=== PATIENT | male | born 1965 | race African-American/Black ===

== ENCOUNTER 2016-05-26 12:11 | Inpatient (IN) | payer MEDICARE, OTHER ==
[~2016-05-26] VITALS: Ht 167.6 cm; Wt 82.6 kg
[~2016-05-26 12:11] MED LIST: AMITRIPTYLINE MC; AMITRIPTYLINE25 MG ORAL; AMLODIPINE BES2.5 MG ORAL; CLONIDINE HCL0.1 MG PO; GABAPENTIN100 MG ORAL; GABAPENTIN300 MG ORAL; LISINOPRIL-HCT1 EAC1 ORAL; LYRICA50 MG ORAL; LYRICA75 M1 ORAL; NAPROXEN500 M2 ORAL; NEURONTIN800 MG ORAL; NORCO 10/3251 EA ORAL; NORCO 5-325 TA1 EAC1 ORAL; NORCO 5-325 TA1 EACH ORAL; NORVASC10 MG ORAL; OMEPRAZOLE20 M2 PO; ROBAXIN500 MG PO; TRAMADOL HCL50 MG ORAL; ULTRAM50 MG ORAL; UNOBMED
[2016-05-26] MEDS ORDERED: Morphine Sulfate 4mg/ml Inj IVP ONE ×2 (12:45→14:00)
[2016-05-26 13:09] LABS: BASOPHILS % (AUTO) 1.3 % (0.0-2.0); EOSINOPHILS % (AUTO) 3.9 % (0.0-3.0); LYMPHOCYTES % (AUTO) 17.1 % (20.0-45.0); MEAN CORPUSCULAR HEMOGLOBIN 29.7 PG (27.0-31.0); MEAN CORPUSCULAR HGB CONC 31.7 G/DL (32.0-36.0); MEAN CORPUSCULAR VOLUME 94 FL (80-99); MEAN PLATELET VOLUME 10.9 FL (6.5-10.1); MONOCYTES % (AUTO) 5.5 % (1.0-10.0); NEUTROPHILS % (AUTO) 72.2 % (45.0-75.0); PLATELET COUNT 192 K/UL (150-450); RED BLOOD COUNT 4.94 M/UL (4.70-6.10); RED CELL DISTRIBUTION WIDTH 13.3 % (11.6-14.8); WHITE BLOOD COUNT 7.9 K/UL (4.8-10.8)
[2016-05-26 13:22] LABS: ALBUMIN/GLOBULIN RATIO 1.6 (1.0-2.7); CALCIUM 9.7 mg/dL (8.6-10.2); CREATININE 1.7 mg/dL (0.7-1.2); GLOMERULAR FILTRATION RATE 52.2 mL/min (>60); POTASSIUM 3.9 mEQ/L (3.4-4.9); TOTAL PROTEIN 7.8 g/dL (6.6-8.7)
[2016-05-26 13:26] LABS: TROPONIN I < 0.30 ng/mL (<=0.30)
[2016-05-26 13:42] LABS: CKMB 1.9 ng/mL (< 6.7)
[2016-05-26 13:45] VITALS: BP 175/106
--- NOTE | 2016-05-26 14:40 | Diagnostic Imaging Report ---
Indication: Chest pain Technique: Single portable AP view of the chest. Findings: Comparison: 02/25/16 The bones and extra pulmonary soft tissues, cardiomediastinal silhouette, pulmonary vasculature and parenchyma, and pleural surfaces remain unremarkable. IMPRESSION: Negative portable AP chest, unchanged.
--- NOTE | 2016-05-26 15:02 | Emergency Room Report ---
History of Present Illness General Chief Complaint: Chest Pain Source: Patient, Medical Record Present Illness HPI 51-year-old male presents ED complaining of chest pain earache states symptoms started this morning while asleep, woke him up. Pain is sharp, midsternal, 10 out of 10. Worse with movement. Admits to shortness of breath. No other aggravating relieving factors. Patient states he also "passed out". Patient has history of heart disease and syncope. Denies smoking or drug use. PMD is Dr. Harry. Allergies: Coded Allergies: KETOROLAC (Unverified Adverse Reaction, Intermediate, n/v, 05/18/14) Uncoded Allergies: TORODOL (Allergy, Unknown, 02/25/16) Patient History Past Medical History: HTN, CVA/TIA Past Surgical History: other - spinal fusion Pertinent Family History: none Social History: Denies: alcohol use, drug use, smoking Immunizations: UTD Reviewed Nursing Documentation: PMH: Agreed, PSxH: Agreed Nursing Documentation-PMH Past Medical History: No History, Except For Hx Cardiac Problems: Yes Hx Hypertension: Yes Hx Cancer: No Hx Gastrointestinal Problems: No Hx Neurological Problems: Yes - spinal fusion Hx Cerebrovascular Accident: Yes - spinal fusion and stroke 2010 (left sided deficit) Hx Neurologic Surgery: Yes - brain surgery at [facility] Review of Systems All Other Systems: negative except mentioned in HPI Physical Exam Vital Signs Date Time Temp Pulse Resp B/P Pulse Ox O2 Delivery O2 Flow Rate FiO2 05/26/16 12:15 98.1 70 16 179/102 99 Room Air Sp02 EP Interpretation: reviewed, normal General Appearance: no apparent distress, alert, GCS 15, non-toxic Head: normocephalic, atraumatic Eyes: bilateral eye PERRL, bilateral eye normal inspection ENT: hearing grossly normal, normal pharynx, no angioedema, normal voice Neck: full range of motion, supple/symm/no masses Respiratory: chest non-tender, lungs clear, normal breath sounds, speaking full sentences Cardiovascular #1: regular rate, rhythm, no edema Cardiovascular #2: 2+ carotid (R), 2+ carotid (L), 2+ radial (R), 2+ radial (L) , 2+ dorsalis pedis (R), 2+ dorsalis pedis (L) Gastrointestinal: normal bowel sounds, non tender, soft, non-distended, no guarding, no rebound Rectal: deferred Genitourinary: normal inspection, no CVA tenderness Musculoskeletal: back normal, gait/station normal, normal range of motion, non- tender Neurologic: alert, oriented x3, responsive, motor strength/tone normal, sensory intact, speech normal Psychiatric: judgement/insight normal, memory normal, mood/affect normal, no suicidal/homicidal ideation Reflexes: 3+ bicep (R), 3+ bicep (L), 3+ tricep (R), 3+ tricep (L), 3+ knee (R) , 3+ knee (L) Skin: normal color, no rash, warm/dry, well hydrated Lymphatic: no adenopathy Medical Decision Making Diagnostic Impression: Primary Impression: ACS (acute coronary syndrome) Additional Impression: Syncope Qualified Codes: R55 - Syncope and collapse ER Course Hospital Course 51-year-old male presents ED complaining of chest pain, syncope Differential diagnoses include: MA/unstable angina, contusion, muscle strain, PTX, rib fracture Clinical course Patient placed on stretcher. on personnel monitor. After initial history and physical I ordered labs, EKG, chest x-ray, ASA, morphine labs reviewed- no leukocytosis, hb/hct stable, electrolytes ok, trop negative Chest x-ray- no acute process Given risk factors and presentation I believe patient should be admitted. Case discussed with Dr. Harry and he agreed to accept the patient to his service for further care and support I. I feel this is a highly complex case requiring extensive working including EKG/Rhythm strip, Xray/CT/US, Blood/urine lab work, repeat exams while in ED, and administration of strong opiates/narcotics for pain control, admission to hospital or close patient follow up. Diagnosis - ACS, syncope admitted to telemetry in serious condition Labs Test 05/26/16 12:48 White Blood Count 7.9 K/UL (4.8-10.8) Red Blood Count 4.94 M/UL (4.70-6.10) Hemoglobin 14.7 G/DL (14.2-18.0) Hematocrit 46.3 % (42.0-52.0) Mean Corpuscular Volume 94 FL (80-99) Mean Corpuscular Hemoglobin 29.7 PG (27.0-31.0) Mean Corpuscular Hemoglobin Concent 31.7 G/DL (32.0-36.0) Red Cell Distribution Width 13.3 % (11.6-14.8) Platelet Count 192 K/UL (150-450) Mean Platelet Volume 10.9 FL (6.5-10.1) Neutrophils (%) (Auto) 72.2 % (45.0-75.0) Lymphocytes (%) (Auto) 17.1 % (20.0-45.0) Monocytes (%) (Auto) 5.5 % (1.0-10.0) Eosinophils (%) (Auto) 3.9 % (0.0-3.0) Basophils (%) (Auto) 1.3 % (0.0-2.0) Sodium Level 140 mEQ/L (135-145) Potassium Level 3.9 mEQ/L (3.4-4.9) Chloride Level 99 mEQ/L (98-107) Carbon Dioxide Level 26 mEQ/L (20-30) Anion Gap 15 (5-15) Blood Urea Nitrogen 12 mg/dL (7-23) Creatinine 1.7 mg/dL (0.7-1.2) Estimat Glomerular Filtration Rate 52.2 mL/min (>60) Glucose Level 107 mg/dL (74-106) Calcium Level 9.7 mg/dL (8.6-10.2) Total Bilirubin 0.6 mg/dL (0.0-1.2) Aspartate Amino Transf (AST/SGOT) 14 U/L (5-40) Alanine Aminotransferase (ALT/SGPT) 9 U/L (3-41) Alkaline Phosphatase 35 U/L (40-129) Total Creatine Kinase 316 U/L (38-174) Creatine Kinase MB 1.9 ng/mL (< 6.7) Creatine Kinase MB Relative Index 0.6 Troponin I < 0.30 ng/mL (<=0.30) Pro-B-Type Natriuretic Peptide 261 pg/mL (0-125) Total Protein 7.8 g/dL (6.6-8.7) Albumin 4.8 g/dL (3.5-5.2) Globulin 3.0 g/dL Albumin/Globulin Ratio 1.6 (1.0-2.7) Urine Opiates Screen Negative (NEGATIVE) Urine Barbiturates Screen Negative (NEGATIVE) Phencyclidine (PCP) Screen Negative (NEGATIVE) Urine Amphetamines Screen Negative (NEGATIVE) Urine Benzodiazepines Screen Negative (NEGATIVE) Urine Cocaine Screen Negative (NEGATIVE) Urine Marijuana (THC) Screen Positive (NEGATIVE) EKG Diagnostic Results Rate: normal Rhythm: NSR ST Segments: no acute changes ASA given to the pt in ED: Yes Rhythm Strip Diag. Results EP Interpretation: yes Rhythm: NSR, no PVC's, no ectopy Chest X-Ray Diagnostic Results EP Interpretation: Yes Findings: no consolidation, no effusion, no pneumothorax, no acute cardiopulmonary disease Number of Views: 1 Last Vital Signs Date Time Temp Pulse Resp B/P Pulse Ox O2 Delivery O2 Flow Rate FiO2 05/26/16 13:45 66 18 175/106 99 Room Air 05/26/16 12:15 98.1 Status: improved Disposition: ADMITTED INPATIENT Condition: Serious Referrals: ARELY HARRY (PCP) RAYMUNDO VALDEZ M.D. May 26, 2016 15:02
[2016-05-26 15:23] VITALS: BP 132/108
[2016-05-26 16:59] VITALS: BP 152/103
[2016-05-26] MEDS ORDERED: Naproxen 500mg tab ORAL PRN (20:45)
[2016-05-26] MEDS: HYDROmorphone 1mg/ml Carpuject IVP PRN (21:35)
[2016-05-27 01:21] VITALS: BP 150/100
[2016-05-27 04:12] VITALS: BP 149/102
[2016-05-27] MEDS: HYDROmorphone 1mg/ml Carpuject IVP PRN ×3 (06:17→18:28)
[2016-05-27 08:00] VITALS: BP 130/66
[2016-05-27 08:19] LABS: TROPONIN I < 0.30 ng/mL (<=0.30)
[2016-05-27 08:35] LABS: CALCIUM 9.4 mg/dL (8.6-10.2); CREATININE 1.6 mg/dL (0.7-1.2); POTASSIUM 4.3 mEQ/L (3.4-4.9)
[2016-05-27 08:49] LABS: BASOPHILS % (AUTO) 0.8 % (0.0-2.0); EOSINOPHILS % (AUTO) 5.8 % (0.0-3.0); LYMPHOCYTES % (AUTO) 22.8 % (20.0-45.0); MEAN CORPUSCULAR HGB CONC 31.2 G/DL (32.0-36.0); MEAN CORPUSCULAR VOLUME 96 FL (80-99); MEAN PLATELET VOLUME 9.4 FL (6.5-10.1); MONOCYTES % (AUTO) 6.2 % (1.0-10.0); NEUTROPHILS % (AUTO) 64.5 % (45.0-75.0); PLATELET COUNT 172 K/UL (150-450); RED BLOOD COUNT 4.57 M/UL (4.70-6.10); WHITE BLOOD COUNT 6.8 K/UL (4.8-10.8)
[2016-05-27] MEDS: Lisinopril 20mg tab ORAL SCH ×2 (09:06→18:28)
[2016-05-27 12:37] LABS: TROPONIN I < 0.30 ng/mL (<=0.30)
--- NOTE | 2016-05-27 13:04 | Nephrology Progress Note ---
Assessment/Plan Problem List: (1) Back complaints (2) back (3) Fall (4) Renal failure (ARF), acute on chronic (5) Syncope (6) ACS (acute coronary syndrome) Plan nephrology consult dictation # [id number] Subjective Constitutional: Denies: chills, diaphoresis, fever, malaise, no symptoms, other , weakness HEENT: Denies: blurred vision, double vision, ear discharge, ear pain, eye pain , mouth pain, mouth swelling, no symptoms, nose congestion, nose pain, other, tearing, throat pain, throat swelling Genitourinary: Denies: burning, discharge, flank pain, frequency, hematuria, incontinence, no symptoms, other, pain, urgency Neurologic/Psychiatric: Denies: anxiety, depressed, emotional problems, headache, no symptoms, numbness, other, paresthesia, pre-existing deficit, seizure, tingling, tremors, weakness Objective Objective Last 24 Hour Vital Signs Date Time Temp Pulse Resp B/P Pulse Ox O2 Delivery O2 Flow Rate FiO2 05/27/16 09:06 132/66 05/27/16 08:00 75 05/27/16 08:00 97.7 81 17 130/66 95 Room Air 05/27/16 06:47 98.2 05/27/16 04:12 97.7 58 20 149/102 97 Room Air 05/27/16 04:00 70 05/27/16 01:21 98.0 70 20 150/100 98 Room Air 05/26/16 20:00 65 05/26/16 17:08 99.0 74 15 152/103 99 Room Air 05/26/16 16:59 99.0 74 15 152/103 99 Room Air 05/26/16 15:26 99.3 05/26/16 15:23 99.3 75 17 132/108 98 Room Air 05/26/16 13:45 66 18 175/106 99 Room Air Intake and Output 05/26/16 05/27/16 19:00 07:00 Intake Total 60 ml Balance 60 ml Intake Oral 60 ml # Voids 1 Laboratory Tests 05/27/16 06:35: White Blood Count 6.8, Red Blood Count 4.57L, Hemoglobin 13.7L, Hematocrit 43.8 , Mean Corpuscular Volume 96, Mean Corpuscular Hemoglobin 30.0, Mean Corpuscular Hemoglobin Concent 31.2L, Red Cell Distribution Width 13.0, Platelet Count 172, Mean Platelet Volume 9.4, Neutrophils (%) (Auto) 64.5, Lymphocytes (%) (Auto) 22.8, Monocytes (%) (Auto) 6.2, Eosinophils (%) (Auto) 5.8H, Basophils (%) (Auto) 0.8, Sodium Level 144, Potassium Level 4.3, Chloride Level 102, Carbon Dioxide Level 27, Anion Gap 15, Blood Urea Nitrogen 12, Creatinine 1.6H, Estimat Glomerular Filtration Rate 56.0, Glucose Level 91, Calcium Level 9.4, Troponin I < 0.30 05/27/16 12:00: Troponin I < 0.30 Height (Feet): 5 Height (Inches): 6.00 Weight (Pounds): 182 Soraya Cardenas N.P. May 27, 2016 13:04
[2016-05-27 16:00] VITALS: BP 139/94
--- NOTE | 2016-05-27 17:40 | Cardiac Electrophysiology PN ---
Subjective Subjective [id number] Objective Last 24 Hour Vital Signs Date Time Temp Pulse Resp B/P Pulse Ox O2 Delivery O2 Flow Rate FiO2 05/27/16 16:00 98.1 64 20 139/94 99 Room Air 05/27/16 12:55 97.7 05/27/16 12:55 97.7 05/27/16 12:00 61 05/27/16 09:06 132/66 05/27/16 08:00 75 05/27/16 08:00 97.7 81 17 130/66 95 Room Air 05/27/16 04:12 97.7 58 20 149/102 97 Room Air 05/27/16 04:00 70 05/27/16 01:21 98.0 70 20 150/100 98 Room Air 05/26/16 20:00 65 Intake and Output 05/26/16 05/27/16 19:00 07:00 Intake Total 60 ml Balance 60 ml Intake Oral 60 ml # Voids 1 Laboratory Tests Test 05/27/16 06:35 05/27/16 12:00 White Blood Count 6.8 K/UL (4.8-10.8) Red Blood Count 4.57 M/UL (4.70-6.10) L Hemoglobin 13.7 G/DL (14.2-18.0) L Hematocrit 43.8 % (42.0-52.0) Mean Corpuscular Volume 96 FL (80-99) Mean Corpuscular Hemoglobin 30.0 PG (27.0-31.0) Mean Corpuscular Hemoglobin Concent 31.2 G/DL (32.0-36.0) L Red Cell Distribution Width 13.0 % (11.6-14.8) Platelet Count 172 K/UL (150-450) Mean Platelet Volume 9.4 FL (6.5-10.1) Neutrophils (%) (Auto) 64.5 % (45.0-75.0) Lymphocytes (%) (Auto) 22.8 % (20.0-45.0) Monocytes (%) (Auto) 6.2 % (1.0-10.0) Eosinophils (%) (Auto) 5.8 % (0.0-3.0) H Basophils (%) (Auto) 0.8 % (0.0-2.0) Sodium Level 144 mEQ/L (135-145) Potassium Level 4.3 mEQ/L (3.4-4.9) Chloride Level 102 mEQ/L (98-107) Carbon Dioxide Level 27 mEQ/L (20-30) Anion Gap 15 (5-15) Blood Urea Nitrogen 12 mg/dL (7-23) Creatinine 1.6 mg/dL (0.7-1.2) H Estimat Glomerular Filtration Rate 56.0 mL/min (>60) Glucose Level 91 mg/dL (74-106) Calcium Level 9.4 mg/dL (8.6-10.2) Troponin I < 0.30 ng/mL (<=0.30) < 0.30 ng/mL (<=0.30) JAIDEN MCRAE May 27, 2016 17:40
--- NOTE | 2016-05-27 19:47 | Consultation ---
DATE OF CONSULTATION: 05/27/2016 PULMONARY CONSULTATION HISTORY OF PRESENT ILLNESS: This is a 51-year-old male who came to the hospital with chest pain. He also reports he has earache. The patient states that this rattling in his chest and discomfort woke him up from sleep. He also states he passed out. PAST MEDICAL HISTORY: Hypertension, CVA, spinal fusion. PAST SURGICAL HISTORY: He previously had tracheostomy in 2010 after a complicated stroke. LIST OF MEDICATIONS: Include Neurontin, Protonix, lisinopril, aspirin, Naprosyn, and tramadol. ALLERGIES: Listed to Toradol. SOCIAL HISTORY: Lives at home. Denies alcohol tobacco use. 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 REVIEW OF SYSTEMS: Denies any headaches, hematemesis, melena, hematochezia, night sweats, or weight loss. PHYSICAL EXAMINATION: GENERAL: Reveals a 51-year-old male VITAL SIGNS: Blood pressure 130/60, heart rate 94, respiration 18, afebrile, O2 saturation 95% on room air. HEENT: Unremarkable. He has a well-healed tracheostomy scar on his upper chest. CHEST: Clear breath sounds bilaterally. ABDOMEN: Soft. There is no edema. EXTREMITIES: His left upper and left lower extremity appear to be weak with 4+/5 power. LABORATORY AND DIAGNOSTIC DATA: Normal CBC. BMP is also unremarkable except creatinine 1.6. Toxicology screen positive for marijuana. Chest x-ray chest was obtained yesterday which shows clear lungs bilaterally. IMPRESSION: 1. Chest pain, atypical rule out acute coronary syndrome. 2. History of previous tracheostomy. 3. History of previous cerebrovascular accident with left hemiparesis, partial. 4. Marijuana use. DISCUSSION: The patient is doing well from a medical/pulmonary standpoint, saturating well on room air. At this point, I do not suspect infectious process or need for acute pulmonary intervention. We will follow as pension examiner. Thank you for the consultation. Saud Ellis M.D. DR: Hayley JOB#: [id number] CC:
[2016-05-27 20:00] VITALS: BP 175/100
[2016-05-27 20:47] LABS: TROPONIN I < 0.30 ng/mL (<=0.30)
[2016-05-27 20:49] VITALS: BP 156/94
[2016-05-27] MEDS: traMADol 50mg tab ORAL PRN (21:04)
[2016-05-28] VITALS: BP 152/98
[2016-05-28] MEDS: HYDROmorphone 1mg/ml Carpuject IVP PRN ×4 (00:01→19:08)
[2016-05-28 04:47] LABS: BASOPHILS % (AUTO) 1.9 % (0.0-2.0); EOSINOPHILS % (AUTO) 7.7 % (0.0-3.0); LYMPHOCYTES % (AUTO) 31.2 % (20.0-45.0); MEAN CORPUSCULAR HEMOGLOBIN 29.6 PG (27.0-31.0); MEAN CORPUSCULAR VOLUME 96 FL (80-99); MEAN PLATELET VOLUME 10.2 FL (6.5-10.1); MONOCYTES % (AUTO) 6.5 % (1.0-10.0); NEUTROPHILS % (AUTO) 52.7 % (45.0-75.0); PLATELET COUNT 199 K/UL (150-450); RED BLOOD COUNT 4.79 M/UL (4.70-6.10); RED CELL DISTRIBUTION WIDTH 13.5 % (11.6-14.8); WHITE BLOOD COUNT 7.6 K/UL (4.8-10.8)
--- NOTE | 2016-05-28 04:57 | Consultation ---
DATE OF CONSULTATION: CARDIOLOGY CONSULTATION REFERRING PHYSICIAN: Matheus Lucas M.D. REASON FOR CONSULTATION: Chest pain and syncope. HISTORY OF PRESENT ILLNESS: The patient is a 51-year-old gentleman with history of hypertension and history of CVA, came to the emergency room complaining of chest pain while he was asleep. The pain woke him up was 10/10. The patient also had shortness of breath. The patient also stated that subsequently he passed out and he stated he had history of syncope in the past. The patient was admitted and Cardiology consultation was obtained for further evaluation and management. REVIEW OF SYSTEMS: Negative other than what was mentioned in the history of present illness. PAST MEDICAL HISTORY: 1. Hypertension. 2. History of CVA in 2010 with left-sided deficit. 3. History of brain surgery at [facility]. 4. History of spinal fusion. FAMILY HISTORY: Noncontributory. PHYSICAL EXAMINATION: VITAL SIGNS: Blood pressure is 139/94, pulse 64, respirations 20, and he is afebrile. HEAD AND NECK: Shows no JVD. LUNGS: Clear. CARDIOVASCULAR: Shows regular S1 and S2 with no gallop or murmur. ABDOMEN: Soft and nontender. EXTREMITIES: No pitting edema. LABORATORY AND DIAGNOSTIC DATA: Labs showed white count of 6.8, hemoglobin 13.7, hematocrit 42.0, and platelet count 172,000. Troponin is negative x3. Sodium 144, potassium 4.2, BUN of 16, creatinine 1.6, and glucose of 91. BNP is 261. Urine toxicology screen is positive for marijuana. IMPRESSION AND PLAN: 1. Chest pain. The patient was ruled out for myocardial infarction. We will get an echocardiogram and schedule for nuclear stress test in the morning for further evaluation. 2. Orthostatic syncope. The patient was found to have similar episodes in the past. 3. Renal insufficiency. 4. Hypertension. Continue the patient on lisinopril 10 mg twice a day. 5. . Thank you very much, Dr. Lucas, for allowing me to participate in the care of this patient. Please do not hesitate to contact me for any questions regarding my evaluation. Dani Gould M.D. DR: SUSANNE JOB#: [id number] CC:
[2016-05-28 05:01] LABS: TROPONIN I < 0.30 ng/mL (<=0.30)
[2016-05-28 05:19] LABS: CALCIUM 9.2 mg/dL (8.6-10.2); CREATININE 1.7 mg/dL (0.7-1.2); GLOMERULAR FILTRATION RATE 52.2 mL/min (>60); POTASSIUM 4.4 mEQ/L (3.4-4.9)
[2016-05-28 08:00] VITALS: BP 138/99
--- NOTE | 2016-05-28 08:37 | Pulmonology Progress Note ---
Assessment/Plan Assessment/Plan 1. Chest pain, rule out acute coronary syndrome. 2. History of previous tracheostomy. 3. History of previous cerebrovascular accident with left hemiparesis, partial. 4. Marijuana use. DISCUSSION: The patient is doing well from a medical/pulmonary standpoint, saturating well on room air. At this point, I do not suspect infectious process or need for acute pulmonary intervention. I will follow as studio designer. Thank you for the consultation. Subjective Interval Events: No new events Constitutional: Reports: no symptoms HEENT: Repors: no symptoms Respiratory: Reports: no symptoms Cardiovascular: Reports: no symptoms Gastrointestinal/Abdominal: Reports: no symptoms Genitourinary: Reports: no symptoms Allergies: Coded Allergies: KETOROLAC (Unverified Adverse Reaction, Intermediate, n/v, 05/18/14) Uncoded Allergies: TORODOL (Allergy, Unknown, 02/25/16) Objective Last 24 Hour Vital Signs Date Time Temp Pulse Resp B/P Pulse Ox O2 Delivery O2 Flow Rate FiO2 05/28/16 03:46 57 05/28/16 00:00 96.4 52 20 152/98 93 Room Air 05/27/16 23:44 59 05/27/16 20:49 60 20 156/94 100 Room Air 05/27/16 20:00 98.0 66 21 175/100 100 Room Air 05/27/16 19:57 68 05/27/16 18:58 98.1 05/27/16 18:58 98.1 05/27/16 18:28 139/94 05/27/16 16:00 70 05/27/16 16:00 98.1 64 20 139/94 99 Room Air 05/27/16 12:00 61 05/27/16 09:06 132/66 Intake and Output 05/27/16 05/28/16 19:00 07:00 Intake Total 1040 ml Output Total 550 ml 600 ml Balance 490 ml -600 ml Intake Oral 1040 ml Output Urine Total 550 ml 600 ml # Voids 3 1 General Appearance: WD/WN HEENT: normocephalic Respiratory/Chest: chest wall non-tender, lungs clear Cardiovascular: normal peripheral pulses, normal rate Abdomen: normal bowel sounds Laboratory Tests 05/27/16 12:00: Troponin I < 0.30 05/27/16 20:00: Troponin I < 0.30 05/28/16 04:20: Troponin I < 0.30, White Blood Count 7.6, Red Blood Count 4.79, Hemoglobin 14.2 , Hematocrit 45.8, Mean Corpuscular Volume 96, Mean Corpuscular Hemoglobin 29.6 , Mean Corpuscular Hemoglobin Concent 31.0L, Red Cell Distribution Width 13.5, Platelet Count 199, Mean Platelet Volume 10.2H, Neutrophils (%) (Auto) 52.7, Lymphocytes (%) (Auto) 31.2, Monocytes (%) (Auto) 6.5, Eosinophils (%) (Auto) 7.7H, Basophils (%) (Auto) 1.9, Sodium Level 139, Potassium Level 4.4, Chloride Level 101, Carbon Dioxide Level 23, Anion Gap 15, Blood Urea Nitrogen 12, Creatinine 1.7H, Estimat Glomerular Filtration Rate 52.2, Glucose Level 95, Calcium Level 9.2 Current Medications Medications (Trade) Dose Ordered Sig/Mahsa Route PRN Reason Start Time Stop Time Status Last Admin Dose Admin Aspirin (ASA) 325 mg DAILY ORAL 05/27/16 09:00 06/26/16 08:59 05/27/16 09:02 Dextrose (Dextrose 50%) STAT PRN IV Hypoglycemia 05/26/16 20:30 06/25/16 20:29 Gabapentin (Neurontin) 100 mg THREE TIMES A DAY ORAL 05/27/16 09:00 06/26/16 08:59 05/27/16 18:28 Hydromorphone HCl (Dilaudid) 1 mg Q6H PRN IVP Severe Pain (Pain Scale 7-10) 05/26/16 20:45 06/02/16 20:44 05/28/16 06:01 Lisinopril (Prinivil) 20 mg BID ORAL 05/27/16 09:00 06/26/16 08:59 05/27/16 18:28 Naproxen (Naprosyn) 500 mg TIDPRN PRN ORAL Mild Pain (Pain Scale 1-3) 05/26/16 20:45 06/25/16 20:44 05/27/16 21:11 Pantoprazole (Protonix) 40 mg DAILY ORAL 05/27/16 09:00 06/26/16 08:59 05/27/16 09:04 Tramadol HCl (Ultram) 50 mg Q6H PRN ORAL Moderate Pain (Pain Scale 4-6) 05/26/16 20:45 06/02/16 20:44 05/27/16 21:04 Saud Ellis MD May 28, 2016 08:37
[2016-05-28] MEDS: Lisinopril 20mg tab ORAL SCH ×2 (09:33→17:28)
--- NOTE | 2016-05-28 10:21 | Nephrology Progress Note ---
Assessment/Plan Problem List: (1) Back complaints (2) back (3) Fall (4) Renal failure (ARF), acute on chronic (5) Syncope (6) ACS (acute coronary syndrome) (7) Chest pain (8) HTN (hypertension) Assessment Discussed with Dr Pruett Plan Pain management Cardio and pulmo f/u - will f/u with recs Stable lytes Monitor creatinine Monitor BP AM labs Subjective Subjective In bed asleep, c/o chest pain last night, stable with dilaudid Objective Objective Last 24 Hour Vital Signs Date Time Temp Pulse Resp B/P Pulse Ox O2 Delivery O2 Flow Rate FiO2 05/28/16 09:33 152/98 05/28/16 08:00 62 05/28/16 03:46 57 05/28/16 00:00 96.4 52 20 152/98 93 Room Air 05/27/16 23:44 59 05/27/16 20:49 60 20 156/94 100 Room Air 05/27/16 20:00 98.0 66 21 175/100 100 Room Air 05/27/16 19:57 68 05/27/16 18:58 98.1 05/27/16 18:58 98.1 05/27/16 18:28 139/94 05/27/16 16:00 70 05/27/16 16:00 98.1 64 20 139/94 99 Room Air 05/27/16 12:00 61 Intake and Output 05/27/16 05/28/16 19:00 07:00 Intake Total 1040 ml Output Total 550 ml 600 ml Balance 490 ml -600 ml Intake Oral 1040 ml Output Urine Total 550 ml 600 ml # Voids 3 1 Laboratory Tests 05/27/16 12:00: Troponin I < 0.30 05/27/16 20:00: Troponin I < 0.30 05/28/16 04:20: Troponin I < 0.30, White Blood Count 7.6, Red Blood Count 4.79, Hemoglobin 14.2 , Hematocrit 45.8, Mean Corpuscular Volume 96, Mean Corpuscular Hemoglobin 29.6 , Mean Corpuscular Hemoglobin Concent 31.0L, Red Cell Distribution Width 13.5, Platelet Count 199, Mean Platelet Volume 10.2H, Neutrophils (%) (Auto) 52.7, Lymphocytes (%) (Auto) 31.2, Monocytes (%) (Auto) 6.5, Eosinophils (%) (Auto) 7.7H, Basophils (%) (Auto) 1.9, Sodium Level 139, Potassium Level 4.4, Chloride Level 101, Carbon Dioxide Level 23, Anion Gap 15, Blood Urea Nitrogen 12, Creatinine 1.7H, Estimat Glomerular Filtration Rate 52.2, Glucose Level 95, Calcium Level 9.2 Height (Feet): 5 Height (Inches): 6.00 Weight (Pounds): 182 General Appearance: no apparent distress, alert EENT: normal ENT inspection Neck: normal alignment, supple Cardiovascular: normal rate, regular rhythm Respiratory/Chest: lungs clear, normal breath sounds, no respiratory distress Abdomen: non tender, soft, no organomegaly, no mass Extremities: non-tender, normal inspection, no calf tenderness Neurologic: alert, oriented x 3, responsive, normal mood/affect Soraya Cardenas N.P. May 28, 2016 10:21
[2016-05-28 12:00] VITALS: BP 134/92
[2016-05-28 13:27] LABS: TROPONIN I < 0.30 ng/mL (<=0.30)
[2016-05-28 16:00] VITALS: BP 153/94
[2016-05-28] MEDS: traMADol 50mg tab ORAL PRN (16:26)
[2016-05-28 20:00] VITALS: BP 168/94
[2016-05-28 20:49] LABS: TROPONIN I < 0.30 ng/mL (<=0.30)
[2016-05-29] VITALS: BP 144/90
[2016-05-29] MEDS: HYDROmorphone 1mg/ml Carpuject IVP PRN ×4 (00:57→19:52)
[2016-05-29 04:00] VITALS: BP 125/88
[2016-05-29 04:32] LABS: BASOPHILS % (AUTO) 1.8 % (0.0-2.0); EOSINOPHILS % (AUTO) 7.5 % (0.0-3.0); LYMPHOCYTES % (AUTO) 28.3 % (20.0-45.0); MEAN CORPUSCULAR HEMOGLOBIN 30.4 PG (27.0-31.0); MEAN CORPUSCULAR HGB CONC 31.6 G/DL (32.0-36.0); MEAN CORPUSCULAR VOLUME 96 FL (80-99); MEAN PLATELET VOLUME 9.2 FL (6.5-10.1); MONOCYTES % (AUTO) 7.1 % (1.0-10.0); NEUTROPHILS % (AUTO) 55.4 % (45.0-75.0); PLATELET COUNT 220 K/UL (150-450); RED BLOOD COUNT 4.66 M/UL (4.70-6.10); RED CELL DISTRIBUTION WIDTH 13.5 % (11.6-14.8)
[2016-05-29 04:48] LABS: CALCIUM 9.2 mg/dL (8.6-10.2); CREATININE 1.7 mg/dL (0.7-1.2); GLOMERULAR FILTRATION RATE 52.2 mL/min (>60); POTASSIUM 3.9 mEQ/L (3.4-4.9)
[2016-05-29 04:57] LABS: TROPONIN I < 0.30 ng/mL (<=0.30)
[2016-05-29 08:00] VITALS: BP 131/85
--- NOTE | 2016-05-29 09:21 | Pulmonology Progress Note ---
Assessment/Plan Assessment/Plan 1. Chest pain, rule out acute coronary syndrome. 2. History of previous tracheostomy. 3. History of previous cerebrovascular accident with left hemiparesis, partial. 4. Marijuana use. DISCUSSION: The patient is doing well from a pulmonary standpoint He is saturating well on room air. I do not suspect infectious process or need for acute pulmonary intervention. 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 Subjective Interval Events: None Constitutional: Reports: no symptoms HEENT: Repors: no symptoms Respiratory: Reports: no symptoms Cardiovascular: Reports: no symptoms Gastrointestinal/Abdominal: Reports: no symptoms Allergies: Coded Allergies: KETOROLAC (Unverified Adverse Reaction, Intermediate, n/v, 05/18/14) Uncoded Allergies: TORODOL (Allergy, Unknown, 02/25/16) Objective Last 24 Hour Vital Signs Date Time Temp Pulse Resp B/P Pulse Ox O2 Delivery O2 Flow Rate FiO2 05/29/16 08:00 97.0 55 16 131/85 98 Room Air 05/29/16 08:00 60 05/29/16 04:00 97.7 70 20 125/88 95 Room Air 05/29/16 03:57 88 05/29/16 00:00 97.7 65 16 144/90 97 Room Air 05/28/16 23:58 72 05/28/16 20:00 65 05/28/16 20:00 97.0 71 20 168/94 96 Room Air 05/28/16 17:28 153/94 05/28/16 16:00 60 05/28/16 16:00 97.6 58 21 153/94 96 Room Air 05/28/16 13:06 96.4 05/28/16 12:00 97.0 52 20 134/92 100 Room Air 05/28/16 09:33 152/98 Intake and Output 05/28/16 05/29/16 19:00 07:00 Intake Total 450 ml 540 ml Output Total 500 ml Balance 450 ml 40 ml Intake Oral 450 ml 540 ml Output Urine Total 500 ml # Voids 2 1 General Appearance: WD/WN HEENT: normocephalic Respiratory/Chest: chest wall non-tender, lungs clear Cardiovascular: normal peripheral pulses, normal rate Laboratory Tests 05/28/16 11:45: Troponin I < 0.30 05/28/16 20:05: Troponin I < 0.30 05/29/16 04:08: Troponin I < 0.30, White Blood Count 8.0, Red Blood Count 4.66L, Hemoglobin 14.2 , Hematocrit 44.8, Mean Corpuscular Volume 96, Mean Corpuscular Hemoglobin 30.4 , Mean Corpuscular Hemoglobin Concent 31.6L, Red Cell Distribution Width 13.5, Platelet Count 220, Mean Platelet Volume 9.2, Neutrophils (%) (Auto) 55.4, Lymphocytes (%) (Auto) 28.3, Monocytes (%) (Auto) 7.1, Eosinophils (%) (Auto) 7.5H, Basophils (%) (Auto) 1.8, Sodium Level 143, Potassium Level 3.9, Chloride Level 105, Carbon Dioxide Level 22, Anion Gap 16H, Blood Urea Nitrogen 14, Creatinine 1.7H, Estimat Glomerular Filtration Rate 52.2, Glucose Level 98, Calcium Level 9.2 Current Medications Medications (Trade) Dose Ordered Sig/Mahsa Route PRN Reason Start Time Stop Time Status Last Admin Dose Admin Aspirin (ASA) 325 mg DAILY ORAL 05/27/16 09:00 06/26/16 08:59 05/28/16 09:33 Dextrose (Dextrose 50%) STAT PRN IV Hypoglycemia 05/26/16 20:30 06/25/16 20:29 Gabapentin (Neurontin) 100 mg THREE TIMES A DAY ORAL 05/27/16 09:00 06/26/16 08:59 05/28/16 17:28 Hydromorphone HCl (Dilaudid) 1 mg Q6H PRN IVP Severe Pain (Pain Scale 7-10) 05/26/16 20:45 06/02/16 20:44 05/29/16 07:10 Lisinopril (Prinivil) 20 mg BID ORAL 05/27/16 09:00 06/26/16 08:59 05/28/16 17:28 Naproxen (Naprosyn) 500 mg TIDPRN PRN ORAL Mild Pain (Pain Scale 1-3) 05/26/16 20:45 06/25/16 20:44 05/27/16 21:11 Pantoprazole (Protonix) 40 mg DAILY ORAL 05/27/16 09:00 06/26/16 08:59 05/28/16 09:33 Tramadol HCl (Ultram) 50 mg Q6H PRN ORAL Moderate Pain (Pain Scale 4-6) 05/26/16 20:45 06/02/16 20:44 05/28/16 16:26 Saud Ellis MD May 29, 2016 09:21
[2016-05-29] MEDS: Lisinopril 20mg tab ORAL SCH ×2 (09:22→17:01)
[2016-05-29 12:00] VITALS: BP_SYST 104; BP_SYST 148; BP_DIAS 66; BP_DIAS 80
[2016-05-29 12:59] LABS: TROPONIN I < 0.30 ng/mL (<=0.30)
[2016-05-29] MEDS ORDERED: Adenosine Inj IVP ONE (13:30)
--- NOTE | 2016-05-29 14:11 | Nephrology Progress Note ---
Assessment/Plan Problem List: (1) Back complaints (2) back (3) Fall (4) Renal failure (ARF), acute on chronic (5) Syncope (6) ACS (acute coronary syndrome) (7) Chest pain (8) HTN (hypertension) Assessment Discussed with Dr Pruett Plan Pain management Cardio and pulmo f/u - will f/u with recs Stable lytes Monitor creatinine Monitor BP AM labs Subjective Constitutional: Denies: chills, diaphoresis, fever, malaise, no symptoms, other , weakness HEENT: Denies: blurred vision, double vision, ear discharge, ear pain, eye pain , mouth pain, mouth swelling, no symptoms, nose congestion, nose pain, other, tearing, throat pain, throat swelling Genitourinary: Denies: burning, discharge, flank pain, frequency, hematuria, incontinence, no symptoms, other, pain, urgency Subjective In bed, in no distress Objective Objective Last 24 Hour Vital Signs Date Time Temp Pulse Resp B/P Pulse Ox O2 Delivery O2 Flow Rate FiO2 05/29/16 12:00 97.2 66 17 148/80 95 Room Air 2.0 05/29/16 12:00 68 05/29/16 10:20 97.0 05/29/16 09:22 131/85 05/29/16 08:00 97.0 55 16 131/85 98 Room Air 05/29/16 08:00 60 05/29/16 07:40 97.0 05/29/16 04:00 97.7 70 20 125/88 95 Room Air 05/29/16 03:57 88 05/29/16 00:00 97.7 65 16 144/90 97 Room Air 05/28/16 23:58 72 05/28/16 20:00 65 05/28/16 20:00 97.0 71 20 168/94 96 Room Air 05/28/16 17:28 153/94 05/28/16 16:00 60 05/28/16 16:00 97.6 58 21 153/94 96 Room Air Intake and Output 05/28/16 05/29/16 19:00 07:00 Intake Total 450 ml 540 ml Output Total 500 ml Balance 450 ml 40 ml Intake Oral 450 ml 540 ml Output Urine Total 500 ml # Voids 2 1 Laboratory Tests 05/28/16 20:05: Troponin I < 0.30 05/29/16 04:08: Troponin I < 0.30, White Blood Count 8.0, Red Blood Count 4.66L, Hemoglobin 14.2 , Hematocrit 44.8, Mean Corpuscular Volume 96, Mean Corpuscular Hemoglobin 30.4 , Mean Corpuscular Hemoglobin Concent 31.6L, Red Cell Distribution Width 13.5, Platelet Count 220, Mean Platelet Volume 9.2, Neutrophils (%) (Auto) 55.4, Lymphocytes (%) (Auto) 28.3, Monocytes (%) (Auto) 7.1, Eosinophils (%) (Auto) 7.5H, Basophils (%) (Auto) 1.8, Sodium Level 143, Potassium Level 3.9, Chloride Level 105, Carbon Dioxide Level 22, Anion Gap 16H, Blood Urea Nitrogen 14, Creatinine 1.7H, Estimat Glomerular Filtration Rate 52.2, Glucose Level 98, Calcium Level 9.2 05/29/16 11:55: Troponin I < 0.30 Height (Feet): 5 Height (Inches): 6.00 Weight (Pounds): 182 General Appearance: no apparent distress, alert EENT: normal ENT inspection, TMs normal Neck: normal alignment, supple Cardiovascular: normal rate, regular rhythm, no JVD Respiratory/Chest: lungs clear, normal breath sounds, no respiratory distress Abdomen: non tender, soft, no organomegaly Extremities: normal range of motion, non-tender, normal inspection, no calf tenderness Neurologic: alert, oriented x 3, responsive, normal mood/affect Soraya Cardenas N.P. May 29, 2016 14:11
[2016-05-29 16:00] VITALS: BP 150/71
--- NOTE | 2016-05-29 17:50 | Cardiac Electrophysiology PN ---
Assessment/Plan Assessment/Plan 1. Chest pain. The patient was ruled out for myocardial infarction. Echocardiogram showed EF 55-60%.Nuclear stress test report pending. 2. Orthostatic syncope. 3. Renal insufficiency.Creatinine 1.7 unchanged despite Lisinopril 20 bid. 4. Hypertension. Add Norvasc 5 mg daily. 5. Back pain. ASHLEY RN Subjective Subjective Had adenosine cardiolite today Results still pending.No chest pain. BP still high. Objective Last 24 Hour Vital Signs Date Time Temp Pulse Resp B/P Pulse Ox O2 Delivery O2 Flow Rate FiO2 05/29/16 17:01 150/71 05/29/16 16:00 98.2 68 14 150/71 98 Room Air 05/29/16 14:15 97.2 05/29/16 14:15 97.2 05/29/16 12:00 97.2 66 17 148/80 95 Room Air 2.0 05/29/16 12:00 68 05/29/16 09:22 131/85 05/29/16 08:00 97.0 55 16 131/85 98 Room Air 05/29/16 08:00 60 05/29/16 04:00 97.7 70 20 125/88 95 Room Air 05/29/16 03:57 88 05/29/16 00:00 97.7 65 16 144/90 97 Room Air 05/28/16 23:58 72 05/28/16 20:00 65 05/28/16 20:00 97.0 71 20 168/94 96 Room Air Intake and Output 05/28/16 05/29/16 19:00 07:00 Intake Total 450 ml 540 ml Output Total 500 ml Balance 450 ml 40 ml Intake Oral 450 ml 540 ml Output Urine Total 500 ml # Voids 2 1 Laboratory Tests Test 05/28/16 20:05 05/29/16 04:08 05/29/16 11:55 Troponin I < 0.30 ng/mL (<=0.30) < 0.30 ng/mL (<=0.30) < 0.30 ng/mL (<=0.30) White Blood Count 8.0 K/UL (4.8-10.8) Red Blood Count 4.66 M/UL (4.70-6.10) L Hemoglobin 14.2 G/DL (14.2-18.0) Hematocrit 44.8 % (42.0-52.0) Mean Corpuscular Volume 96 FL (80-99) Mean Corpuscular Hemoglobin 30.4 PG (27.0-31.0) Mean Corpuscular Hemoglobin Concent 31.6 G/DL (32.0-36.0) L Red Cell Distribution Width 13.5 % (11.6-14.8) Platelet Count 220 K/UL (150-450) Mean Platelet Volume 9.2 FL (6.5-10.1) Neutrophils (%) (Auto) 55.4 % (45.0-75.0) Lymphocytes (%) (Auto) 28.3 % (20.0-45.0) Monocytes (%) (Auto) 7.1 % (1.0-10.0) Eosinophils (%) (Auto) 7.5 % (0.0-3.0) H Basophils (%) (Auto) 1.8 % (0.0-2.0) Sodium Level 143 mEQ/L (135-145) Potassium Level 3.9 mEQ/L (3.4-4.9) Chloride Level 105 mEQ/L (98-107) Carbon Dioxide Level 22 mEQ/L (20-30) Anion Gap 16 (5-15) H Blood Urea Nitrogen 14 mg/dL (7-23) Creatinine 1.7 mg/dL (0.7-1.2) H Estimat Glomerular Filtration Rate 52.2 mL/min (>60) Glucose Level 98 mg/dL (74-106) Calcium Level 9.2 mg/dL (8.6-10.2) Objective HEAD AND NECK: Shows no JVD. LUNGS: Clear. CARDIOVASCULAR: Shows regular S1 and S2 with no gallop or murmur. ABDOMEN: Soft and nontender. EXTREMITIES: No pitting edema. JAIDEN MCRAE May 29, 2016 17:50
--- NOTE | 2016-05-29 18:34 | Cardiology Report ---
APPROVED REPORT EXAM: Two-dimensional and M-mode echocardiogram with Doppler and color Doppler. INDICATION Chest Pain M-Mode DIMENSIONS IVSd1.7 (0.7-1.1cm)Left Atrium (MM)3.5 (1.6-4.0cm) LVDd4.3 (3.5-5.6cm)Aortic Root2.9 (2.0-3.7cm) PWd1.4 (0.7-1.1cm)Aortic Cusp Exc.2.0 (1.5-2.0cm) LVDs2.4 (2.5-4.0cm) PWs1.7 cm Normal left ventricular chamber size, systolic function and wall motion. Left ventricular ejection fraction estimated to be 55-60%. Mild left ventricular hypertrophy. Anterior Echo-free space, may be due to pericardial fat or effusion. All other cardiac chamber sizes are within normal limits. Mild focal aortic valve sclerosis with adequate cusp excursion. Mildly thickened mitral valve leaflets with normal excursion. Mild mitral annulus and aortic root calcification. Pulmonic valve not well visualized. Normal tricuspid valve structure. IVC dilated at 2.3cm with physiologic collapse. A color flow and spectral Doppler study was performed and revealed: No aortic regurgitation. Trace mitral regurgitation. Mitral inflow indicate normal left ventricular diastolic function. Trace tricuspid regurgitation. Tricuspid systolic velocities suggests peak right ventricular systolic pressure of 9 mmHg. Trace pulmonic regurgitation present.
--- NOTE | 2016-05-29 19:12 | Cardiology Report ---
APPROVED REPORT EKG Measurement Heart [id number] Normal sinus rhythm Normal ECG
[2016-05-29 20:00] VITALS: BP 148/111
[2016-05-29 21:49] LABS: TROPONIN I < 0.30 ng/mL (<=0.30)
[2016-05-30] VITALS: BP 132/87
--- NOTE | 2016-05-30 00:27 | History and Physical Report ---
DATE OF ADMISSION: 05/26/2016 HISTORY OF PRESENT ILLNESS: This is a 51 years old male, came to the emergency room for chest pain and palpitation. The patient denies any fever or chills. PAST MEDICAL HISTORY: Significant for CVA, hypertension, hyperlipidemia, and neuralgia. ALLERGIES: NKA. MEDICATIONS: See the list. PHYSICAL EXAMINATION: GENERAL: This is a young male, who came to the emergency room for chest pain. He has no fever. No chills. VITAL SIGNS: Blood pressure is 130/70, pulse 74, and respirations 18. SKIN: Good skin turgor. HEENT: NAD. CHEST: Bilaterally clear. CARDIOVASCULAR: Regular rhythm. No gallop. No murmur. ABDOMEN: Soft. EXTREMITIES: No CCE. NEUROLOGICAL: Left-sided hemiparesis. ASSESSMENT: 1. Acute coronary syndrome. 2. Hypertension. 3. Hyperlipidemia. 4. Cerebrovascular accident and the patient was admitted to rule out myocardial infarction. Cardiology . Continue current medical treatment. Wan Lucas M.D. DR: DANIEL JOB#: [id number] CC:
[2016-05-30] MEDS: HYDROmorphone 1mg/ml Carpuject IVP PRN ×5 (02:07→23:41)
[2016-05-30 04:00] VITALS: BP 128/76
[2016-05-30 08:14] VITALS: BP 149/91
[2016-05-30 08:29] LABS: EOSINOPHILS % (AUTO) 7.3 % (0.0-3.0); LYMPHOCYTES % (AUTO) 26.3 % (20.0-45.0); MEAN CORPUSCULAR HEMOGLOBIN 30.2 PG (27.0-31.0); MEAN CORPUSCULAR HGB CONC 31.4 G/DL (32.0-36.0); MEAN CORPUSCULAR VOLUME 96 FL (80-99); MEAN PLATELET VOLUME 10.5 FL (6.5-10.1); NEUTROPHILS % (AUTO) 58.4 % (45.0-75.0); PLATELET COUNT 191 K/UL (150-450); RED BLOOD COUNT 4.54 M/UL (4.70-6.10); WHITE BLOOD COUNT 7.2 K/UL (4.8-10.8)
--- NOTE | 2016-05-30 08:41 | Pulmonology Progress Note ---
Assessment/Plan Assessment/Plan 1. Chest pain, rule out acute coronary syndrome. 2. History of previous tracheostomy. 3. History of previous cerebrovascular accident with left hemiparesis, partial. 4. Marijuana use. DISCUSSION: The patient is doing well from a pulmonary standpoint He is saturating well on room air. I do not suspect infectious process or need for acute pulmonary intervention. 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 Cardiac workup noted Subjective Interval Events: Ruled out for CO; echo noted; feelsOK Constitutional: Reports: no symptoms HEENT: Repors: no symptoms Respiratory: Reports: no symptoms Cardiovascular: Reports: no symptoms Gastrointestinal/Abdominal: Reports: no symptoms Genitourinary: Reports: no symptoms Allergies: Coded Allergies: KETOROLAC (Unverified Adverse Reaction, Intermediate, n/v, 05/18/14) Uncoded Allergies: TORODOL (Allergy, Unknown, 02/25/16) Objective Last 24 Hour Vital Signs Date Time Temp Pulse Resp B/P Pulse Ox O2 Delivery O2 Flow Rate FiO2 05/30/16 08:14 97.9 77 18 149/91 99 Room Air 05/30/16 04:20 56 05/30/16 04:00 97.7 59 20 128/76 98 Room Air 05/30/16 02:37 98.2 05/30/16 00:00 98.2 74 20 132/87 98 Room Air 05/29/16 23:44 68 05/29/16 20:00 98.8 66 15 148/111 95 Room Air 05/29/16 20:00 64 05/29/16 18:59 68 148/99 05/29/16 17:01 150/71 05/29/16 16:00 64 05/29/16 16:00 98.2 68 14 150/71 98 Room Air 05/29/16 14:15 97.2 05/29/16 12:00 97.2 66 17 148/80 95 Room Air 2.0 05/29/16 12:00 68 05/29/16 09:22 131/85 Intake and Output 05/29/16 05/30/16 19:00 07:00 Intake Total 420 ml 240 ml Balance 420 ml 240 ml Intake Oral 420 ml 240 ml # Voids 3 4 General Appearance: no acute distress HEENT: normocephalic Respiratory/Chest: chest wall non-tender, lungs clear Cardiovascular: normal peripheral pulses, normal rate Abdomen: normal bowel sounds, soft, non tender Laboratory Tests 05/29/16 11:55: Troponin I < 0.30 05/29/16 20:05: Troponin I < 0.30 05/30/16 07:05: White Blood Count 7.2, Red Blood Count 4.54L, Hemoglobin 13.7L, Hematocrit 43.7 , Mean Corpuscular Volume 96, Mean Corpuscular Hemoglobin 30.2, Mean Corpuscular Hemoglobin Concent 31.4L, Red Cell Distribution Width 14.0, Platelet Count 191, Mean Platelet Volume 10.5H, Neutrophils (%) (Auto) 58.4, Lymphocytes (%) (Auto) 26.3, Monocytes (%) (Auto) 7.0, Eosinophils (%) (Auto) 7.3H, Basophils (%) (Auto) 1.0, Sodium Level [Pending], Potassium Level [Pending ], Chloride Level [Pending], Carbon Dioxide Level [Pending], Blood Urea Nitrogen [Pending], Creatinine [Pending], Estimat Glomerular Filtration Rate [ Pending], Glucose Level [Pending], Calcium Level [Pending] Current Medications Medications (Trade) Dose Ordered Sig/Mahsa Route PRN Reason Start Time Stop Time Status Last Admin Dose Admin Amlodipine Besylate (Norvasc) 5 mg DAILY ORAL 05/29/16 18:00 06/28/16 17:59 05/29/16 18:59 Aspirin (ASA) 325 mg DAILY ORAL 05/27/16 09:00 06/26/16 08:59 05/29/16 09:21 Dextrose (Dextrose 50%) STAT PRN IV Hypoglycemia 05/26/16 20:30 06/25/16 20:29 Gabapentin (Neurontin) 100 mg THREE TIMES A DAY ORAL 05/27/16 09:00 06/26/16 08:59 05/29/16 17:01 Hydromorphone HCl (Dilaudid) 1 mg Q6H PRN IVP Severe Pain (Pain Scale 7-10) 05/26/16 20:45 06/02/16 20:44 05/30/16 02:07 Lisinopril (Prinivil) 20 mg BID ORAL 05/27/16 09:00 06/26/16 08:59 05/29/16 17:01 Naproxen (Naprosyn) 500 mg TIDPRN PRN ORAL Mild Pain (Pain Scale 1-3) 05/26/16 20:45 06/25/16 20:44 05/27/16 21:11 Pantoprazole (Protonix) 40 mg DAILY ORAL 05/27/16 09:00 06/26/16 08:59 05/29/16 09:20 Tramadol HCl (Ultram) 50 mg Q6H PRN ORAL Moderate Pain (Pain Scale 4-6) 05/26/16 20:45 06/02/16 20:44 05/28/16 16:26 Saud Ellis MD May 30, 2016 08:41
[2016-05-30 08:53] LABS: CALCIUM 9.6 mg/dL (8.6-10.2); CREATININE 1.7 mg/dL (0.7-1.2); GLOMERULAR FILTRATION RATE 52.2 mL/min (>60); POTASSIUM 4.2 mEQ/L (3.4-4.9)
[2016-05-30] MEDS: Lisinopril 20mg tab ORAL SCH ×2 (09:33→18:01)
[2016-05-30 12:48] VITALS: BP 135/110
--- NOTE | 2016-05-30 15:18 | Cardiac Electrophysiology PN ---
Assessment/Plan Assessment/Plan 1. Chest pain. The patient was ruled out for myocardial infarction. Echocardiogram showed EF 55-60%.Nuclear stress test showed no ischemia. 2. Orthostatic syncope. 3. Renal insufficiency.Creatinine 1.7 unchanged despite Lisinopril 20 bid. 4. Hypertension better with Norvasc 5 mg daily and Lisinopril 20 bid. 5. Back pain. ASHLEY RN OK to DC from cardiac standpoint. Subjective Subjective Had adenosine Cardiolite yesterday that showed no ischemia. No chest pain. BP better. No chest pain or SOB. Objective Last 24 Hour Vital Signs Date Time Temp Pulse Resp B/P Pulse Ox O2 Delivery O2 Flow Rate FiO2 05/30/16 14:26 97.5 05/30/16 12:48 97.5 77 18 135/110 99 Room Air 05/30/16 09:51 97.9 05/30/16 09:33 149/91 05/30/16 09:20 77 149/91 05/30/16 08:14 97.9 77 18 149/91 99 Room Air 05/30/16 07:50 72 05/30/16 04:20 56 05/30/16 04:00 97.7 59 20 128/76 98 Room Air 05/30/16 00:00 98.2 74 20 132/87 98 Room Air 05/29/16 23:44 68 05/29/16 20:00 98.8 66 15 148/111 95 Room Air 05/29/16 20:00 64 05/29/16 18:59 68 148/99 05/29/16 17:01 150/71 05/29/16 16:00 64 05/29/16 16:00 98.2 68 14 150/71 98 Room Air Intake and Output 05/29/16 05/30/16 19:00 07:00 Intake Total 420 ml 240 ml Balance 420 ml 240 ml Intake Oral 420 ml 240 ml # Voids 3 4 Laboratory Tests Test 05/29/16 20:05 05/30/16 07:05 Troponin I < 0.30 ng/mL (<=0.30) White Blood Count 7.2 K/UL (4.8-10.8) Red Blood Count 4.54 M/UL (4.70-6.10) L Hemoglobin 13.7 G/DL (14.2-18.0) L Hematocrit 43.7 % (42.0-52.0) Mean Corpuscular Volume 96 FL (80-99) Mean Corpuscular Hemoglobin 30.2 PG (27.0-31.0) Mean Corpuscular Hemoglobin Concent 31.4 G/DL (32.0-36.0) L Red Cell Distribution Width 14.0 % (11.6-14.8) Platelet Count 191 K/UL (150-450) Mean Platelet Volume 10.5 FL (6.5-10.1) H Neutrophils (%) (Auto) 58.4 % (45.0-75.0) Lymphocytes (%) (Auto) 26.3 % (20.0-45.0) Monocytes (%) (Auto) 7.0 % (1.0-10.0) Eosinophils (%) (Auto) 7.3 % (0.0-3.0) H Basophils (%) (Auto) 1.0 % (0.0-2.0) Sodium Level 143 mEQ/L (135-145) Potassium Level 4.2 mEQ/L (3.4-4.9) Chloride Level 101 mEQ/L (98-107) Carbon Dioxide Level 28 mEQ/L (20-30) Anion Gap 14 (5-15) Blood Urea Nitrogen 13 mg/dL (7-23) Creatinine 1.7 mg/dL (0.7-1.2) H Estimat Glomerular Filtration Rate 52.2 mL/min (>60) Glucose Level 95 mg/dL (74-106) Calcium Level 9.6 mg/dL (8.6-10.2) Objective HEAD AND NECK: Shows no JVD. LUNGS: Clear. CARDIOVASCULAR: Shows regular S1 and S2 with no gallop or murmur. ABDOMEN: Soft and nontender. EXTREMITIES: No pitting edema. JAIDEN MCRAE May 30, 2016 15:18
[2016-05-30 16:00] VITALS: BP 161/95
[2016-05-30] MEDS ORDERED: HYDROmorphone 1mg/ml Carpuject IVP PRN (17:00)
[2016-05-30 20:00] VITALS: BP 156/105
--- NOTE | 2016-05-30 23:00 | Nephrology Progress Note ---
Assessment/Plan Problem List: (1) HTN (hypertension) (2) Chest pain (3) ACS (acute coronary syndrome) (4) Syncope (5) Renal insufficiency Plan f/u stress test results. f/u cardio rec. d/c plan for am if ok with cardio, Subjective Subjective no sob/cp. pending stress test. Objective Objective Last 24 Hour Vital Signs Date Time Temp Pulse Resp B/P Pulse Ox O2 Delivery O2 Flow Rate FiO2 05/30/16 20:00 97.8 67 21 156/105 98 Room Air 05/30/16 20:00 67 05/30/16 18:01 161/95 05/30/16 16:00 97.7 63 20 161/95 99 Room Air 05/30/16 16:00 68 05/30/16 15:30 97.5 05/30/16 14:26 97.5 05/30/16 12:48 97.5 77 18 135/110 99 Room Air 05/30/16 09:51 97.9 05/30/16 09:33 149/91 05/30/16 09:20 77 149/91 05/30/16 08:14 97.9 77 18 149/91 99 Room Air 05/30/16 07:50 72 05/30/16 04:20 56 05/30/16 04:00 97.7 59 20 128/76 98 Room Air 05/30/16 00:00 98.2 74 20 132/87 98 Room Air 05/29/16 23:44 68 Intake and Output 05/29/16 05/30/16 19:00 07:00 Intake Total 420 ml 240 ml Balance 420 ml 240 ml Intake Oral 420 ml 240 ml # Voids 3 4 Laboratory Tests 05/30/16 07:05: White Blood Count 7.2, Red Blood Count 4.54L, Hemoglobin 13.7L, Hematocrit 43.7 , Mean Corpuscular Volume 96, Mean Corpuscular Hemoglobin 30.2, Mean Corpuscular Hemoglobin Concent 31.4L, Red Cell Distribution Width 14.0, Platelet Count 191, Mean Platelet Volume 10.5H, Neutrophils (%) (Auto) 58.4, Lymphocytes (%) (Auto) 26.3, Monocytes (%) (Auto) 7.0, Eosinophils (%) (Auto) 7.3H, Basophils (%) (Auto) 1.0, Sodium Level 143, Potassium Level 4.2, Chloride Level 101, Carbon Dioxide Level 28, Anion Gap 14, Blood Urea Nitrogen 13, Creatinine 1.7H, Estimat Glomerular Filtration Rate 52.2, Glucose Level 95, Calcium Level 9.6 Height (Feet): 5 Height (Inches): 6.00 Weight (Pounds): 182 General Appearance: no apparent distress Cardiovascular: normal rate, regular rhythm Respiratory/Chest: lungs clear Abdomen: non tender, soft OPAL ELLIS May 30, 2016 23:00
[2016-05-31 00:28] VITALS: BP 137/86
[2016-05-31] MEDS: HYDROmorphone 1mg/ml Carpuject IVP PRN ×3 (03:48→11:48)
[2016-05-31 04:31] VITALS: BP 135/85
--- NOTE | 2016-05-31 08:17 | Nephrology Progress Note ---
Assessment/Plan Problem List: (1) Back complaints (2) back (3) Fall (4) Renal failure (ARF), acute on chronic (5) Syncope (6) ACS (acute coronary syndrome) (7) Chest pain (8) HTN (hypertension) Assessment Discussed with Dr Pruett Plan Pain management Cardio and pulmo f/u - will f/u with recs Stable lytes Monitor creatinine Monitor BP DC plan - home Subjective Constitutional: Denies: chills, diaphoresis, fever, malaise, no symptoms, other , weakness HEENT: Denies: blurred vision, double vision, ear discharge, ear pain, eye pain , mouth pain, mouth swelling, no symptoms, nose congestion, nose pain, other, tearing, throat pain, throat swelling Genitourinary: Denies: burning, discharge, flank pain, frequency, hematuria, incontinence, no symptoms, other, pain, urgency Neurologic/Psychiatric: Denies: anxiety, depressed, emotional problems, headache, no symptoms, numbness, other, paresthesia, pre-existing deficit, seizure, tingling, tremors, weakness Subjective In bed, in no distress Objective Objective Last 24 Hour Vital Signs Date Time Temp Pulse Resp B/P Pulse Ox O2 Delivery O2 Flow Rate FiO2 05/31/16 04:31 98.0 66 20 135/85 98 Room Air 05/31/16 04:00 55 05/31/16 00:28 98.0 56 20 137/86 99 Room Air 05/31/16 00:00 62 05/30/16 20:00 97.8 67 21 156/105 98 Room Air 05/30/16 20:00 67 05/30/16 18:01 161/95 05/30/16 16:00 97.7 63 20 161/95 99 Room Air 05/30/16 16:00 68 05/30/16 15:30 97.5 05/30/16 14:26 97.5 05/30/16 12:48 97.5 77 18 135/110 99 Room Air 05/30/16 09:51 97.9 05/30/16 09:33 149/91 05/30/16 09:20 77 149/91 Intake and Output 05/30/16 05/31/16 19:00 07:00 Intake Total 240 ml 300 ml Output Total 700 ml 1100 ml Balance -460 ml -800 ml Intake Oral 240 ml 300 ml Output Urine Total 700 ml 1100 ml # Voids 2 # Bowel Movements 2 Height (Feet): 5 Height (Inches): 6.00 Weight (Pounds): 182 General Appearance: no apparent distress, alert EENT: normal ENT inspection Neck: normal alignment Cardiovascular: normal rate, regular rhythm, no JVD Respiratory/Chest: lungs clear, normal breath sounds Extremities: non-tender, normal inspection Neurologic: alert, oriented x 3, responsive, normal mood/affect Soraya Cardenas N.P. May 31, 2016 08:16
[2016-05-31 08:31] VITALS: BP 145/97
[2016-05-31] MEDS: Lisinopril 20mg tab ORAL SCH (09:10)
--- NOTE | 2016-05-31 09:31 | Pulmonology Progress Note ---
Assessment/Plan Assessment/Plan 1. Chest pain, rule out acute coronary syndrome. 2. History of previous tracheostomy. 3. History of previous cerebrovascular accident with left hemiparesis, partial. 4. Marijuana use. DISCUSSION: The patient is doing well from a pulmonary standpoint He is saturating well on room air. I do not suspect infectious process or need for acute pulmonary intervention. I will follow as tray packer. Cardiac workup noted Subjective Interval Events: No new events Constitutional: Reports: no symptoms HEENT: Repors: no symptoms Respiratory: Reports: no symptoms Allergies: Coded Allergies: KETOROLAC (Unverified Adverse Reaction, Intermediate, n/v, 05/18/14) Uncoded Allergies: TORODOL (Allergy, Unknown, 02/25/16) Objective Last 24 Hour Vital Signs Date Time Temp Pulse Resp B/P Pulse Ox O2 Delivery O2 Flow Rate FiO2 05/31/16 09:10 70 145/97 05/31/16 09:10 145/97 05/31/16 08:31 97.7 70 18 145/97 97 Room Air 05/31/16 08:00 66 05/31/16 04:31 98.0 66 20 135/85 98 Room Air 05/31/16 04:00 55 05/31/16 00:28 98.0 56 20 137/86 99 Room Air 05/31/16 00:00 62 05/30/16 20:00 97.8 67 21 156/105 98 Room Air 05/30/16 20:00 67 05/30/16 18:01 161/95 05/30/16 16:00 97.7 63 20 161/95 99 Room Air 05/30/16 16:00 68 05/30/16 15:30 97.5 05/30/16 14:26 97.5 05/30/16 12:48 97.5 77 18 135/110 99 Room Air 05/30/16 09:51 97.9 05/30/16 09:33 149/91 Intake and Output 05/30/16 05/31/16 19:00 07:00 Intake Total 240 ml 300 ml Output Total 700 ml 1100 ml Balance -460 ml -800 ml Intake Oral 240 ml 300 ml Output Urine Total 700 ml 1100 ml # Voids 2 # Bowel Movements 2 General Appearance: WD/WN HEENT: normocephalic Respiratory/Chest: chest wall non-tender, lungs clear Cardiovascular: normal peripheral pulses, normal rate Abdomen: normal bowel sounds, soft, non tender Current Medications Medications (Trade) Dose Ordered Sig/Mahsa Route PRN Reason Start Time Stop Time Status Last Admin Dose Admin Amlodipine Besylate (Norvasc) 5 mg DAILY ORAL 05/29/16 18:00 06/28/16 17:59 05/31/16 09:10 Aspirin (ASA) 325 mg DAILY ORAL 05/27/16 09:00 06/26/16 08:59 05/31/16 09:09 Dextrose (Dextrose 50%) STAT PRN IV Hypoglycemia 05/26/16 20:30 06/25/16 20:29 Gabapentin (Neurontin) 100 mg THREE TIMES A DAY ORAL 05/27/16 09:00 06/26/16 08:59 05/31/16 09:09 Hydromorphone HCl (Dilaudid) 1 mg Q4H PRN IVP Severe Pain (Pain Scale 7-10) 05/30/16 13:45 06/06/16 13:44 05/31/16 07:49 Lisinopril (Prinivil) 20 mg BID ORAL 05/27/16 09:00 06/26/16 08:59 05/31/16 09:10 Naproxen (Naprosyn) 500 mg TIDPRN PRN ORAL Mild Pain (Pain Scale 1-3) 05/26/16 20:45 06/25/16 20:44 05/27/16 21:11 Pantoprazole (Protonix) 40 mg DAILY ORAL 05/27/16 09:00 06/26/16 08:59 05/31/16 09:09 Tramadol HCl (Ultram) 50 mg Q6H PRN ORAL Moderate Pain (Pain Scale 4-6) 05/26/16 20:45 06/02/16 20:44 05/28/16 16:26 Saud Ellis MD May 31, 2016 09:31
[2016-05-31] MEDS ORDERED: NORCO 5-325 TA1 EAC1 ORAL (09:43)
[2016-05-31] MEDS ORDERED: NORCO 5-325 TA1 EACH ORAL (09:44)
[2016-05-31 11:51] VITALS: BP 145/106
--- NOTE | 2016-05-31 13:47 | Diagnostic Imaging Report ---
Indication: chest pain Technique: The study was conducted under the supervision of a sheather. Adenosine infusion followed by intravenous administration of 31.8 mCi of technetium 99m Myoview was performed. Three plane SPECT imaging of the heart was then performed. A resting study was performed as part of the one-day protocol with 11.1 mCi of technetium 99m myoview injected intravenously at that time. Three plane SPECT imaging of the heart was obtained. Comparison: None Clinical data: 1. Clinical response: Non ischemic 2. Electrocardiographic response: Non ischemic Findings: The myocardial perfusion scan demonstrates a questionable fixed inferolateral perfusion defect. A small myocardial infarct may be present. Please correlate clinically. No reversible perfusion defects are identified. LVEF is estimated at 69%. Impression: Questionable small inferolateral infarct. No evidence of myocardial ischemia. Please correlate clinically.
--- NOTE | 2016-06-01 12:33 | Diagnostic Imaging Report ---
APPROVED REPORT CPT Code: 11374 Present Symptoms Comments: R/O DVT BILATERAL: Imaging reveals a patent deep venous system bilaterally. There is no evidence of thrombus within the femoral, popliteal or tibial segments. The greater saphenous veins are also within normal limits. Doppler indicates normal spontaneous flow within these segments.
--- NOTE | 2016-06-01 20:32 | Discharge Summary ---
Discharge Summary Hospital Course Date of Admission May 26, 2016 at 14:35 Date of Discharge May 31, 2016 at 13:00 Admitting Diagnosis Syncope/ACS HPI Eloy Hoffmann is a 51 year old male who was admitted on May 26, 2016 at 14:35 for Syncope, Acute Coronary Syndrome Hospital Course [id number] Discharge Discharge Disposition Patient was discharged to Home (01) Discharge Diagnoses: Lucrecia Du NP Jun 01, 2016 20:32
--- NOTE | 2016-06-02 03:27 | Discharge Summary 2 SIG ---
DATE OF ADMISSION: 05/26/2016 DATE OF DISCHARGE: 05/31/2016 CONSULTANTS: 1. Saud Ellis M.D. 2. Dani Gould M.D. BRIEF HOSPITAL COURSE: The patient is a 51-year-old male who presented to emergency department for complaints of chest pain that woke him up at night. The pain was described to be sharp, midsternal, and 10/10 with shortness of breath, worse with movement. He has history of heart disease. On evaluation at ED, chest x-ray showed no acute process. Blood pressure was elevated to 179/102 and due to the patient's risk factors, the patient was admitted for cardiac monitoring. Troponin was negative. Dr. Gould was consulted. Echocardiogram done showed left ventricular ejection fraction of 55% to 60% with mild left ventricular hypertrophy. Blood pressure was treated with Norvasc and lisinopril. He underwent a nuclear stress test. Results were nonischemic. He presented with acute on chronic renal failure. Electrolytes have been stable. The patient was eventually discharged home. FINAL DIAGNOSES: 1. Acute on chronic renal failure. 2. Hypertension. 3. Orthostatic syncope. 4. Back pain. 5. Chest pain, myocardial infarction was ruled out. 6. Marijuana use. 7. Fall. 8. History of previous tracheostomy. 9. Old cerebrovascular accident with left hemiparesis. Armando Pruett M.D. I have been assigned to dictate discharge summary on this account and I was not involved in the patient's management. Lucrecia Du N.P. DR: JULIET JOB#: [id number] CC: MAHENDRA
== END 2016-05-31 13:00 | disposition home or self-care (01) | DRG 683 ==
LOC: ENRESERVTM → ENRESERVDT → EMR 13:16 → 2E 14:35 → EDBEDREQ 15:01
DX: N17.9 Acute kidney failure, unspecified (principal); I69.354 Hemiplegia and hemiparesis following cerebral infarction affecting left non-dominant side; I12.9 Hypertensive chronic kidney disease with stage 1 through stage 4 chronic kidney disease, or unspecified chronic kidney disease; N18.9 Chronic kidney disease, unspecified; Z86.73 Personal history of transient ischemic attack (TIA), and cerebral infarction without residual deficits; E78.5 Hyperlipidemia, unspecified; R07.9 Chest pain, unspecified; M79.2 Neuralgia and neuritis, unspecified; I95.1 Orthostatic hypotension; M54.9 Dorsalgia, unspecified; F12.90 Cannabis use, unspecified, uncomplicated; Z91.81 History of falling; Z98.1 Arthrodesis status; Z88.8 Allergy status to other drugs, medicaments and biological substances; R07.89 Other chest pain
CPT/HCPCS: 36415; 71010; 78452; 80048; 80053; 80300; 82550; 82553; 83880; 84484; 85025; 93005; 93017; 93306; 93970

== ENCOUNTER 2016-09-27 15:47 | Inpatient (IN) | payer MEDICARE, OTHER ==
[~2016-09-27] VITALS: Ht 167.6 cm; Wt 78.5 kg
--- NOTE | 2016-09-27 15:52 | Emergency Room Report ---
History of Present Illness General Chief Complaint: Chest Pain Source: Patient Present Illness HPI 51YOM BIBEMS with chest pain since 9am when he woke up. 7 hours prior. Pain is constant, left sided. "Worse with any movement." Denies assoc fever/chills, sob, cough, abd pain, nausea/vomiting. Patient states "I had a heart attack last week." States he had angioplasty but didnt have stents placed. Not on Plavix or ASA currently. Only on BP med but doesnt know name. Told me to "check in your computer." Denies ETOH, smoking, drugs. Endorses 2X previous CVA with left sided weakness. EMS rhythm strip showed no ischemia. No ST depressions or elevation. NSR Was given ASA and 3x nitro spray with no improvement in pain Per EMR - multiple visits here for same complaint May 2016 EF was 55-60% Nuclear stress test negative for ischemia Since 2014, multiple troponins. Only one slightly positive 0.70 troponin 01/04 but was in setting of JONATHAN on known CKD Spoke to day care home mother at [facility] Patient admitted 09/18 to ICU for "acute VT". Troponin 0.04 then 0.33. Documented ECGs x2 from ED physician showed "normal sinus rhythm, no ischemia." Medical records faxed from [facility]: 4x ECG show isolated TWI in Leads [address] chest was negative. Cardiac cath: CAD - left coronary: sclerosis in distal left main with maximal 30% distal left main stenosis, sclerosis in LAD - right coronary: diffuse sclerosis in mid portion; high degree stenosis in distal portion Recommendation was for medical conservatory therapy No stents were placed Allergies: Coded Allergies: KETOROLAC (Unverified Adverse Reaction, Intermediate, n/v, 05/18/14) Uncoded Allergies: TORODOL (Allergy, Unknown, 02/25/16) Patient History Past Medical History: HTN Past Surgical History: none Pertinent Family History: none Social History: Denies: alcohol use, drug use, smoking Immunizations: UTD Reviewed Nursing Documentation: PMH: Agreed, PSxH: Agreed Nursing Documentation-PMH Past Medical History: No History, Except For Hx Hypertension: Yes Hx Cerebrovascular Accident: Yes - 2016 left side weakness Review of Systems All Other Systems: negative except mentioned in HPI Physical Exam Vital Signs Date Time Temp Pulse Resp B/P Pulse Ox O2 Delivery O2 Flow Rate FiO2 09/27/16 15:41 92 16 147/89 98 Room Air Sp02 EP Interpretation: reviewed, normal General Appearance: normal inspection, well appearing, no apparent distress, alert, GCS 15, non-toxic Head: normocephalic, atraumatic Eyes: bilateral eye EOMI, bilateral eye PERRL ENT: normal ENT inspection, hearing grossly normal, normal voice Neck: normal inspection, full range of motion, supple, no bony tend Respiratory: normal inspection, lungs clear, normal breath sounds, no respiratory distress, no retraction, no accessory muscle use, no wheezing, speaking full sentences, other - Chest pain hyper-reproducible on exam, chest symmetrical Cardiovascular #1: regular rate, rhythm, no edema Gastrointestinal: normal inspection, normal bowel sounds, non tender, soft, no guarding, no hernia Genitourinary: no CVA tenderness Musculoskeletal: normal inspection, back normal, normal range of motion, Carlyle' s Sign negative Neurologic: normal inspection, alert, oriented x3, responsive, undercollar maker III-XII nml as tested, motor strength/tone normal, speech normal Psychiatric: normal inspection, judgement/insight normal, mood/affect normal Skin: normal inspection, normal color, no rash Lymphatic: normal inspection Medical Decision Making Diagnostic Impression: Primary Impression: Chest pain Qualified Codes: R07.89 - Other chest pain ER Course 51YOM with chest pain for 9 hours VSS. Afebrile. - ECG shows same isolated TWI in 3 and AVF that were seen on 4x ECG at [facility] - Troponin 0 here. - CXR no PTX, PNA - Continued pain - was given nitro in the ED. - Patient states he was DCed from [facility] without any Rx. - Given high degree stenosis of distal RCA and need for nitro to relieve pain in ED, warrants tele admission - Endorsed to Dr Lucas at 545pm for tele admit. EKG Diagnostic Results Rate: normal, other - TWI in 3 and AVF Rhythm: NSR ST Segments: no acute changes ASA given to the pt in ED: No Rhythm Strip Diag. Results EP Interpretation: yes Rate: 67 Rhythm: NSR, no PVC's, no ectopy Chest X-Ray Diagnostic Results EP Interpretation: Yes Findings: no consolidation, no effusion, no pneumothorax, no acute cardiopulmonary disease Number of Views: 1 Last Vital Signs Date Time Temp Pulse Resp B/P Pulse Ox O2 Delivery O2 Flow Rate FiO2 09/27/16 15:41 92 16 147/89 98 Room Air Status: improved Disposition: ADMITTED INPATIENT Condition: Serious RODRÍGUEZ BENITEZ M.D. September 27, 2016 15:52
[2016-09-27 16:33] LABS: BASOPHILS % (AUTO) 1.5 % (0.0-2.0); EOSINOPHILS % (AUTO) 4.9 % (0.0-3.0); LYMPHOCYTES % (AUTO) 21.1 % (20.0-45.0); MEAN CORPUSCULAR HEMOGLOBIN 32.7 PG (27.0-31.0); MEAN CORPUSCULAR HGB CONC 35.2 G/DL (32.0-36.0); MEAN CORPUSCULAR VOLUME 93 FL (80-99); MEAN PLATELET VOLUME 8.8 FL (6.5-10.1); MONOCYTES % (AUTO) 6.3 % (1.0-10.0); NEUTROPHILS % (AUTO) 66.2 % (45.0-75.0); PLATELET COUNT 177 K/UL (150-450); RED BLOOD COUNT 4.31 M/UL (4.70-6.10); RED CELL DISTRIBUTION WIDTH 12.6 % (11.6-14.8); WHITE BLOOD COUNT 8.2 K/UL (4.8-10.8)
--- NOTE | 2016-09-27 16:45 | Diagnostic Imaging Report ---
Indication: Chest Pain Comparison: 05/26/16 A single view chest radiograph was obtained. Findings: Cardiomediastinal appearance is within normal limits for age. Pulmonary vascularity is appropriate. The diaphragmatic contour is smooth and costophrenic angles are sharp. No pleural effusions are identified. The bones are unremarkable. Cervical fusion plate noted and partially seen on this study. Impression: No acute findings
[2016-09-27 16:48] LABS: TROPONIN I < 0.30 ng/mL (<=0.30)
[2016-09-27 16:51] LABS: ALBUMIN/GLOBULIN RATIO 1.7 (1.0-2.7); CALCIUM 9.5 mg/dL (8.6-10.2); CREATININE 1.7 mg/dL (0.7-1.2); GLOMERULAR FILTRATION RATE 52.2 mL/min (>60); POTASSIUM 4.1 mEQ/L (3.4-4.9); TOTAL PROTEIN 6.7 g/dL (6.6-8.7)
[2016-09-27 17:01] LABS: CKMB 1.5 ng/mL (< 6.7)
[2016-09-27] MEDS ORDERED: fentaNYL 100 mcg/2 mL IV ONE (17:15)
[2016-09-27 17:27] VITALS: BP_SYST 139; BP_DIAS 101; BP_DIAS 97
[2016-09-27] MEDS: Nitroglycerin Subl 0.4mg tab (Bottle Of 25) SL PRN ×2 (18:04→18:13)
[2016-09-27 18:20] VITALS: BP 135/78
[2016-09-27] MEDS ORDERED: LIPITOR80 MG ORAL (19:15)
[2016-09-27] MEDS ORDERED: ASPIRIN EC81 MG ORAL (19:15)
[2016-09-27] MEDS ORDERED: CYMBALTA60 MG ORAL (19:16)
[2016-09-27] MEDS ORDERED: AMITRIPTYLINE25 MG ORAL (19:17)
[2016-09-27 19:46] VITALS: BP 134/85
[2016-09-27 20:50] VITALS: BP 127/69
[2016-09-27 21:11] VITALS: BP 149/94
[2016-09-27] MEDS ORDERED: CATAPRES0.1 MG ORAL (21:22)
[2016-09-27] MEDS ORDERED: ALLOPURINOL100 M1 ORAL (21:30)
[2016-09-27] MEDS ORDERED: Morphine Sulfate 2mg/ml Inj IM PRN (22:15)
[2016-09-27] MEDS ORDERED: Norco 10mg/325mg tab ORAL PRN (22:15)
[2016-09-28] VITALS: BP 122/85
[2016-09-28] MEDS: Morphine Sulfate 2mg/ml Inj IV PRN ×5 (02:47→19:39)
[2016-09-28 04:00] VITALS: BP 132/77
[2016-09-28] MEDS: Heparin 5000 units/ml inj SUBQ SCH ×3 (05:55→21:13)
[2016-09-28 08:00] VITALS: BP 142/98
[2016-09-28 08:36] LABS: BASOPHILS % (AUTO) 1.1 % (0.0-2.0); EOSINOPHILS % (AUTO) 6.1 % (0.0-3.0); LYMPHOCYTES % (AUTO) 21.3 % (20.0-45.0); MEAN CORPUSCULAR HGB CONC 32.1 G/DL (32.0-36.0); MEAN CORPUSCULAR VOLUME 94 FL (80-99); MEAN PLATELET VOLUME 9.6 FL (6.5-10.1); MONOCYTES % (AUTO) 7.8 % (1.0-10.0); NEUTROPHILS % (AUTO) 63.7 % (45.0-75.0); PLATELET COUNT 194 K/UL (150-450); RED BLOOD COUNT 4.91 M/UL (4.70-6.10); WHITE BLOOD COUNT 7.5 K/UL (4.8-10.8)
[2016-09-28 08:46] LABS: TROPONIN I < 0.30 ng/mL (<=0.30)
[2016-09-28 08:54] LABS: ANION GAP 16 (5-15); CALCIUM 9.5 mg/dL (8.6-10.2); CARBON DIOXIDE 25 mEQ/L (20-30); CHLORIDE 99 mEQ/L (98-107); CHOLESTEROL 206 mg/dL (< 200); CHOLESTEROL/HDL RATIO 4.8 (3.3-4.4); CREATININE 1.4 mg/dL (0.7-1.2); GLOMERULAR FILTRATION RATE > 60 mL/min (>60); HEMOLYSIS 3; LDL CHOLESTEROL (CALC.) 136 mg/dL (60-99); MAGNESIUM 1.7 mg/dL (1.7-2.5); PHOSPHORUS 3.8 mg/dL (2.5-4.8); POTASSIUM 3.8 mEQ/L (3.4-4.9); SODIUM 140 mEQ/L (135-145)
[2016-09-28] MEDS: Lisinopril 20mg tab ORAL SCH (08:54)
[2016-09-28] MEDS: Allopurinol 100mg Tab ORAL SCH (08:55)
[2016-09-28 12:00] VITALS: BP 142/94
[2016-09-28 16:00] VITALS: BP 141/76
[2016-09-28 20:00] VITALS: BP 122/77
[2016-09-28] MEDS: Zolpidem 5mg tab ORAL PRN (21:53)
[2016-09-28] MEDS: HYDROmorphone 1mg/ml Carpuject IVP PRN (23:41)
--- NOTE | 2016-09-28 23:48 | Consultation ---
DATE OF CONSULTATION: 09/28/2016 PULMONARY CONSULTATION HISTORY OF PRESENT ILLNESS: This is a 51-year-old male who came to the hospital with chest pain. This occurred yesterday. It was worse with movement and left sided. He denied any fevers, cough, or chills. The patient states he has had a previous myocardial infarction and also states he had angioplasty, but does not recall having a stent placed. The patient presently is not on antiplatelet agent. PAST MEDICAL HISTORY: Notable for previous CVA, history of CAD, history of cardiac events including myocardial infarction, and status past angioplasty. Per ER physician's note, the patient's last coronary catheterization done at [facility] has shown nonobstructive CAD with hig-grade stenosis in distal portion. ALLERGIES: To Toradol. SOCIAL HISTORY: He denies alcohol or tobacco use. REVIEW OF SYSTEMS: Denies any headaches, hematemesis, melena, or hematochezia. PHYSICAL EXAMINATION: GENERAL: Reveals a 51-year-old male. VITAL SIGNS: Blood pressure 140/80, heart rate 84, respirations 18, and afebrile. HEENT: Unremarkable. LUNGS: Breath sounds clear bilaterally. ABDOMEN: soft. EXTREMITIES: There is no edema. DIAGNOSTIC DATA: EKG shows inverted T-waves in lead III and aVF, unchanged from previous. X-ray of the chest is negative. IMPRESSION: 1. Atypical chest pain. 2. History of right coronary artery occlusive disease. DISCUSSION: I suspect the pain is either the musculoskeletal or cardiac origin. I do not suspect a pulmonary reason for his chest pain. We will follow as needed. Saud Ellis M.D. DR: ADELFO JOB#: [id number] CC:
[2016-09-29] VITALS: BP 130/76
[2016-09-29] MEDS: HYDROmorphone 1mg/ml Carpuject IVP PRN ×5 (03:51→22:28)
[2016-09-29 04:10] VITALS: BP 116/78
[2016-09-29] MEDS: Heparin 5000 units/ml inj SUBQ SCH ×3 (05:50→21:02)
[2016-09-29 08:11] VITALS: BP 120/69
[2016-09-29] MEDS: Allopurinol 100mg Tab ORAL SCH (08:30)
[2016-09-29] MEDS: Lisinopril 20mg tab ORAL SCH (08:31)
[2016-09-29 11:37] VITALS: BP 124/89
--- NOTE | 2016-09-29 14:14 | History and Physical ---
History of Present Illness General Reason for Hospitalization: Chest Pain Present Illness HPI The patient is a 51-year-old male with a PMHx significant for HTN, AR, s/p CARDIAC CATH, who presented to the hospital with chest pain which started the day of admission. He stated that he was recently admitted to [facility] for chest pain and had a cardiac cath. Pain is worse with movement and is left sided. He denied any fevers, cough, or chills, no N/V, no abdominal pain. Allergies: Coded Allergies: KETOROLAC (Unverified Adverse Reaction, Intermediate, n/v, 05/18/14) Uncoded Allergies: TORODOL (Allergy, Unknown, 02/25/16) Medication History Scheduled Allopurinol* (Allopurinol*), 100 MG ORAL DAILY, (Reported) Amlodipine Besylate* (Amlodipine Besylate*), 2.5 MG ORAL DAILY, (Reported) Gabapentin* (Gabapentin*), 800 MG ORAL THREE TIMES A DAY, (Reported) Lisinopril/Hydrochlorothiazide 20-12.5 Mg Tab (Lisinopril-Hctz 20-12.5 Mg Tab), 1 TAB ORAL DAILY, (Reported) Omeprazole (Omeprazole), 20 MG PO DAILY, (Reported) Scheduled PRN Clonidine Hcl* (Catapres*), 0.1 MG ORAL DAILY PRN for For High Blood Pressure, ( Reported) Discontinued Medications Amitriptyline HCl (Amitriptyline HCl), 1 GM MC, (Reported) Discontinued Reason: Medication dose changed Amitriptyline HCl (Elavil*), 25 MG ORAL DAILY, (Reported) Discontinued Reason: Pt stopped taking med Aspirin Ec* (Aspirin Ec*), 81 MG ORAL DAILY, (Reported) Discontinued Reason: MD discontinued med Atorvastatin (Lipitor), 80 MG ORAL BID, (Reported) Discontinued Reason: Pt stopped taking med Clonidine Hcl (Clonidine Hcl), 0.1 MG PO DAILY, (Reported) Discontinued Reason: Medication dose changed Duloxetine Hcl* (Cymbalta*), 60 MG ORAL DAILY, (Reported) Discontinued Reason: Pt stopped taking med Hydrocodone Bit/Acetaminophen 5-325* ([place] 5-325*), 1 TAB ORAL THREE TIMES A DAY PRN for For Pain, (Reported) Discontinued Reason: discontinued med Methocarbamol* (Robaxin*), 500 MG PO QID, (Reported) Discontinued Reason: MD discontinued med Naproxen* (Naproxen*), 500 MG ORAL TID, (Reported) Discontinued Reason: MD discontinued med Pregabalin* (Lyrica*), 75 MG ORAL THREE TIMES A DAY, (Reported) Discontinued Reason: MD discontinued med Tramadol Hcl* (Ultram*), 50 MG ORAL Q6H PRN for For Pain Discontinued Reason: MD discontinued med Patient History History Provided By: Patient Healthcare decision maker pt A&Ox4 Resuscitation status Full Code Advanced Directive on File Past Medical/Surgical History Past Medical/Surgical History: (1) Hypertension (2) History of cerebellar stroke (3) Degenerative disc disease, cervical (4) Back pain (5) NSTEMI (non-ST elevated myocardial infarction) (6) Chronic pain (7) old R MCA ischemic stroke (8) Head ache (9) Chest wall pain (10) ACS (acute coronary syndrome) Social History Social History: (1) Does not smoke (2) No illicit drug use (3) No history of alcohol use Review of Systems All Other Systems: negative except mentioned in HPI Physical Exam General Appearance: no apparent distress, alert Lines, tubes and drains: peripheral HEENT: atraumatic Neck: normal alignment, supple Respiratory/Chest: lungs clear, normal breath sounds, no respiratory distress Cardiovascular/Chest: normal rate, regular rhythm, no JVD Abdomen: soft, no organomegaly, no mass Extremities: non-tender, normal inspection, no calf tenderness Skin Exam: normal pigmentation, warm/dry Neurologic: alert, oriented x 3, responsive, normal mood/affect Last 24 Hour Vital Signs Date Time Temp Pulse Resp B/P Pulse Ox O2 Delivery O2 Flow Rate FiO2 09/29/16 11:37 97.3 74 18 124/89 97 Room Air 09/29/16 08:31 120/69 09/29/16 08:31 70 120/69 09/29/16 08:11 97.0 70 18 120/69 96 Room Air 09/29/16 08:00 74 09/29/16 04:10 97.7 66 20 116/78 98 Room Air 09/29/16 04:00 72 09/29/16 00:00 97.0 67 20 130/76 100 Room Air 09/29/16 00:00 72 09/28/16 20:00 77 09/28/16 20:00 98.1 76 20 122/77 96 Room Air 09/28/16 16:00 96.0 64 18 141/76 96 Room Air 09/28/16 16:00 61 Intake and Output 09/28/16 09/29/16 19:00 07:00 Output Total 1600 ml Balance -1600 ml Output Urine Total 1600 ml # Voids 2 Height (Feet): 5 Height (Inches): 6.00 Weight (Pounds): 173 Medications Current Medications Medications (Trade) Dose Ordered Sig/Mahsa Route PRN Reason Start Time Stop Time Status Last Admin Dose Admin Acetaminophen/ Hydrocodone Bitart ([place] 10/325) 1 ea Q4H PRN ORAL Moderate Pain (Pain Scale 4-6) 09/27/16 22:15 10/04/16 22:14 Allopurinol (Zyloprim) 100 mg DAILY ORAL 09/28/16 09:00 10/28/16 08:59 09/29/16 08:30 Amlodipine Besylate (Norvasc) 2.5 mg DAILY ORAL 09/28/16 09:00 10/28/16 08:59 09/29/16 08:31 Clonidine HCl (Catapres) 0.1 mg Q6HR PRN ORAL For High Blood Pressure 09/27/16 22:15 10/27/16 22:14 Gabapentin (Neurontin) 800 mg THREE TIMES A DAY ORAL 09/28/16 09:00 10/28/16 08:59 09/29/16 12:45 Heparin Sodium (Porcine) (Heparin 5000 units/ml) 5,000 units EVERY 8 HOURS SUBQ 09/28/16 06:00 10/28/16 05:59 09/29/16 05:50 Hydrochlorothiazide (Hydrodiuril) 25 mg DAILY ORAL 09/28/16 09:00 10/28/16 08:59 09/29/16 08:30 Hydromorphone HCl (Dilaudid) 1 mg Q4H PRN IVP Severe Pain (Pain Scale 7-10) 09/28/16 21:45 10/05/16 21:44 09/29/16 12:45 Lisinopril (Prinivil) 20 mg DAILY ORAL 09/28/16 09:00 10/28/16 08:59 09/29/16 08:31 Nitroglycerin (Ntg) 0.4 mg Q5M PRN SL Prn Chest Pain 09/27/16 18:00 10/27/16 17:59 09/27/16 18:13 Ondansetron HCl (Zofran) 4 mg Q6H PRN IVP Nausea & Vomiting 09/27/16 22:15 10/27/16 22:14 Pantoprazole (Protonix) 40 mg DAILY ORAL 09/28/16 09:00 10/28/16 08:59 09/29/16 08:31 Zolpidem Tartrate (Ambien) 5 mg HSPRN PRN ORAL Insomnia 09/28/16 21:45 10/28/16 21:44 09/28/16 21:53 Assessment/Plan Problem List: (1) Chronic pain ICD Codes: G89.29 - Other chronic pain SNOMED: 83947953 (2) Hypertension ICD Codes: I10 - Essential (primary) hypertension SNOMED: 35460873 (3) ACS (acute coronary syndrome) ICD Codes: I24.9 - Acute ischemic heart disease, unspecified SNOMED: 114855561 (4) Chest pain ICD Codes: R07.9 - Chest pain, unspecified SNOMED: 49632879 Qualifiers: Qualified Codes: R07.89 - Other chest pain Status: stable Assessment/Plan Pain management Monitor lincoln ambriz as needed Cardiology consult Pulmo following AM labs Soraya Cardenas N.P. September 29, 2016 14:14
[2016-09-29 15:15] VITALS: BP 135/92
--- NOTE | 2016-09-29 15:28 | Pulmonology Progress Note ---
Assessment/Plan Assessment/Plan IMPRESSION: 1. Atypical chest pain. 2. History of right coronary artery occlusive disease. DISCUSSION: I suspect the pain is either the musculoskeletal or cardiac origin. I do not suspect a pulmonary reason for his chest pain. I will follow as needed. Subjective Interval Events: Continues to complain of chest pain Constitutional: Reports: no symptoms HEENT: Repors: no symptoms Respiratory: Reports: pleuritic pain Cardiovascular: Reports: no symptoms Gastrointestinal/Abdominal: Reports: no symptoms Allergies: Coded Allergies: KETOROLAC (Unverified Adverse Reaction, Intermediate, n/v, 05/18/14) Uncoded Allergies: TORODOL (Allergy, Unknown, 02/25/16) Objective Last 24 Hour Vital Signs Date Time Temp Pulse Resp B/P Pulse Ox O2 Delivery O2 Flow Rate FiO2 09/29/16 15:15 97.9 67 18 135/92 99 Room Air 09/29/16 12:00 72 09/29/16 11:37 97.3 74 18 124/89 97 Room Air 09/29/16 08:31 120/69 09/29/16 08:31 70 120/69 09/29/16 08:11 97.0 70 18 120/69 96 Room Air 09/29/16 08:00 74 09/29/16 04:10 97.7 66 20 116/78 98 Room Air 09/29/16 04:00 72 09/29/16 00:00 97.0 67 20 130/76 100 Room Air 09/29/16 00:00 72 09/28/16 20:00 77 09/28/16 20:00 98.1 76 20 122/77 96 Room Air 09/28/16 16:00 96.0 64 18 141/76 96 Room Air 09/28/16 16:00 61 Intake and Output 09/28/16 09/29/16 19:00 07:00 Output Total 1600 ml Balance -1600 ml Output Urine Total 1600 ml # Voids 2 General Appearance: no acute distress HEENT: normocephalic Respiratory/Chest: chest wall non-tender, lungs clear Cardiovascular: normal peripheral pulses, normal rate Abdomen: normal bowel sounds Microbiology Date/Time Source Procedure Growth Status 09/27/16 17:59 Nasal Nares MRSA Culture - Final NO METHICILLIN RESISTANT STAPH AUREUS... Complete Current Medications Medications (Trade) Dose Ordered Sig/Mahsa Route PRN Reason Start Time Stop Time Status Last Admin Dose Admin Acetaminophen/ Hydrocodone Bitart ([place] 10/325) 1 ea Q4H PRN ORAL Moderate Pain (Pain Scale 4-6) 09/27/16 22:15 10/04/16 22:14 Allopurinol (Zyloprim) 100 mg DAILY ORAL 09/28/16 09:00 10/28/16 08:59 09/29/16 08:30 Amlodipine Besylate (Norvasc) 2.5 mg DAILY ORAL 09/28/16 09:00 10/28/16 08:59 09/29/16 08:31 Atorvastatin Calcium (Lipitor) 20 mg BEDTIME ORAL 09/29/16 21:00 10/29/16 20:59 Clonidine HCl (Catapres) 0.1 mg Q6HR PRN ORAL For High Blood Pressure 09/27/16 22:15 10/27/16 22:14 Gabapentin (Neurontin) 800 mg THREE TIMES A DAY ORAL 09/28/16 09:00 10/28/16 08:59 09/29/16 12:45 Heparin Sodium (Porcine) (Heparin 5000 units/ml) 5,000 units EVERY 8 HOURS SUBQ 09/28/16 06:00 10/28/16 05:59 09/29/16 14:29 Hydrochlorothiazide (Hydrodiuril) 25 mg DAILY ORAL 09/28/16 09:00 10/28/16 08:59 09/29/16 08:30 Hydromorphone HCl (Dilaudid) 1 mg Q4H PRN IVP Severe Pain (Pain Scale 7-10) 09/28/16 21:45 10/05/16 21:44 09/29/16 12:45 Lisinopril (Prinivil) 20 mg DAILY ORAL 09/28/16 09:00 10/28/16 08:59 09/29/16 08:31 Nitroglycerin (Ntg) 0.4 mg Q5M PRN SL Prn Chest Pain 09/27/16 18:00 10/27/16 17:59 09/27/16 18:13 Ondansetron HCl (Zofran) 4 mg Q6H PRN IVP Nausea & Vomiting 09/27/16 22:15 10/27/16 22:14 Pantoprazole (Protonix) 40 mg DAILY ORAL 09/28/16 09:00 10/28/16 08:59 09/29/16 08:31 Zolpidem Tartrate (Ambien) 5 mg HSPRN PRN ORAL Insomnia 09/28/16 21:45 10/28/16 21:44 09/28/16 21:53 Saud Ellis MD September 29, 2016 15:28
--- NOTE | 2016-09-29 16:37 | Cardiac Electrophysiology PN ---
Subjective Subjective [id number] Objective Last 24 Hour Vital Signs Date Time Temp Pulse Resp B/P Pulse Ox O2 Delivery O2 Flow Rate FiO2 09/29/16 15:15 97.9 67 18 135/92 99 Room Air 09/29/16 12:00 72 09/29/16 11:37 97.3 74 18 124/89 97 Room Air 09/29/16 08:31 120/69 09/29/16 08:31 70 120/69 09/29/16 08:11 97.0 70 18 120/69 96 Room Air 09/29/16 08:00 74 09/29/16 04:10 97.7 66 20 116/78 98 Room Air 09/29/16 04:00 72 09/29/16 00:00 97.0 67 20 130/76 100 Room Air 09/29/16 00:00 72 09/28/16 20:00 77 09/28/16 20:00 98.1 76 20 122/77 96 Room Air Intake and Output 09/28/16 09/29/16 19:00 07:00 Output Total 1600 ml Balance -1600 ml Output Urine Total 1600 ml # Voids 2 Microbiology Date/Time Source Procedure Growth Status 09/27/16 17:59 Nasal Nares MRSA Culture - Final NO METHICILLIN RESISTANT STAPH AUREUS... Complete JAIDEN MCRAE September 29, 2016 16:37
--- NOTE | 2016-09-29 18:32 | Internal Med Progress Note ---
Subjective Physician Name Bharath Marquez Attending Physician Armando Pruett Current Medications Medications (Trade) Dose Ordered Sig/Mahsa Route PRN Reason Start Time Stop Time Status Last Admin Dose Admin Acetaminophen/ Hydrocodone Bitart (Wendel 10/325) 1 ea Q4H PRN ORAL Moderate Pain (Pain Scale 4-6) 09/27/16 22:15 10/04/16 22:14 Allopurinol (Zyloprim) 100 mg DAILY ORAL 09/28/16 09:00 10/28/16 08:59 09/29/16 08:30 Amlodipine Besylate (Norvasc) 2.5 mg DAILY ORAL 09/28/16 09:00 10/28/16 08:59 09/29/16 08:31 Atorvastatin Calcium (Lipitor) 20 mg BEDTIME ORAL 09/29/16 21:00 10/29/16 20:59 Clonidine HCl (Catapres) 0.1 mg Q6HR PRN ORAL For High Blood Pressure 09/27/16 22:15 10/27/16 22:14 Gabapentin (Neurontin) 800 mg THREE TIMES A DAY ORAL 09/28/16 09:00 10/28/16 08:59 09/29/16 17:01 Heparin Sodium (Porcine) (Heparin 5000 units/ml) 5,000 units EVERY 8 HOURS SUBQ 09/28/16 06:00 10/28/16 05:59 09/29/16 14:29 Hydrochlorothiazide (Hydrodiuril) 25 mg DAILY ORAL 09/28/16 09:00 10/28/16 08:59 09/29/16 08:30 Hydromorphone HCl (Dilaudid) 1 mg Q4H PRN IVP Severe Pain (Pain Scale 7-10) 09/28/16 21:45 10/05/16 21:44 09/29/16 17:02 Lisinopril (Prinivil) 20 mg DAILY ORAL 09/28/16 09:00 10/28/16 08:59 09/29/16 08:31 Nitroglycerin (Ntg) 0.4 mg Q5M PRN SL Prn Chest Pain 09/27/16 18:00 10/27/16 17:59 09/27/16 18:13 Ondansetron HCl (Zofran) 4 mg Q6H PRN IVP Nausea & Vomiting 09/27/16 22:15 10/27/16 22:14 Pantoprazole (Protonix) 40 mg DAILY ORAL 09/28/16 09:00 10/28/16 08:59 09/29/16 08:31 Zolpidem Tartrate (Ambien) 5 mg HSPRN PRN ORAL Insomnia 09/28/16 21:45 10/28/16 21:44 09/28/16 21:53 Allergies: Coded Allergies: KETOROLAC (Unverified Adverse Reaction, Intermediate, n/v, 05/18/14) Uncoded Allergies: TORODOL (Allergy, Unknown, 02/25/16) Subjective awake, alert, responsive, mild SOB, Chest wall pain Objective Last Vital Signs Date Time Temp Pulse Resp B/P Pulse Ox O2 Delivery O2 Flow Rate FiO2 09/29/16 16:00 70 09/29/16 15:15 97.9 18 135/92 99 Room Air 09/28/16 13:22 21 Microbiology Date/Time Source Procedure Growth Status 09/27/16 17:59 Nasal Nares MRSA Culture - Final NO METHICILLIN RESISTANT STAPH AUREUS... Complete Intake and Output 09/28/16 09/29/16 19:00 07:00 Output Total 1600 ml Balance -1600 ml Output Urine Total 1600 ml # Voids 2 Objective General: No acute distress, awake and alert HEENT: NCAT, sclera anicteric, PERRL, EOMI. Neck: Supple, no significant jugular venous distention, Lungs: fair inspiratory effort, no accessory muscle use, clear to auscultation bilaterally, no Wheeze or Rales. Heart: Regular rate and rhythm, normal S1/S2, no murmurs Abdomen: soft, nontender, nondistended. Normoactive bowel sounds. / Rectal: Refused and deferred. Extremities: No Cyanosis , clubbing or edema. 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 Gould recommendation, Monitor Labs full code Heparin SQ Bharath Marquez MD September 29, 2016 18:32
--- NOTE | 2016-09-29 19:36 | Nephrology Progress Note ---
Assessment/Plan Problem List: (1) HTN (hypertension) (2) Chest pain (3) ACS (acute coronary syndrome) Plan Pain management Monitor lytes, correct as needed Cardiology consult Pulmo following AM labs Subjective Constitutional: Denies: chills, diaphoresis, fever, malaise, no symptoms, other , weakness HEENT: Denies: blurred vision, double vision, ear discharge, ear pain, eye pain , mouth pain, mouth swelling, no symptoms, nose congestion, nose pain, other, tearing, throat pain, throat swelling Genitourinary: Denies: burning, discharge, flank pain, frequency, hematuria, incontinence, no symptoms, other, pain, urgency Neurologic/Psychiatric: Denies: anxiety, depressed, emotional problems, headache, no symptoms, numbness, other, paresthesia, pre-existing deficit, seizure, tingling, tremors, weakness Subjective late entry for 09/28/16 Objective Objective Last 24 Hour Vital Signs Date Time Temp Pulse Resp B/P Pulse Ox O2 Delivery O2 Flow Rate FiO2 09/29/16 16:00 70 09/29/16 15:15 97.9 67 18 135/92 99 Room Air 09/29/16 12:00 72 09/29/16 11:37 97.3 74 18 124/89 97 Room Air 09/29/16 08:31 120/69 09/29/16 08:31 70 120/69 09/29/16 08:11 97.0 70 18 120/69 96 Room Air 09/29/16 08:00 74 09/29/16 04:10 97.7 66 20 116/78 98 Room Air 09/29/16 04:00 72 09/29/16 00:00 97.0 67 20 130/76 100 Room Air 09/29/16 00:00 72 09/28/16 20:00 77 09/28/16 20:00 98.1 76 20 122/77 96 Room Air Intake and Output 09/28/16 09/29/16 19:00 07:00 Output Total 1600 ml Balance -1600 ml Output Urine Total 1600 ml # Voids 2 Height (Feet): 5 Height (Inches): 6.00 Weight (Pounds): 173 General Appearance: no apparent distress, alert EENT: normal ENT inspection Neck: non-tender, normal alignment Cardiovascular: normal rate, regular rhythm, no JVD Respiratory/Chest: lungs clear, normal breath sounds, no respiratory distress Abdomen: non tender, soft, no organomegaly Extremities: non-tender Neurologic: alert, oriented x 3, responsive, normal mood/affect OPAL ELLIS September 29, 2016 19:36
[2016-09-29 20:30] VITALS: BP 125/75
[2016-09-29] MEDS: Zolpidem 5mg tab ORAL PRN (20:47)
[2016-09-29] MEDS ORDERED: Atorvastatin 20mg tab ORAL SCH (21:00)
[2016-09-29] MEDS ORDERED: HYDROmorphone 1mg/NS 50ml IVPB 50 ML IVPB PRN (21:15)
[2016-09-30 00:31] VITALS: BP 143/93
--- NOTE | 2016-09-30 02:32 | Consultation ---
DATE OF CONSULTATION: 09/29/2016 CARDIOLOGY CONSULTATION REFERRING PHYSICIAN: Armando Pruett M.D. REASON FOR CONSULTATION: Chest pain. HISTORY OF PRESENT ILLNESS: The patient is a 51-year-old gentleman who has a history of hypertension and chronic kidney disease, who was just recently admitted to [facility] with chest pain. The patient had a cardiac catheterization on 09/21/2016 by that showed no critical coronary artery disease. The patient had only 30% distal left main as well as very small right coronary artery. The patient was discharged home. He presented to the [facility] complaining of chest pain again and the patient was admitted and a Cardiology consultation was obtained for evaluation. REVIEW OF SYSTEM: Performed and was negative other what was mentioned in history of present illness. PAST MEDICAL HISTORY: 1. Hypertension. 2. History of chronic kidney disease. 3. History of cerebellar stroke. 4. Old right middle cerebral artery stroke. FAMILY HISTORY: Noncontributory. SOCIAL HISTORY: He is . MEDICATIONS: Per reconciliation note. PHYSICAL EXAMINATION: VITAL SIGNS: Show blood pressure of 132/95, pulse 60, respirations 18, and temperature 97.9 degrees. HEAD AND NECK: Showed no JVD. LUNGS: Clear. CARDIOVASCULAR: Shows regular S1 and S2 with no gallop or murmur. ABDOMEN: Soft. EXTREMITIES: No pitting edema. LABORATORY DATA: Showed white count of 7.5, hemoglobin 14.2, hematocrit 46.1, and platelets of 194,000. Sodium 140, potassium 3.8, BUN 12, creatinine 1.4, and glucose of 86. Troponin is negative x2. ASSESSMENT AND PLAN: 1. Atypical chest pain. The patient was ruled out for myocardial infarction again. The patient's cardiac catheterization a week ago, no significant coronary artery disease. The patient underwent echocardiogram at [facility]. At this time, the patient also showed no evidence of pericardial effusion ejection fraction of 55%. His EKG is also completely normal. 2. History of chronic kidney disease. Creatinine has come down to 1.4. 3. Hyperlipidemia on Lipitor. 4. Hypertension on Norvasc 20 mg daily and lisinopril 20 mg daily. He is also on hydrochlorothiazide 25 mg daily and management of Dr. Pruett on p.r.n. clonidine. 5. The patient had history of prior stroke on Neurontin. Thank you very much, Dr. Pruett, for allowing me to participate in the care of this patient. Please do not hesitate to contact me with any questions regarding my evaluation. Dani Gould M.D. DR: VANITA JOB#: [id number] CC:
[2016-09-30 04:16] VITALS: BP 128/70
[2016-09-30] MEDS: HYDROmorphone 1mg/ml Carpuject IVP PRN (06:33)
[2016-09-30] MEDS: Heparin 5000 units/ml inj SUBQ SCH (06:34)
[2016-09-30 07:53] LABS: BASOPHILS % (AUTO) 1.9 % (0.0-2.0); LYMPHOCYTES % (AUTO) 18.9 % (20.0-45.0); MEAN CORPUSCULAR HEMOGLOBIN 29.8 PG (27.0-31.0); MEAN CORPUSCULAR HGB CONC 31.7 G/DL (32.0-36.0); MEAN CORPUSCULAR VOLUME 94 FL (80-99); MEAN PLATELET VOLUME 9.4 FL (6.5-10.1); MONOCYTES % (AUTO) 8.2 % (1.0-10.0); PLATELET COUNT 211 K/UL (150-450); RED BLOOD COUNT 5.18 M/UL (4.70-6.10); RED CELL DISTRIBUTION WIDTH 13.2 % (11.6-14.8); WHITE BLOOD COUNT 8.6 K/UL (4.8-10.8)
[2016-09-30 08:00] VITALS: BP 124/84
[2016-09-30 08:08] LABS: CALCIUM 9.8 mg/dL (8.6-10.2); CREATININE 1.6 mg/dL (0.7-1.2); POTASSIUM 3.9 mEQ/L (3.4-4.9)
[2016-09-30 08:18] LABS: MAGNESIUM 1.9 mg/dL (1.7-2.5)
[2016-09-30] MEDS: Allopurinol 100mg Tab ORAL SCH (09:18)
[2016-09-30 09:19] VITALS: BP 124/84
[2016-09-30] MEDS: Lisinopril 20mg tab ORAL SCH (09:19)
--- NOTE | 2016-09-30 09:59 | Pulmonology Progress Note ---
Assessment/Plan Assessment/Plan IMPRESSION: 1. Atypical chest pain. 2. History of right coronary artery occlusive disease. DISCUSSION: I suspect the pain is either the musculoskeletal or cardiac origin. I do not suspect a pulmonary reason for his chest pain. I will follow as needed. Subjective Interval Events: None; seen by cardiology Constitutional: Reports: no symptoms HEENT: Repors: no symptoms Respiratory: Reports: pleuritic pain Cardiovascular: Reports: no symptoms Gastrointestinal/Abdominal: Reports: no symptoms Genitourinary: Reports: no symptoms Neurologic: Reports: no symptoms Allergies: Coded Allergies: KETOROLAC (Unverified Adverse Reaction, Intermediate, n/v, 05/18/14) Uncoded Allergies: TORODOL (Allergy, Unknown, 02/25/16) Objective Last 24 Hour Vital Signs Date Time Temp Pulse Resp B/P Pulse Ox O2 Delivery O2 Flow Rate FiO2 09/30/16 09:19 124/84 09/30/16 09:19 63 124/84 09/30/16 08:00 97.9 63 18 124/84 94 Room Air 09/30/16 04:26 80 09/30/16 04:16 98.7 86 21 128/70 95 Room Air 09/30/16 02:14 70 09/30/16 00:31 98.6 75 20 143/93 94 Room Air 09/29/16 22:29 76 09/29/16 20:30 98.5 67 20 125/75 98 Room Air 09/29/16 16:00 70 09/29/16 15:15 97.9 67 18 135/92 99 Room Air 09/29/16 12:00 72 09/29/16 11:37 97.3 74 18 124/89 97 Room Air Intake and Output 09/29/16 09/30/16 19:00 07:00 Intake Total 360 ml Output Total 350 ml 700 ml Balance 10 ml -700 ml Intake Oral 360 ml Output Urine Total 350 ml 700 ml # Voids 2 General Appearance: no acute distress HEENT: normocephalic Respiratory/Chest: chest wall non-tender Cardiovascular: normal peripheral pulses, normal rate Abdomen: normal bowel sounds Microbiology Date/Time Source Procedure Growth Status 09/27/16 17:59 Nasal Nares MRSA Culture - Final NO METHICILLIN RESISTANT STAPH AUREUS... Complete 09/27/16 17:59 Rectum VRE Culture - Final NO VANCOMYCIN RESISTANT ENTEROCOCCUS ... Complete Laboratory Tests 09/30/16 07:27: White Blood Count 8.6, Red Blood Count 5.18, Hemoglobin 15.4, Hematocrit 48.6, Mean Corpuscular Volume 94, Mean Corpuscular Hemoglobin 29.8, Mean Corpuscular Hemoglobin Concent 31.7L, Red Cell Distribution Width 13.2, Platelet Count 211, Mean Platelet Volume 9.4, Neutrophils (%) (Auto) 65.0, Lymphocytes (%) (Auto) 18.9L, Monocytes (%) (Auto) 8.2, Eosinophils (%) (Auto) 6.0H, Basophils (%) ( Auto) 1.9, Sodium Level 137, Potassium Level 3.9, Chloride Level 95L, Carbon Dioxide Level 23, Anion Gap 19H, Blood Urea Nitrogen 18, Creatinine 1.6H, Estimat Glomerular Filtration Rate 56.0, Glucose Level 112H, Calcium Level 9.8, Phosphorus Level 5.0H, Magnesium Level 1.9 Current Medications Medications (Trade) Dose Ordered Sig/Mahsa Route PRN Reason Start Time Stop Time Status Last Admin Dose Admin Acetaminophen/ Hydrocodone Bitart (Campbell 10/325) 1 ea Q4H PRN ORAL Moderate Pain (Pain Scale 4-6) 09/27/16 22:15 10/04/16 22:14 09/29/16 20:48 Allopurinol (Zyloprim) 100 mg DAILY ORAL 09/28/16 09:00 10/28/16 08:59 09/30/16 09:18 Amlodipine Besylate (Norvasc) 2.5 mg DAILY ORAL 09/28/16 09:00 10/28/16 08:59 09/30/16 09:19 Atorvastatin Calcium (Lipitor) 20 mg BEDTIME ORAL 09/29/16 21:00 10/29/16 20:59 09/29/16 20:48 Clonidine HCl (Catapres) 0.1 mg Q6HR PRN ORAL For High Blood Pressure 09/27/16 22:15 10/27/16 22:14 Gabapentin (Neurontin) 800 mg THREE TIMES A DAY ORAL 09/28/16 09:00 10/28/16 08:59 09/30/16 09:18 Heparin Sodium (Porcine) (Heparin 5000 units/ml) 5,000 units EVERY 8 HOURS SUBQ 09/28/16 06:00 10/28/16 05:59 09/30/16 06:34 Hydrochlorothiazide (Hydrodiuril) 25 mg DAILY ORAL 09/28/16 09:00 10/28/16 08:59 09/30/16 09:19 Hydromorphone HCl (Dilaudid) 1 mg Q4H PRN IVP SEVERE PAIN 09/29/16 22:00 10/06/16 21:59 09/30/16 06:33 Lisinopril (Prinivil) 20 mg DAILY ORAL 09/28/16 09:00 10/28/16 08:59 09/30/16 09:19 Nitroglycerin (Ntg) 0.4 mg Q5M PRN SL Prn Chest Pain 09/27/16 18:00 10/27/16 17:59 09/27/16 18:13 Ondansetron HCl (Zofran) 4 mg Q6H PRN IVP Nausea & Vomiting 09/27/16 22:15 10/27/16 22:14 Pantoprazole (Protonix) 40 mg DAILY ORAL 09/28/16 09:00 10/28/16 08:59 09/30/16 09:18 Zolpidem Tartrate (Ambien) 5 mg HSPRN PRN ORAL Insomnia 09/28/16 21:45 10/28/16 21:44 09/29/16 20:47 Saud Ellis MD September 30, 2016 09:59
[2016-10-03] MEDS ORDERED: ASPIRIN EC81 MG ORAL (09:59)
[2016-10-03] MEDS ORDERED: LIPITOR20 MG ORAL (09:59)
--- NOTE | 2016-10-03 10:00 | Discharge Summary ---
Discharge Summary Hospital Course Date of Admission September 27, 2016 at 18:06 Date of Discharge September 30, 2016 at 11:05 Admitting Diagnosis Acute Coronary Syndrome/Chest Pain HPI Eloy Hoffmann is a 51 year old male who was admitted on September 27, 2016 at 18:06 for Acute Coronary Syndrome,Chest Pain Hospital Course dc summary#[id number] Discharge Medications New Medications: Aspirin Ec* (Aspirin Ec*) 81 Mg Tablet. 81 MG ORAL DAILY, #30 TAB Atorvastatin Calcium* (Lipitor*) 20 Mg Tablet 20 MG ORAL BEDTIME, #30 TAB Continued Medications: Allopurinol* (Allopurinol*) 100 Mg Tablet 100 MG ORAL DAILY, TAB Amlodipine Besylate* (Amlodipine Besylate*) 2.5 Mg Tablet 2.5 MG ORAL DAILY, TAB Clonidine Hcl* (Catapres*) 0.1 Mg Tablet 0.1 MG ORAL DAILY PRN for For High Blood Pressure, TAB Gabapentin* (Gabapentin*) 100 Mg Capsule 800 MG ORAL THREE TIMES A DAY, CAP Lisinopril/Hydrochlorothiazide 20-12.5 Mg Tab (Lisinopril-Hctz 20-12.5 Mg Tab) 1 Each Tablet 1 TAB ORAL DAILY for 30 Days Omeprazole (Omeprazole) 20 Mg Capsule. 20 MG PO DAILY for 30 Days Discharge Condition Upon Discharge: stable Discharge Disposition Patient was discharged to Home (01) Discharge Diagnoses: Discharge Instructions Discharge Instructions Special Instructions I have been assigned to complete a D/C Summary on this account. I was not involved in the patient management Padmaja Wolff NP ([place]te[place]) October 03, 2016 10:00
== END 2016-09-30 11:05 | disposition home or self-care (01) | DRG 313 ==
LOC: EDBD 15:47 → EMR 16:08 → 2E 18:06 → EDBEDREQ 20:29
DX: R07.89 Other chest pain (principal); I25.2 Old myocardial infarction; I69.954 Hemiplegia and hemiparesis following unspecified cerebrovascular disease affecting left non-dominant side; I12.9 Hypertensive chronic kidney disease with stage 1 through stage 4 chronic kidney disease, or unspecified chronic kidney disease; I25.119 Atherosclerotic heart disease of native coronary artery with unspecified angina pectoris; N18.2 Chronic kidney disease, stage 2 (mild); E78.5 Hyperlipidemia, unspecified; Z88.6 Allergy status to analgesic agent; Z88.8 Allergy status to other drugs, medicaments and biological substances; M50.30 Other cervical disc degeneration, unspecified cervical region; G89.29 Other chronic pain; I25.10 Atherosclerotic heart disease of native coronary artery without angina pectoris; Z98.61 Coronary angioplasty status; R51 Headache
CPT/HCPCS: 36415; 71010; 80048; 80053; 80061; 80300; 82550; 82553; 83735; 84100; 84484; 85025; 87081; 93005; 93306; 94664

== ENCOUNTER 2017-06-16 16:57 | Emergency (ER) | payer MEDICARE, OTHER ==
[~2017-06-16] VITALS: Ht 167.6 cm; Wt 80.7 kg
[~2017-06-16 16:57] MED LIST changes: +ALLOPURINOL100 M1 ORAL; +ASPIRIN EC81 MG ORAL; +CATAPRES0.1 MG ORAL; +CYMBALTA60 MG ORAL; +LIPITOR20 MG ORAL; +LIPITOR80 MG ORAL
--- NOTE | 2017-06-16 17:10 | Emergency Room Report ---
History of Present Illness General Chief Complaint: Chest Pain Source: Patient, Medical Record Present Illness HPI 52YOM walk-in with chest pain since 9am when he woke up. 8 hours prior. Pain is constant, right and left upper chest. Worse with movement. Denies assoc fever /chills, sob, cough, abd pain, nausea/vomiting. Patient stated he fell down 4x stairs with the chest pain and caught himself with left hand/wrist, c/o pain to left wrist. Denies pain to forearm, shoulder , upper arm. Didnt hit head. Not on Plavix or ASA currently "because my doctor told me not to take because of previous 'brain bleed.' Similar story to last september in ED when patient was here. Denies ETOH, smoking, drugs. Endorses 2X previous CVA with left sided weakness. Per EMR - multiple visits here for same complaint May 2016 EF was 55-60% September 2016 EF was also 55% Nuclear stress test negative for ischemia Since 2014, multiple troponins done Only one slightly positive 0.70 troponin but was in setting of JONATHAN on known CKD September 2016 admission: also ruled out for ACS, thought to have atypical chest pain Medical records faxed from [facility]: 4x ECG show isolated TWI in Leads [address] chest was negative. Cardiac cath: CAD - left coronary: sclerosis in distal left main with maximal 30% distal left main stenosis, sclerosis in LAD - right coronary: diffuse sclerosis in mid portion; high degree stenosis in distal portion Recommendation was for medical conservatory therapy No stents were placed at that time Hypertension on Norvasc 20 mg daily and lisinopril 20 mg daily. He is also on hydrochlorothiazide 25 mg daily and management of Dr. Pruett on p.r.n. clonidine. Allergies: Coded Allergies: KETOROLAC (Unverified Adverse Reaction, Intermediate, n/v, 05/18/14) Uncoded Allergies: TORODOL (Allergy, Unknown, 02/25/16) Patient History Past Medical History: CAD, other - See HPI Past Surgical History: none Pertinent Family History: none Social History: Denies: smoking, alcohol use, drug use Immunizations: UTD Reviewed Nursing Documentation: PMH: Agreed, PSxH: Agreed Nursing Documentation-PMH Hx Cardiac Problems: Yes Hx Hypertension: Yes Hx Cancer: No Hx Gastrointestinal Problems: Yes Hx Neurological Problems: Yes - 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) , Neuralgia & neuritis Hx Cerebrovascular Accident: Yes - CVA w/ Lt side weaknedss Hx Neurologic Surgery: Yes - Craniotomy at [facility]/ Intracranial hemorrage Review of Systems All Other Systems: negative except mentioned in HPI Physical Exam Vital Signs Date Time Temp Pulse Resp B/P (MAP) Pulse Ox O2 Delivery O2 Flow Rate FiO2 06/16/17 17:02 97.9 74 18 204/115 100 Room Air Sp02 EP Interpretation: reviewed, normal General Appearance: normal inspection, well appearing, no apparent distress, alert, GCS 15, non-toxic Head: normocephalic, atraumatic Eyes: bilateral eye PERRL, bilateral eye EOMI ENT: normal ENT inspection, hearing grossly normal, normal pharynx, no angioedema, normal voice, TMs + canals normal, uvula midline, moist mucus membranes Neck: normal inspection, full range of motion, supple, thyroid normal, no meningismus, no bony tend Respiratory: normal inspection, lungs clear, normal breath sounds, no rhonchi, no respiratory distress, no retraction, no accessory muscle use, no wheezing, speaking full sentences Cardiovascular #1: regular rate, rhythm, no edema, no JVD, normal capillary refill Gastrointestinal: normal inspection, normal bowel sounds, non tender, soft, no mass, no peritonitis, non-distended, no guarding, no hernia, no pulsatile mass Genitourinary: no CVA tenderness Musculoskeletal: normal inspection, back normal, normal range of motion, no calf tenderness, pelvis stable, Carlyle's Sign negative, other - Left wrist: minimal ttp. No obvious deformity or reduced ROM Neurologic: normal inspection, alert, oriented x3, responsive, neurology epilepsy physician III-XII nml as tested, motor strength/tone normal, cerebellar normal, normal gait, speech normal Psychiatric: normal inspection, judgement/insight normal, mood/affect normal, no suicidal/homicidal ideation, no delusions Skin: normal inspection, normal color, no rash Lymphatic: normal inspection, no adenopathy Procedures Splinting Splinting : Consent: Verbal Pre-Made Type: velcro Splint: wrist Pre-Proc Neuro Vasc Exam: normal Post-Proc Neuro Vasc Exam: normal Patient Tolerated: Well Complications: None Medical Decision Making Diagnostic Impression: Primary Impression: Chest pain Qualified Codes: R07.9 - Chest pain, unspecified Additional Impressions: Left wrist pain Fall Qualified Codes: W19.XXXA - Unspecified fall, initial encounter CKD (chronic kidney disease) Qualified Codes: N18.9 - Chronic kidney disease, unspecified HTN (hypertension) Qualified Codes: I10 - Essential (primary) hypertension ER Course 204/115 to 162/100 after SL nitro Unlikely HTN emergency given trop WNL and serumCr at baseline Chest pain: Relieved with multiple SL nitro. Trop WNL. Unlikely ACS given 9 hours+ of symptom onset Left wrist: no fx or dislocation on Xray on ED review. Still with pain so splint placed for possible occult fx Analgesia provided for fall/wrist pain DC ER course: Patient has remained stable during ED stay. Disposition: Patient is to be discharged to home. Prescriptions given are tylenol with codeine Patient is instructed to follow up with their primary care doctor or watch engineer within 5 days. Strict return precautions discussed with patient such as fever, chills, worsening/severe pain, nausea, vomiting, which may indicate severe illness. Patient verbalizes understanding and agrees with plan. Please note that this Emergency Department Report was dictated using [employer] tender helper technology software, occasionally this can lead to erroneous entry secondary to interpretation by the dictation equipment EKG Diagnostic Results Rate: normal Rhythm: NSR ST Segments: no acute changes Other Impression seen again are previously noted isolated TWI in 3 and AVF ASA given to the pt in ED: No Rhythm Strip Diag. Results EP Interpretation: yes Rate: 66 Rhythm: NSR, no PVC's, no ectopy Other X-Ray Diagnostic Results Other X-Ray Diagnostic Results : X-Ray ordered: left wrist # of Views/Limited Vs Complete: 3 View Indication: Pain EP Interpretation: Yes Interpretation: no dislocation, no soft tissue swelling, no fractures Impression: No acute disease Electronically Signed by: Dr Rodríguez Benitez MD Last Vital Signs Date Time Temp Pulse Resp B/P (MAP) Pulse Ox O2 Delivery O2 Flow Rate FiO2 06/16/17 17:02 97.9 74 18 204/115 100 Room Air Status: improved Disposition: HOME, SELF-CARE RODRÍGUEZ BENITEZ M.D. Jun 16, 2017 17:10
[2017-06-16] MEDS ORDERED: Tylenol #3 tab (300mg/30mg) ORAL ONE (17:30)
[2017-06-16] MEDS: Nitroglycerin Subl 0.4mg tab SL PRN ×3 (17:36→18:09)
[2017-06-16 17:47] LABS: BASOPHILS % (AUTO) 1.3 % (0.0-2.0); EOSINOPHILS % (AUTO) 10.2 % (0.0-3.0); HEMOGLOBIN 12.9 G/DL (14.2-18.0); LYMPHOCYTES % (AUTO) 18.6 % (20.0-45.0); MEAN CORPUSCULAR VOLUME 94 FL (80-99); MONOCYTES % (AUTO) 7.4 % (1.0-10.0); NEUTROPHILS % (AUTO) 62.5 % (45.0-75.0); PLATELET COUNT 202 K/UL (150-450); RED BLOOD COUNT 4.25 M/UL (4.70-6.10); RED CELL DISTRIBUTION WIDTH 14.1 % (11.6-14.8); WHITE BLOOD COUNT 7.5 K/UL (4.8-10.8)
[2017-06-16 17:56] LABS: ANION GAP 8 mmol/L (5-15); BLOOD UREA NITROGEN 11 mg/dL (7-18); CALCIUM 8.9 MG/DL (8.5-10.1); CARBON DIOXIDE 27 MMOL/L (21-32); CHLORIDE 107 MMOL/L (98-107); CREATININE 1.8 MG/DL (0.55-1.30); POTASSIUM 3.7 MMOL/L (3.5-5.1); SODIUM 141 MMOL/L (136-145)
[2017-06-16 18:01] LABS: ALANINE AMINOTRANSFERASE 14 U/L (12-78); ALBUMIN 4.4 G/DL (3.4-5.0); ALBUMIN/GLOBULIN RATIO 1.5 (1.0-2.7); ALKALINE PHOSPHATASE 48 U/L (46-116); ASPARTATE AMINO TRANSFERASE 14 U/L (15-37); BILIRUBIN,TOTAL 0.6 MG/DL (0.2-1.0)
[2017-06-16] MEDS ORDERED: ACETAMINOPHEN-1 EAC1 ORAL (18:33)
[2017-06-16 18:49] VITALS: BP 154/92
[2017-06-16 19:00] VITALS: BP 154/92
--- NOTE | 2017-06-17 09:07 | Diagnostic Imaging Report ---
Indication: Pain Technique: XRAY Wrist Complete L Comparison: 04/24/2015 Findings: There is no acute fracture or dislocation. Anatomic alignment and joint spaces preserved. No radiopaque foreign body seen. Impression: No evidence of acute bony or articular abnormality.
--- NOTE | 2017-07-01 16:33 | Cardiology Report ---
APPROVED REPORT EKG Measurement Heart [id number] Normal sinus rhythm Normal ECG
== END 2017-06-16 19:03 | disposition home or self-care (01) ==
LOC: EMR 17:30
DX: R07.89 Other chest pain (principal); M25.532 Pain in left wrist; I12.9 Hypertensive chronic kidney disease with stage 1 through stage 4 chronic kidney disease, or unspecified chronic kidney disease; N18.9 Chronic kidney disease, unspecified; I69.354 Hemiplegia and hemiparesis following cerebral infarction affecting left non-dominant side; Z88.8 Allergy status to other drugs, medicaments and biological substances; Z88.6 Allergy status to analgesic agent; Z98.1 Arthrodesis status
CPT/HCPCS: 36415; 80053; 80307; 84484; 85025; 93005; 99284

== ENCOUNTER 2018-08-08 22:18 | Emergency (ER) | payer MEDICARE ==
[~2018-08-08] VITALS: Ht 167.6 cm; Wt 84.4 kg
[~2018-08-08 22:18] MED LIST changes: +ACETAMINOPHEN-1 EAC1 ORAL
--- NOTE | 2018-08-08 22:37 | NUR ---
ED Nurse Note: pt walked in c/o epigastric to substernal chest pain radiating to left arm and back since 3pm today.pt states he has Hx Stroke in 2010 & 2017 and has left side weakness. pt denies other sx, denies sob. pt AA&ox4, gcs=15, skin warm and dry, resp even and unlabored on RA, -n/v/d, ambulates w/ steady gait, VSS, NSR on desk sergeant, will cont monitor.
[2018-08-08 22:39] VITALS: BP 160/104
--- NOTE | 2018-08-08 23:14 | NUR ---
HAND OFF: Per RN Allie, RN received report from triage nurse, endorsed care to receiving RN, pt vss, NSR on cardiac sonographer, resp even and unlabored on RA, no sx distress at this time.
--- NOTE | 2018-08-08 23:14 | NUR ---
Note nneka in EDM - 08/09/18 at 1951 by JAMILAH ED Nurse Note: receiving HOLLY Kelley refused to get report, endorsed care, pt vss, resp even and unlabored on RA, Nsr on phototypesetting equipment monitor.
--- NOTE | 2018-08-08 23:20 | Emergency Room Report ---
History of Present Illness General Chief Complaint: Chest Pain Source: Patient Present Illness HPI Patient present with complaints of pain to the left upper chest left shoulder Feels that there was radiation to his left arm Patient also complained of pain and sharp pain to the left lower leg All starting at the same time Denies any shortness of breath or pleurisy denies any vomiting or diarrhea Denies any change with vision pain and discomfort started approximately 3:00 in the afternoon Allergies: Coded Allergies: KETOROLAC (Unverified Adverse Reaction, Intermediate, n/v, 05/18/14) Uncoded Allergies: TORODOL (Allergy, Unknown, 02/25/16) Patient History Past Medical History: see triage record Pertinent Family History: none Reviewed Nursing Documentation: PMH: Agreed; PSxH: Agreed Nursing Documentation-PMH Past Medical History: No History, Except For Hx Cardiac Problems: Yes Hx Hypertension: Yes Hx Cancer: No Hx Gastrointestinal Problems: Yes Hx Neurological Problems: Yes - 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) , Neuralgia & neuritis Hx Cerebrovascular Accident: Yes - CVA w/ Lt side weaknedss 2010,2016 Hx Neurologic Surgery: Yes - Craniotomy at [facility]/ Intracranial hemorrage Review of Systems All Other Systems: negative except mentioned in HPI Physical Exam Vital Signs Date Time Temp Pulse Resp B/P (MAP) Pulse Ox O2 Delivery O2 Flow Rate FiO2 08/08/18 22:23 97.5 95 16 159/106 95 Room Air Sp02 EP Interpretation: reviewed, normal General Appearance: well appearing, no apparent distress Head: normocephalic, atraumatic Eyes: bilateral eye PERRL, bilateral eye EOMI ENT: hearing grossly normal, normal pharynx, TMs + canals normal, uvula midline Neck: full range of motion, supple, no meningismus, no bony tend Respiratory: lungs clear, normal breath sounds, no rhonchi, no respiratory distress, no retraction, no accessory muscle use Cardiovascular #1: normal peripheral pulses, regular rate, rhythm, no edema, no gallop, no JVD, no murmur Gastrointestinal: normal bowel sounds, non tender, soft, no mass, no organomegaly, non-distended, no guarding, no hernia, no pulsatile mass, no rebound Genitourinary: no CVA tenderness Musculoskeletal: normal inspection Neurologic: oriented x3, responsive, pulmonary care nurse III-XII nml as tested, motor strength/ tone normal, sensory intact Psychiatric: mood/affect normal Skin: normal color, no rash, warm/dry, palpation normal Lymphatic: normal inspection, no adenopathy Medical Decision Making Diagnostic Impression: Primary Impression: Chest pain ER Course Patient is a fairly complex patient with multiple differential to consideration including but not limited to cardiac cardiopulmonary and vascular emergencies Patient's blood work is at baseline levels EKG does not show any acute changes CT head did not show any acute change Patient remains essentially a symptomatically throughout his stay at the time of disposition [facility] also contacted us and the patient is still under their care it was reported that the patient felt he did not have insurance coverage Therefore he was recommended to follow closely Labs Test 08/08/18 23:10 White Blood Count 9.2 K/UL (4.8-10.8) Red Blood Count 4.38 M/UL (4.70-6.10) Hemoglobin 13.1 G/DL (14.2-18.0) Hematocrit 39.9 % (42.0-52.0) Mean Corpuscular Volume 91 FL (80-99) Mean Corpuscular Hemoglobin 29.8 PG (27.0-31.0) Mean Corpuscular Hemoglobin Concent 32.7 G/DL (32.0-36.0) Red Cell Distribution Width 13.8 % (11.6-14.8) Platelet Count 208 K/UL (150-450) Mean Platelet Volume 8.1 FL (6.5-10.1) Neutrophils (%) (Auto) 59.9 % (45.0-75.0) Lymphocytes (%) (Auto) 24.8 % (20.0-45.0) Monocytes (%) (Auto) 6.5 % (1.0-10.0) Eosinophils (%) (Auto) 7.0 % (0.0-3.0) Basophils (%) (Auto) 1.8 % (0.0-2.0) Sodium Level 143 MMOL/L (136-145) Potassium Level 3.8 MMOL/L (3.5-5.1) Chloride Level 107 MMOL/L (98-107) Carbon Dioxide Level 27 MMOL/L (21-32) Anion Gap 9 mmol/L (5-15) Blood Urea Nitrogen 12 mg/dL (7-18) Creatinine 1.9 MG/DL (0.55-1.30) Estimat Glomerular Filtration Rate 45.6 mL/min (>60) Glucose Level 126 MG/DL (74-106) Calcium Level 8.5 MG/DL (8.5-10.1) Total Bilirubin 0.2 MG/DL (0.2-1.0) Aspartate Amino Transf (AST/SGOT) 15 U/L (15-37) Alanine Aminotransferase (ALT/SGPT) 22 U/L (12-78) Alkaline Phosphatase 48 U/L (46-116) Total Creatine Kinase 402 U/L (26-308) Creatine Kinase MB 2.2 NG/ML (0.0-3.6) Creatine Kinase MB Relative Index 0.5 Troponin I 0.010 ng/mL (0.000-0.056) Total Protein 7.0 G/DL (6.4-8.2) Albumin 3.8 G/DL (3.4-5.0) Globulin 3.2 g/dL Albumin/Globulin Ratio 1.2 (1.0-2.7) EKG Diagnostic Results Rate: normal Rhythm: NSR ST Segments: other - Nonspecific ST T-wave changes Rhythm Strip Diag. Results EP Interpretation: yes Rate: 66 Rhythm: NSR, no PVC's, no ectopy Chest X-Ray Diagnostic Results Chest X-Ray Diagnostic Results : Chest X-Ray Ordered: Yes # of Views/Limited/Complete: 1 View Indication: Chest Pain EP Interpretation: Yes Interpretation: no consolidation, no effusion, no pneumothorax Impression: No acute disease Electronically Signed by: Klever Krueger DO CT/MRI/US Diagnostic Results CT/MRI/US Diagnostic Results : Impression CT head no acute disease Last Vital Signs Date Time Temp Pulse Resp B/P (MAP) Pulse Ox O2 Delivery O2 Flow Rate FiO2 08/08/18 22:39 97.5 95 16 160/104 98 Room Air Status: improved Disposition: HOME, SELF-CARE Condition: Improved Additional Instructions: Patient is provided with the discharge instructions notified to follow up with primary doctor in the next 2-3 days otherwise return to the er with any worsening symptoms. Please note that this report is being documented using [employer] technology. This can lead to erroneous entry secondary to incorrect interpretation by the dictating instrument. Klever Krueger DO Aug 08, 2018 23:20
--- NOTE | 2018-08-08 23:20 | NUR ---
ED Nurse Note: RECIEVED REPORT TO RESUME CARE, PT IN BED AWAKE, ALERT AND ORIENTED X 4, PT IS ON CARDIAC MONITORING AND HERE WITH C/O CHEST AND BACK PAIN AT 9/10, PT IS CALMLY ON COMPUTER TABLET, IV LINE PLACED AND LABS DRAWN, WILL RESUME CARE ORDERED, PT REFUSED TYLENOL FOR PAIN, STATES NEEDS SOMETHING STRONGER, MD AWARE, NO NEW ORDERS GIVEN, WILL CONTINUE TO CLOSELY MONITOR.
[2018-08-08 23:32] LABS: BASOPHILS % (AUTO) 1.8 % (0.0-2.0); HEMATOCRIT 39.9 % (42.0-52.0); HEMOGLOBIN 13.1 G/DL (14.2-18.0); LYMPHOCYTES % (AUTO) 24.8 % (20.0-45.0); MEAN CORPUSCULAR VOLUME 91 FL (80-99); MONOCYTES % (AUTO) 6.5 % (1.0-10.0); NEUTROPHILS % (AUTO) 59.9 % (45.0-75.0); PLATELET COUNT 208 K/UL (150-450); RED BLOOD COUNT 4.38 M/UL (4.70-6.10); RED CELL DISTRIBUTION WIDTH 13.8 % (11.6-14.8); WHITE BLOOD COUNT 9.2 K/UL (4.8-10.8)
[2018-08-08 23:40] LABS: ANION GAP 9 mmol/L (5-15); BLOOD UREA NITROGEN 12 mg/dL (7-18); CALCIUM 8.5 MG/DL (8.5-10.1); CARBON DIOXIDE 27 MMOL/L (21-32); CHLORIDE 107 MMOL/L (98-107); CREATININE 1.9 MG/DL (0.55-1.30); POTASSIUM 3.8 MMOL/L (3.5-5.1); SODIUM 143 MMOL/L (136-145)
[2018-08-08] MEDS ORDERED: Morphine Sulfate 2mg/ml Inj(IV/IM USE ONLY) IM ONE (23:45)
[2018-08-08 23:55] LABS: ALANINE AMINOTRANSFERASE 22 U/L (12-78); ALBUMIN 3.8 G/DL (3.4-5.0); ALBUMIN/GLOBULIN RATIO 1.2 (1.0-2.7); ALKALINE PHOSPHATASE 48 U/L (46-116); ASPARTATE AMINO TRANSFERASE 15 U/L (15-37); BILIRUBIN,TOTAL 0.2 MG/DL (0.2-1.0); CKMB 2.2 NG/ML (0.0-3.6); CREATINE KINASE 402 U/L (26-308)
[2018-08-09] MEDS ORDERED: Ketorolac 30mg Inj IV PRN (00:15)
[2018-08-09] MEDS ORDERED: Albuterol/Ipratropium 3ml neb HHN PRN (00:15)
[2018-08-09] MEDS ORDERED: Enalaprilat 2.5mg/2ml Inj IV PRN (00:15)
[2018-08-09] MEDS ORDERED: Miralax 17gm pkt ORAL PRN (00:15)
[2018-08-09] MEDS ORDERED: Nitroglycerin Subl 0.4mg tab SL PRN (00:15)
[2018-08-09] MEDS ORDERED: Morphine Sulfate 2mg/ml Inj(IV/IM USE ONLY) IVP PRN (00:15)
[2018-08-09] MEDS ORDERED: dilTIAZem HCl 25mg/5ml Inj IV PRN (00:15)
[2018-08-09] MEDS ORDERED: Morphine Sulfate 4mg/ml Inj (IV USE ONLY) ONE (01:36)
[2018-08-09 01:45] VITALS: BP 141/91
[2018-08-09 02:00] VITALS: BP 160/104
--- NOTE | 2018-08-09 02:00 | NUR ---
ED Nurse Note: Pt being d/c to home, awake, alert and oriented x 4, pt is ambulatory with mild right side weakness from old cva, pt was medicated for pain with morphine, meds were effective bringing pain lev el down to 3/10, pt brother at bedside to drive and assist him, f/u info and after care instructions given to prt, armband and iv line removed without complications, nad noted.
[2018-08-09] MEDS ORDERED: Allopurinol 100mg Tab ORAL SCH (09:00)
[2018-08-09] MEDS ORDERED: Aspirin Baby 81mg ORAL SCH (09:00)
[2018-08-09] MEDS ORDERED: Heparin 5000 units/ml inj SUBQ SCH (09:00)
--- NOTE | 2018-08-09 12:24 | Diagnostic Imaging Report ---
Indications: Headache Technique: Spiral acquisitions obtained through the brain. Angled axial and coronal 5 x 5 mm slices were reconstructed. Total dose length product 1421.83 mGycm. CTDI vol(s) 70.38 mGy. Dose reduction achieved using automated exposure control Comparison: 02/25/2016 Findings: Again demonstrated is mild age-related enlargement of the ventricles and extra axial CSF spaces. Again demonstrated is an old lacunar infarct in the right basal ganglia and another in the right springer radiata, with resultant ex vacuo dilatation of the body of the right lateral ventricle. Again demonstrated is periventricular deep white matter low-attenuation which is asymmetric, greater on the right than on the left. No acute intracranial hemorrhage or edema, mass effect, nor midline shift. The remainder of the bray-white differentiation is normal. The calvarium is intact. The mastoids are clear. There is a right maxillary sinus polyp versus mucous retention cyst. Impression: Chronic and age-related changes, as described, including old lacunar infarcts. Negative for acute intracranial bleed or mass effect This agrees with the preliminary interpretation provided overnight by [facility] teleradiology service. The CT scanner at [facility] is accredited by the [employer] and the scans are performed using protocols designed to limit radiation exposure to as low as reasonably achievable to attain images of sufficient resolution adequate for diagnostic evaluation.
--- NOTE | 2018-08-09 17:57 | Diagnostic Imaging Report ---
Indication: Chest pain Technique: One view of the chest Comparison: 09/27/2016 Findings: Lungs and pleural spaces are clear. Heart size is normal Impression: No acute process
== END 2018-08-09 02:05 | disposition home or self-care (01) ==
LOC: EMR 23:15
DX: R07.9 Chest pain, unspecified (principal); M79.662 Pain in left lower leg; I69.354 Hemiplegia and hemiparesis following cerebral infarction affecting left non-dominant side; Z98.1 Arthrodesis status; Z88.8 Allergy status to other drugs, medicaments and biological substances; Z88.5 Allergy status to narcotic agent
CPT/HCPCS: 36415; 70450; 71045; 80053; 82550; 82553; 84484; 85025; 93005; 96372; 99284; J2270

== ENCOUNTER 2018-08-11 22:00 | Emergency (ER) | payer MEDICARE ==
[~2018-08-11] VITALS: Ht 167.6 cm; Wt 82.6 kg
[2018-08-11] MEDS ORDERED: LISINOPRIL5 MG ORAL (22:14)
--- NOTE | 2018-08-11 22:15 | Emergency Room Report ---
History of Present Illness General Chief Complaint: Chest Pain Source: Patient, Medical Record Present Illness HPI Patient presents back with continued chest pain reports that he was here recently I do recall seeing the patient Patient reports that the pain has been off-and-on since then Denies any vomiting denies any diarrhea denies any shortness of breath Pain is across the upper chest area at times sharp at times aching Denies any pleurisy Patient again reports that he has switched insurance and does not have [facility] Allergies: Coded Allergies: KETOROLAC (Unverified Adverse Reaction, Intermediate, n/v, 08/11/18) Uncoded Allergies: TORODOL (Allergy, Unknown, 02/25/16) Patient History Past Medical History: see triage record Pertinent Family History: none Reviewed Nursing Documentation: PMH: Agreed; PSxH: Agreed Nursing Documentation-PMH Past Medical History: No History, Except For Hx Cardiac Problems: No - HCL Hx Hypertension: Yes Hx Cancer: No Hx Gastrointestinal Problems: Yes Hx Neurological Problems: Yes - 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) , Neuralgia & neuritis Hx Cerebrovascular Accident: Yes - CVA w/ Lt side weaknedss 2010,2016 Hx Neurologic Surgery: Yes - Craniotomy at [facility] [place]/ Intracranial hemorrage Review of Systems All Other Systems: negative except mentioned in HPI Physical Exam Vital Signs Date Time Temp Pulse Resp B/P (MAP) Pulse Ox O2 Delivery O2 Flow Rate FiO2 08/11/18 22:03 98.2 83 18 193/117 97 Room Air Sp02 EP Interpretation: reviewed, normal General Appearance: well appearing, no apparent distress Head: normocephalic, atraumatic Eyes: bilateral eye PERRL, bilateral eye EOMI ENT: hearing grossly normal, normal pharynx, TMs + canals normal, uvula midline Neck: full range of motion, supple, no meningismus, no bony tend Respiratory: lungs clear, normal breath sounds, no rhonchi, no respiratory distress, no retraction, no accessory muscle use Cardiovascular #1: normal peripheral pulses, regular rate, rhythm, no edema, no gallop, no JVD, no murmur Gastrointestinal: normal bowel sounds, non tender, soft, no mass, no organomegaly, non-distended, no guarding, no hernia, no pulsatile mass, no rebound Genitourinary: no CVA tenderness Musculoskeletal: normal inspection Neurologic: oriented x3, responsive, 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 III-XII nml as tested, motor strength/ tone normal, sensory intact Psychiatric: mood/affect normal Skin: normal color, no rash, warm/dry, palpation normal Lymphatic: normal inspection, no adenopathy Medical Decision Making Diagnostic Impression: Primary Impression: ACS (acute coronary syndrome) ER Course Patient is a fairly complex patient with multiple differential to consideration including but not limited to cardiac cardiopulmonary and vascular emergencies Patient's troponin today presents back at intermediate level Patient's EKG does not show any change from previous however given the repeat presentation admission was requested by [facility] and patient transferred for continued care Labs Test 08/11/18 22:17 08/11/18 23:30 White Blood Count 9.3 K/UL (4.8-10.8) Red Blood Count 4.29 M/UL (4.70-6.10) Hemoglobin 12.8 G/DL (14.2-18.0) Hematocrit 39.5 % (42.0-52.0) Mean Corpuscular Volume 92 FL (80-99) Mean Corpuscular Hemoglobin 29.9 PG (27.0-31.0) Mean Corpuscular Hemoglobin Concent 32.5 G/DL (32.0-36.0) Red Cell Distribution Width 13.6 % (11.6-14.8) Platelet Count 205 K/UL (150-450) Mean Platelet Volume 8.0 FL (6.5-10.1) Neutrophils (%) (Auto) 64.2 % (45.0-75.0) Lymphocytes (%) (Auto) 21.7 % (20.0-45.0) Monocytes (%) (Auto) 6.0 % (1.0-10.0) Eosinophils (%) (Auto) 6.0 % (0.0-3.0) Basophils (%) (Auto) 2.0 % (0.0-2.0) Total Creatine Kinase 7397 U/L (26-308) Troponin I 0.066 ng/mL (0.000-0.056) Pro-B-Type Natriuretic Peptide 279 pg/mL (0-125) Sodium Level 142 MMOL/L (136-145) Potassium Level 3.7 MMOL/L (3.5-5.1) Chloride Level 105 MMOL/L (98-107) Carbon Dioxide Level 29 MMOL/L (21-32) Anion Gap 8 mmol/L (5-15) Blood Urea Nitrogen 10 mg/dL (7-18) Creatinine 1.8 MG/DL (0.55-1.30) Estimat Glomerular Filtration Rate 48.5 mL/min (>60) Glucose Level 99 MG/DL (74-106) Calcium Level 8.4 MG/DL (8.5-10.1) EKG Diagnostic Results Rate: normal Rhythm: NSR ST Segments: other - LVH Rhythm Strip Diag. Results EP Interpretation: yes Rate: 70 Rhythm: NSR, no PVC's, no ectopy Chest X-Ray Diagnostic Results Chest X-Ray Diagnostic Results : Chest X-Ray Ordered: Yes - this exam is from 08/08/2018 # of Views/Limited/Complete: 1 View Indication: Chest Pain EP Interpretation: Yes Interpretation: no consolidation, no effusion, no pneumothorax Impression: No acute disease - from 08/08/2018 Electronically Signed by: Klever Krueger DO Last Vital Signs Date Time Temp Pulse Resp B/P (MAP) Pulse Ox O2 Delivery O2 Flow Rate FiO2 08/11/18 22:03 98.2 83 18 193/117 97 Room Air Status: improved Disposition: XFER SHT-TRM HOSP Condition: Serious Klever Krueger DO Aug 11, 2018 22:15
[2018-08-11 22:29] VITALS: BP 161/117
[2018-08-11 22:45] LABS: HEMATOCRIT 39.5 % (42.0-52.0); HEMOGLOBIN 12.8 G/DL (14.2-18.0); LYMPHOCYTES % (AUTO) 21.7 % (20.0-45.0); MEAN CORPUSCULAR VOLUME 92 FL (80-99); NEUTROPHILS % (AUTO) 64.2 % (45.0-75.0); PLATELET COUNT 205 K/UL (150-450); RED BLOOD COUNT 4.29 M/UL (4.70-6.10); RED CELL DISTRIBUTION WIDTH 13.6 % (11.6-14.8); WHITE BLOOD COUNT 9.3 K/UL (4.8-10.8)
[2018-08-11 23:07] LABS: CREATINE KINASE 7397 U/L (26-308)
[2018-08-11] MEDS ORDERED: Nitroglycerin 2% oint pkt TOPIC ONE (23:30)
[2018-08-11 23:55] VITALS: BP 190/119
[2018-08-12 00:03] LABS: ANION GAP 8 mmol/L (5-15); BLOOD UREA NITROGEN 10 mg/dL (7-18); CALCIUM 8.4 MG/DL (8.5-10.1); CARBON DIOXIDE 29 MMOL/L (21-32); CHLORIDE 105 MMOL/L (98-107); CREATININE 1.8 MG/DL (0.55-1.30); POTASSIUM 3.7 MMOL/L (3.5-5.1); SODIUM 142 MMOL/L (136-145)
[2018-08-12 02:08] VITALS: BP 159/96
[2018-08-12 02:28] VITALS: BP 159/96
--- NOTE | 2018-08-12 19:39 | Cardiology Report ---
APPROVED REPORT EKG Measurement Heart [id number] Normal sinus rhythm with sinus arrhythmia Minimal voltage criteria for LVH, may be normal variant Borderline ECG
== END 2018-08-12 02:28 | disposition short-term general hospital (02) ==
LOC: EMR 22:41
DX: I24.9 Acute ischemic heart disease, unspecified (principal); I10 Essential (primary) hypertension; Z98.1 Arthrodesis status; G81.94 Hemiplegia, unspecified affecting left nondominant side; Z88.8 Allergy status to other drugs, medicaments and biological substances
CPT/HCPCS: 36415; 80048; 82550; 83880; 84484; 85025; 93005; 96361; 96374; 96376; 99284; J0360

== ENCOUNTER 2018-08-27 21:21 | Emergency (ER) | payer MEDICARE ==
[~2018-08-27] VITALS: Ht 167.6 cm; Wt 81.6 kg
[~2018-08-27 21:21] MED LIST changes: +LISINOPRIL5 MG ORAL
--- NOTE | 2018-08-27 21:30 | NUR ---
ED Nurse Note: Patient walk in c/o sharp pain radiating to stomach and right arm since 1500. Pain started while walking. Patient reports SOB. IV ACCESS ESTABLISHED. BLOOD COLLECTED; SENT DOWN TO LAB. AOJoseph. DEE. LEATHA
--- NOTE | 2018-08-27 21:51 | Emergency Room Report ---
History of Present Illness General Chief Complaint: Chest Pain Source: Patient Present Illness HPI Is a 53-year-old male with a history of high blood pressure. He presents with chief point of chest pain. This is a recurrent issue for him. He was walking up the steps when his felt short of breath. [place] some chest pressure. He said the pain radiated to his left arm and to his abdomen area down to his groin area. Pain is 7 out of 10. Pressure-like. Similar symptom in the past. No pain now. No nausea no vomiting. No fever chills. The has been here 3 times this month for the same thing. He was transferred to [place] a couple weeks ago. He was kept for observation was negative. Earlier this year he was at [facility] and had an angiogram done. According to the note from the discharge paperwork here and the patient, he had a small blockage to one of the artery that did not require stenting. It was medical management. Allergies: Coded Allergies: KETOROLAC (Unverified Adverse Reaction, Intermediate, n/v, 08/11/18) Uncoded Allergies: TORODOL (Allergy, Unknown, 02/25/16) Patient History Past Medical History: see triage record, old chart reviewed, HTN Past Surgical History: none Pertinent Family History: none Social History: Denies: smoking Immunizations: other Reviewed Nursing Documentation: PMH: Agreed; PSxH: Agreed Nursing Documentation-PMH Past Medical History: No History, Except For Hx Cardiac Problems: No - HCL Hx Hypertension: Yes Hx Cancer: No Hx Gastrointestinal Problems: Yes Hx Neurological Problems: Yes - 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) , Neuralgia & neuritis Hx Cerebrovascular Accident: Yes - CVA w/ Lt side weaknedss 2010,2016 Hx Neurologic Surgery: Yes - Craniotomy at [place]/ Intracranial hemorrage Review of Systems Eye: Denies: eye pain, blurred vision ENT: Denies: ear pain, nose congestion, throat swelling Respiratory: Denies: cough, shortness of breath Cardiovascular: Reports: chest pain; Denies: palpitations Gastrointestinal: Denies: abdominal pain, diarrhea, nausea, vomiting Musculoskeletal: Denies: back pain, joint pain Skin: Denies: rash Neurological: Denies: headache, numbness Endocrine: Denies: increased thirst, increased urine Hematologic/Lymphatic: Denies: easy bruising All Other Systems: negative except mentioned in HPI Physical Exam Vital Signs Date Time Temp Pulse Resp B/P (MAP) Pulse Ox O2 Delivery O2 Flow Rate FiO2 08/27/18 21:27 98.6 101 16 121/78 96 Room Air vitals normal Sp02 EP Interpretation: reviewed, normal General Appearance: well appearing, no apparent distress, alert Head: normocephalic, atraumatic Eyes: bilateral eye PERRL, bilateral eye EOMI ENT: hearing grossly normal, normal pharynx Neck: full range of motion, supple, no meningismus Respiratory: chest non-tender, lungs clear, normal breath sounds Cardiovascular #1: regular rate, rhythm, no murmur Gastrointestinal: normal bowel sounds, non tender, no mass, no organomegaly, no bruit, non-distended Musculoskeletal: back normal, gait/station normal, normal range of motion Psychiatric: mood/affect normal Skin: warm/dry Medical Decision Making Diagnostic Impression: Primary Impression: Chest pain Qualified Codes: R07.9 - Chest pain, unspecified ER Course Patient with recurrent chest pain. No evidence of ACS, PE, dissection to name a few. We'll discharge home. EKG Diagnostic Results Rate: normal Rhythm: NSR ST Segments: no acute changes ASA given to the pt in ED: Yes Rhythm Strip Diag. Results EP Interpretation: yes Rate: 88 Rhythm: NSR, no PVC's, no ectopy Last Vital Signs Date Time Temp Pulse Resp B/P (MAP) Pulse Ox O2 Delivery O2 Flow Rate FiO2 08/27/18 21:27 98.6 101 16 121/78 96 Room Air Status: improved Disposition: HOME, SELF-CARE Condition: Stable Scripts Isosorbide Dinitrate (ISOSORBIDE DINITRATE*) 5 Mg Tablet 5 MG ORAL DAILY, #30 TAB 0 Refills Prov: Abdiel Villar MD 08/27/18 Patient Instructions: Nonspecific Chest Pain Additional Instructions: Follow-up with your doctor in 7 days. Return if symptom worsen. Abdiel Villar MD Aug 27, 2018 21:51
[2018-08-27] MEDS ORDERED: Aspirin Baby 81mg ORAL ONE (22:00)
[2018-08-27 22:08] VITALS: BP 121/78
[2018-08-27 22:08] LABS: BASOPHILS % (AUTO) 1.6 % (0.0-2.0); HEMATOCRIT 38.7 % (42.0-52.0); HEMOGLOBIN 12.3 G/DL (14.2-18.0); LYMPHOCYTES % (AUTO) 26.8 % (20.0-45.0); MEAN CORPUSCULAR VOLUME 92 FL (80-99); MONOCYTES % (AUTO) 6.3 % (1.0-10.0); NEUTROPHILS % (AUTO) 60.3 % (45.0-75.0); PLATELET COUNT 166 K/UL (150-450); RED BLOOD COUNT 4.19 M/UL (4.70-6.10); RED CELL DISTRIBUTION WIDTH 13.6 % (11.6-14.8)
[2018-08-27 22:18] LABS: ANION GAP 11 mmol/L (5-15); BLOOD UREA NITROGEN 9 mg/dL (7-18); CALCIUM 8.6 MG/DL (8.5-10.1); CARBON DIOXIDE 25 MMOL/L (21-32); CHLORIDE 107 MMOL/L (98-107); CREATININE 2.1 MG/DL (0.55-1.30); POTASSIUM 3.6 MMOL/L (3.5-5.1); SODIUM 143 MMOL/L (136-145)
[2018-08-27 22:31] LABS: ALANINE AMINOTRANSFERASE 21 U/L (12-78); ALBUMIN 3.7 G/DL (3.4-5.0); ALBUMIN/GLOBULIN RATIO 1.2 (1.0-2.7); ALKALINE PHOSPHATASE 38 U/L (46-116); ASPARTATE AMINO TRANSFERASE 15 U/L (15-37); BILIRUBIN,TOTAL 0.5 MG/DL (0.2-1.0); CKMB 1.6 NG/ML (0.0-3.6); CREATINE KINASE 485 U/L (26-308)
--- NOTE | 2018-08-27 23:00 | NUR ---
ED Nurse Note: REPEAT TROPONIN TA; SENT DOWN TO LAB.
[2018-08-27] MEDS ORDERED: ISOSORBIDE DINIT5 MG ORAL (23:47)
[2018-08-27 23:50] VITALS: BP 121/78
--- NOTE | 2018-08-27 23:53 | NUR ---
ER DISCHARGE NOTE: Patient is cleared to be discharged per ERMD, pt is aox4, on room air, with stable vital signs. pt was given dc and prescription instructions, pt was able to verbalize understanding, pt id band and iv site removed without complications. pt is able to ambulate with steady gait. pt took all belongings.
--- NOTE | 2018-08-28 15:37 | Diagnostic Imaging Report ---
Indication: Chest pain, shortness of breath Technique: One view of the chest Comparison: 08/09/2018 Findings: Inspiration is suboptimal. Lungs and pleural spaces are clear. The heart is upper limits normal in size. No significant interim change Impression: No acute process
--- NOTE | 2018-08-30 15:17 | Cardiology Report ---
APPROVED REPORT EKG Measurement Heart [id number] Normal sinus rhythm Minimal voltage criteria for LVH, may be normal variant Borderline ECG
== END 2018-08-27 23:50 | disposition home or self-care (01) ==
LOC: EMR 21:50
DX: R07.9 Chest pain, unspecified (principal); Z88.8 Allergy status to other drugs, medicaments and biological substances; I10 Essential (primary) hypertension; G81.94 Hemiplegia, unspecified affecting left nondominant side; Z98.1 Arthrodesis status; R06.02 Shortness of breath; R10.9 Unspecified abdominal pain; M79.602 Pain in left arm
CPT/HCPCS: 36415; 71045; 80053; 82550; 82553; 84484; 85025; 93005; 99283

== ENCOUNTER 2019-02-22 19:12 | Inpatient (IN) | payer MEDICARE ==
[~2019-02-22] VITALS: Ht 167.6 cm; Wt 83.9 kg
[~2019-02-22 19:12] MED LIST changes: +ISOSORBIDE DINIT5 MG ORAL
--- NOTE | 2019-02-22 19:30 | NUR ---
ED Nurse Note: Recived pt from home, here with c/o chest pain radiating to back at 10/10 since am, pt alsohas sob, pt is awake, alert and orieted x 4, immeidately gowned and placed on cardiac monitoirng, ekg, IV line and labs done also, MD at bedside, will resume care as ordered and continue to closely monitor.
[2019-02-22 19:53] LABS: BASOPHILS % (AUTO) 1.4 % (0.0-2.0); EOSINOPHILS % (AUTO) 2.7 % (0.0-3.0); HEMOGLOBIN 14.7 G/DL (14.2-18.0); LYMPHOCYTES % (AUTO) 17.8 % (20.0-45.0); MEAN CORPUSCULAR VOLUME 92 FL (80-99); MONOCYTES % (AUTO) 6.7 % (1.0-10.0); NEUTROPHILS % (AUTO) 71.4 % (45.0-75.0); PLATELET COUNT 246 K/UL (150-450); RED BLOOD COUNT 4.79 M/UL (4.70-6.10); RED CELL DISTRIBUTION WIDTH 13.4 % (11.6-14.8)
[2019-02-22 19:59] LABS: ANION GAP 12 mmol/L (5-15); BLOOD UREA NITROGEN 12 mg/dL (7-18); CALCIUM 9.8 MG/DL (8.5-10.1); CARBON DIOXIDE 23 MMOL/L (21-32); CHLORIDE 105 MMOL/L (98-107); CREATININE 1.7 MG/DL (0.55-1.30); POTASSIUM 4.6 MMOL/L (3.5-5.1); SODIUM 140 MMOL/L (136-145)
[2019-02-22 20:00] VITALS: BP 200/116
[2019-02-22 20:12] LABS: ALANINE AMINOTRANSFERASE 20 U/L (12-78); ALBUMIN 4.5 G/DL (3.4-5.0); ALBUMIN/GLOBULIN RATIO 1.3 (1.0-2.7); ALKALINE PHOSPHATASE 46 U/L (46-116); ASPARTATE AMINO TRANSFERASE 24 U/L (15-37); BILIRUBIN,TOTAL 0.9 MG/DL (0.2-1.0); CKMB 1.8 NG/ML (0.0-3.6); CREATINE KINASE 422 U/L (26-308)
[2019-02-22] MEDS ORDERED: Morphine Sulfate 4mg/ml Inj (IV USE ONLY) IVP ONE (20:15)
[2019-02-22 20:45] VITALS: BP 184/100
--- NOTE | 2019-02-22 20:45 | NUR ---
ED Nurse Note: Pt medicated with pain and HTN meds, both not effective, b/p remains elevated and pt pain level at 8/10, MD informed immediately, pt being admitted to hospital, waiting for new orders, will continue to closely monitor.
--- NOTE | 2019-02-22 21:05 | Diagnostic Imaging Report ---
EXAM: XR Chest, 1 View CLINICAL HISTORY: PAIN TECHNIQUE: Frontal view of the chest. COMPARISON: No relevant prior studies available. FINDINGS: Lungs: Unremarkable. No consolidation. Pleural space: Unremarkable. No pneumothorax. Heart: Unremarkable. No cardiomegaly. Mediastinum: Unremarkable. Bones joints: Unremarkable. IMPRESSION: No acute cardiopulmonary abnormality.
--- NOTE | 2019-02-22 21:24 | Emergency Room Report ---
History of Present Illness General Chief Complaint: Chest Pain Source: Patient, Medical Record Present Illness HPI 54-year-old male presents ED for evaluation. Complaining of chest pain shortness of breath x1 day. Chest pain is left-sided, pressure, 7 out of 10, nonradiating. Also no shortness of breath. Denies leg swelling. Denies alcohol or drug use. History of CVA. 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 States he has been compliant with his medications. BP high in triage. No other aggravating relieving factors. Denies any other associated symptoms Allergies: Coded Allergies: KETOROLAC (Unverified Adverse Reaction, Intermediate, n/v, 08/11/18) Uncoded Allergies: TORODOL (Allergy, Unknown, 02/25/16) Patient History Past Medical History: HTN, CVA/TIA, other - spinal fusion Pertinent Family History: none Social History: Denies: smoking, alcohol use, drug use Immunizations: UTD Reviewed Nursing Documentation: PMH: Agreed; PSxH: Agreed Nursing Documentation-PMH Past Medical History: No History, Except For Hx Cardiac Problems: No - HCL Hx Hypertension: Yes Hx Cancer: No Hx Gastrointestinal Problems: Yes Hx Neurological Problems: Yes - 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) , Neuralgia & neuritis Hx Cerebrovascular Accident: Yes - CVA w/ Lt side weaknedss 2010,2016 Hx Neurologic Surgery: Yes - Craniotomy at [facility]/ Intracranial hemorrage Review of Systems All Other Systems: negative except mentioned in HPI Physical Exam Vital Signs Date Time Temp Pulse Resp B/P (MAP) Pulse Ox O2 Delivery O2 Flow Rate FiO2 02/22/19 19:17 98.2 93 18 183/115 (137) 98 Room Air Sp02 EP Interpretation: reviewed, normal General Appearance: no apparent distress, alert, GCS 15, non-toxic, obese Head: normocephalic, atraumatic Eyes: bilateral eye normal inspection, bilateral eye PERRL ENT: hearing grossly normal, normal pharynx, no angioedema, normal voice Neck: full range of motion, supple/symm/no masses Respiratory: chest non-tender, lungs clear, normal breath sounds, speaking full sentences Cardiovascular #1: regular rate, rhythm, no edema Cardiovascular #2: 2+ carotid (R), 2+ carotid (L), 2+ radial (R), 2+ radial (L) , 2+ dorsalis pedis (R), 2+ dorsalis pedis (L) Gastrointestinal: normal bowel sounds, non tender, soft, non-distended, no guarding, no rebound Rectal: deferred Genitourinary: normal inspection, no CVA tenderness Musculoskeletal: back normal, gait/station normal, normal range of motion, non- tender Neurologic: alert, oriented x3, responsive, motor strength/tone normal, sensory intact, speech normal Psychiatric: judgement/insight normal, memory normal, mood/affect normal, no suicidal/homicidal ideation Reflexes: 3+ bicep (R), 3+ bicep (L), 3+ tricep (R), 3+ tricep (L), 3+ knee (R) , 3+ knee (L) Lymphatic: no adenopathy Procedures Critical Care Time Critical Care Time i. I feel this is a highly complex case requiring extensive working including EKG/Rhythm strip, Xray/CT/US, Blood/urine lab work, repeat exams while in ED, and administration of strong opiates/narcotics for pain control, admission to hospital or close patient follow up. Total time: 30 min bedside evaluation and treatment excludes procedures (EKG). Reason for critical care: chest pain, hypertensive urgency Possible complications: hypotension, hypertension, NH, shock, arrhythmias, metabolic acidosis, end organ damage, respiratory failure. Interventions: labs, EKG, CXR, morphine, hydralazine x 2, aspirin Course: Presenting with chest pain. Elevated BP. Systolic greater than 200. EKG normal sinus rhythm no acute ischemic changes interpreted by me. Troponin negative. Given aspirin. Given hydralazine x2. Given morphine. BP improved Consultations: nursing staff, EMS, family Performed by: Dr Arriaga Tolerated well condition = serious j. because of unstable vital signs this patient had a condition that could potentially threaten life or limb. I feel this is a critical patient who required my full attention while patient was considered critical. Total Critical Care Time excluding procedures was greater than 35 minutes Medical Decision Making Diagnostic Impression: Primary Impression: ACS (acute coronary syndrome) Additional Impressions: Hypertensive urgency Renal insufficiency ER Course Hospital Course 46-year-old male presents ED complaining of shortness of breath, chest pain, elevated BP Differential diagnoses include: NH/unstable angina, CVA/TIA, hypertensive urgency Clinical course Patient placed on stretcher. on site monitor. After initial history and physical I ordered labs, EKG, chest x-ray, pain meds labs reviewed- no leukocytosis, hemoglobin/hematocrit stable, Cr 1.7, troponins negative. Chest x-ray- unremarkable EKG - NSR, no acute ischemic changes interpreted by me Patient required multiple rounds of BP meds to get BP under control. given aspirin Case discussed with Dr. Lucas and he agreed to accept the patient to his service for further care and support I. I feel this is a highly complex case requiring extensive working including EKG/Rhythm strip, Xray/CT/US, Blood/urine lab work, repeat exams while in ED, and administration of strong opiates/narcotics for pain control, admission to hospital or close patient follow up. Diagnosis - hypertensive urgency, ACS, renal insufficiency admitted to telemetry in serious condition Labs Test 02/22/19 19:30 White Blood Count 10.0 K/UL (4.8-10.8) Red Blood Count 4.79 M/UL (4.70-6.10) Hemoglobin 14.7 G/DL (14.2-18.0) Hematocrit 44.0 % (42.0-52.0) Mean Corpuscular Volume 92 FL (80-99) Mean Corpuscular Hemoglobin 30.6 PG (27.0-31.0) Mean Corpuscular Hemoglobin Concent 33.4 G/DL (32.0-36.0) Red Cell Distribution Width 13.4 % (11.6-14.8) Platelet Count 246 K/UL (150-450) Mean Platelet Volume 8.1 FL (6.5-10.1) Neutrophils (%) (Auto) 71.4 % (45.0-75.0) Lymphocytes (%) (Auto) 17.8 % (20.0-45.0) Monocytes (%) (Auto) 6.7 % (1.0-10.0) Eosinophils (%) (Auto) 2.7 % (0.0-3.0) Basophils (%) (Auto) 1.4 % (0.0-2.0) Sodium Level 140 MMOL/L (136-145) Potassium Level 4.6 MMOL/L (3.5-5.1) Chloride Level 105 MMOL/L (98-107) Carbon Dioxide Level 23 MMOL/L (21-32) Anion Gap 12 mmol/L (5-15) Blood Urea Nitrogen 12 mg/dL (7-18) Creatinine 1.7 MG/DL (0.55-1.30) Estimat Glomerular Filtration Rate 51.5 mL/min (>60) Glucose Level 101 MG/DL (74-106) Calcium Level 9.8 MG/DL (8.5-10.1) Total Bilirubin 0.9 MG/DL (0.2-1.0) Aspartate Amino Transf (AST/SGOT) 24 U/L (15-37) Alanine Aminotransferase (ALT/SGPT) 20 U/L (12-78) Alkaline Phosphatase 46 U/L (46-116) Total Creatine Kinase 422 U/L (26-308) Creatine Kinase MB 1.8 NG/ML (0.0-3.6) Creatine Kinase MB Relative Index 0.4 Troponin I 0.000 ng/mL (0.000-0.056) Pro-B-Type Natriuretic Peptide 213 pg/mL (0-125) Total Protein 7.9 G/DL (6.4-8.2) Albumin 4.5 G/DL (3.4-5.0) Globulin 3.4 g/dL Albumin/Globulin Ratio 1.3 (1.0-2.7) EKG Diagnostic Results Rate: normal Rhythm: NSR ST Segments: no acute changes ASA given to the pt in ED: Yes Rhythm Strip Diag. Results EP Interpretation: yes Rhythm: NSR, no PVC's, no ectopy Chest X-Ray Diagnostic Results Chest X-Ray Diagnostic Results : Chest X-Ray Ordered: Yes # of Views/Limited/Complete: 1 View Indication: Chest Pain EP Interpretation: Yes Interpretation: no consolidation, no effusion, no pneumothorax, no acute cardiopulmonary disease Impression: No acute disease Electronically Signed by: Electronically signed by Rayshawn Arriaga MD Last Vital Signs Date Time Temp Pulse Resp B/P (MAP) Pulse Ox O2 Delivery O2 Flow Rate FiO2 02/22/19 20:45 98.2 81 18 184/100 99 Room Air Status: improved Disposition: ADMITTED INPATIENT Condition: Serious Referrals: Matheus Lucas MD (PCP) Rayshawn Arriaga MD Feb 22, 2019 21:24
--- NOTE | 2019-02-22 21:45 | NUR ---
ED Nurse Note: Pt medicated with b/p med second time, not effective, MD is aware, pt being medicated again to send to floor bed for admission, tp also c/o continued chest pain, MD also is aware.
[2019-02-22 22:00] VITALS: BP 161/87
--- NOTE | 2019-02-22 22:25 | NUR ---
ED Nurse Note: med recon done at the bedside, pt reports no changes in medication from previous visit, med list went over with patient.
--- NOTE | 2019-02-22 22:30 | NUR ---
ED Nurse Note: Pt medicated for elevated b/p, meds now effective, b/p has decreased to normal limit, pt continues to c/o chest pain at 01/14, MD aware, no new orders given, IV site patent, report called to floor nurse HOLLY Jacobs, pt being taken to floor unit via gurney with RN and ER-Tech on ACLS protocol with monitoring. NAD noted during pt transporting.
[2019-02-22 22:40] VITALS: BP 146/98
--- NOTE | 2019-02-22 23:55 | NUR ---
NURSE NOTES: Received report from HOLLY Suggs ED. Patient was transferred from ED to telemetry without any incident. Patient is awake, A/Ox4. Denies pain at this time. No signs of acute distress. Checked IV site and flushed. No erythema, bleeding or infiltration noted. Patient is placed on tele box, ST on the monitor, 110bpm. Body assessment done with no skin issues. Belonging list checked with transferring RN. Bed at lowest position, brakes on, siderails x2. Call light within reach. Will continue to monitor. [id number] Lucas for admitting orders. Spoke with Dr. Lucas received admitting orders. Noted and carried out.
[2019-02-23] VITALS (24 sets, daily range): BP systolic 84–146; BP diastolic 46–104
[2019-02-23] MEDS ORDERED: HYDROcodone/Acetamin 10/325 tab ORAL PRN ×2 (05:00→09:42)
--- NOTE | 2019-02-23 07:20 | NUR ---
NURSE NOTES: I received the patient awake and resting in bed. Patient alert and oriented x4. Patient complained of pain 8/10 and expressed that the [place] is not controlling his pain. Bed in the lowest position and call light within reach. Doctor contacted about pain medication order. I will continue to monitor the patient and implement care.
--- NOTE | 2019-02-23 07:45 | NUR ---
NURSE NOTES: Patient's blood pressure elevated and troponin trended upward. Night RN spoke with Dr. Gould about the patient's conditions and he ordered the patient to be transferred to ICU. A stat EKG was performed and stat troponin ordered.
--- NOTE | 2019-02-23 08:20 | NUR ---
NURSE NOTES: 0200 Patient complained of chest pain, radiating to the neck, with a pain scale of 10/10. Offered O2 via NC @ 2LPM. EKG done which revealed NSR. Per Tech, patient is experiencing multiple episode of T wave inversion on the monitor. Charge nurse made aware and advised to wait for the result of the Troponin. Comfort care provided. Will continue to monitor. [address] Mendoza and reported Troponin I result of 2.560 for further orders. Awaiting for callback. Will continue to monitor. 0708 Per tech, patient is experiencing 8 beats V tach. Paged Dr. Wallace of ECG result on the monitor. Awaiting for callback. 0740 Hand off given to HOLLY Weaver. Plan of care endorsed. [address] Mendoza with new orders. Endorsed to RN AM shift.
[2019-02-23] MEDS ORDERED: Aspirin EC 81mg tab ORAL SCH (09:00)
[2019-02-23] MEDS ORDERED: Allopurinol 100mg Tab ORAL SCH (09:00)
[2019-02-23] MEDS ORDERED: Lisinopril 2.5mg tab ORAL SCH (09:00)
[2019-02-23] MEDS ORDERED: Metoprolol 25mg tab ORAL SCH (09:00)
--- NOTE | 2019-02-23 09:13 | NUR ---
NURSE NOTES: Patient transferred to ICU to room 246-E after troponin was 2.560, he is awake and calm, no facial grimacing or guarding over chest, HR is 86, BP 144/97, saturating at 100% with 2L/min with RR of 16-17, patient is using cellular phone and demonstrates 5/5 dexterity,
[2019-02-23 09:41] LABS: BASOPHILS % (AUTO) 1.1 % (0.0-2.0); EOSINOPHILS % (AUTO) 1.3 % (0.0-3.0); HEMOGLOBIN 14.3 G/DL (14.2-18.0); LYMPHOCYTES % (AUTO) 18.9 % (20.0-45.0); MEAN CORPUSCULAR VOLUME 92 FL (80-99); MONOCYTES % (AUTO) 7.1 % (1.0-10.0); NEUTROPHILS % (AUTO) 71.7 % (45.0-75.0); PLATELET COUNT 240 K/UL (150-450); RED BLOOD COUNT 4.65 M/UL (4.70-6.10); WHITE BLOOD COUNT 8.4 K/UL (4.8-10.8)
[2019-02-23] MEDS ORDERED: HYDROcodone/Acetamin 5/325 tab ORAL PRN ×2 (09:42)
[2019-02-23] MEDS ORDERED: Heparin 25,000u/D5W 500ml 500 ML IV SCH ×3 (10:00→18:00)
--- NOTE | 2019-02-23 10:08 | NUR ---
HAND-OFF: Report given to HOLLY Cosme. Dr. Gould made aware of troponin of 4.438, no further orders given at this time.
--- NOTE | 2019-02-23 10:10 | NUR ---
NURSE NOTES: Late entry. PT A/O X 4, on 2L-NC 100% saturation, VS BP 125/80; HR 66; RR 12. No S/S of respiratory distress, PT has no complaints of pain, PT states he has no chest pain. Bilateral upper extremity and lower extremity shows no signs of edema. L-hand strength is weaker at 3/5, R-hand strength at 4/5. PT acknowledges weakness on L-hand due to history of major stroke in 2010, and "TIA" in 2017. PT cooperative, able to ambulate but informed PT to stay in bed for safety reason, wrist bands for Fall Risk, and Allergies to Toradol placed on PT. PT states Toradol makes him nausea only, denies vomiting. PT has R-hand 20g, patent, no edema or S/S of infiltration, flushes well. Will continue to monitor PT. Addendum: 02/23/19 at 1046 by Ba Matute RN NURSE NOTES: Amended due to wrong IV gauge; correct gauge is R-hand 22g Late entry. PT A/O X 4, on 2L-NC 100% saturation, VS BP 125/80; HR 66; RR 12. No S/S of respiratory distress, PT has no complaints of pain, PT states he has no chest pain. Bilateral upper extremity and lower extremity shows no signs of edema. L-hand strength is weaker at 3/5, R-hand strength at 4/5. PT acknowledges weakness on L-hand due to history of major stroke in 2010, and "TIA" in 2017. PT cooperative, able to ambulate but informed PT to stay in bed for safety reason, wrist bands for Fall Risk, and Allergies to Toradol placed on PT. PT states Toradol makes him nausea only, denies vomiting. PT has R-hand 22g, patent, no edema or S/S of infiltration, flushes well. Will continue to monitor PT.
--- NOTE | 2019-02-23 10:23 | NUR ---
NURSE NOTES: Late entry. R-hand 22g patent, flushes well. Heparin drip started per MD Byranna orders. Secondary RN verification performed by Jelena Melo RN. Baseline PTT @ 27. Drip started at 1023, placed order for 6hr PTT at 1620 per [facility] protocol. MISAEL Rivero made aware. Will continue to monitor PT.
--- NOTE | 2019-02-23 11:57 | NUR ---
NURSE NOTES: PT given lunch, called MD Lance in regards to obtaining orders for sleep aid for PT, PT states "I hasn't been able to sleep since Sunday night". Left message with MD Lance at [phone] with answering service [facility] for call back with medication orders.
[2019-02-23] MEDS ORDERED: Heparin 5000 units/ml inj IV SCH (12:15)
--- NOTE | 2019-02-23 12:20 | NUR ---
NURSE NOTES: PT has no chest pain "no, I'm fine thank you", when asked. Heparin 5000u IV bolus once will be given per order, verified with Zain Solorio.
--- NOTE | 2019-02-23 12:49 | NUR ---
NURSE NOTES: MD Bryanna made aware of most recent troponin level at 1145am of 4.900.
--- NOTE | 2019-02-23 12:50 | NUR ---
HAND-OFF: Report and PT given to MISAEL Rivero.
--- NOTE | 2019-02-23 13:30 | NUR ---
NURSE NOTES: Received the patient from HOLLY Rivero. Patient is awake, alert and orientedx4. On 2L O2 via NC. No acute distress noted. SR w/ ST depression noted on court recording monitor. Patient denies any chest pain or SOB. Skin intact. Right hand 22G intact, asymptomatic, running heparin gtt at 12unit/kg/min. No active bleeding noted. Bed in lowest position, locked, side rails upx3. Call light within reach. Will continue to monitor. Addendum: 02/23/19 at 1716 by SANGITA NATION RN Correct time: received the patient from Mat at 1530.
--- NOTE | 2019-02-23 14:23 | Cardiac Electrophysiology PN ---
Subjective Subjective [id number] STEMI with rising troponin top 4.9 Need transfer to higher level of care for cardiac cath. No CP. No CT elevation. Objective Last 24 Hour Vital Signs Date Time Temp Pulse Resp B/P (MAP) Pulse Ox O2 Delivery O2 Flow Rate FiO2 02/23/19 12:00 Nasal Cannula 2.0 02/23/19 12:00 98.6 101 12 126/87 (100) 100 02/23/19 11:00 68 15 144/91 (108) 100 02/23/19 10:00 69 12 125/80 (95) 100 02/23/19 09:32 98.0 87 13 144/97 (113) 100 02/23/19 09:00 Nasal Cannula 2.0 02/23/19 08:37 101 146/104 02/23/19 08:37 101 146/104 02/23/19 08:36 146/104 02/23/19 08:35 146/104 02/23/19 08:00 98.6 101 20 146/104 (118) 93 02/23/19 07:47 98 02/23/19 06:59 105 02/23/19 06:09 160/109 02/23/19 04:00 98.2 87 20 140/86 (104) 98 02/23/19 04:00 104 02/23/19 00:00 107 02/23/19 00:00 99.1 103 20 128/84 (99) 95 02/22/19 23:47 Room Air 02/22/19 23:00 98.2 88 18 146/98 99 Room Air 02/22/19 22:40 98.2 88 18 146/98 99 Room Air 02/22/19 22:12 184/100 02/22/19 22:00 98.2 81 18 161/87 99 Room Air 02/22/19 21:05 99.1 02/22/19 21:05 99.1 02/22/19 20:45 98.2 81 18 184/100 99 Room Air 02/22/19 20:38 200/116 02/22/19 20:00 98.2 81 18 200/116 99 Room Air 02/22/19 19:30 93 18 Room Air 02/22/19 19:17 98.2 93 18 183/115 (137) 98 Room Air Intake and Output 02/22/19 02/23/19 19:00 07:00 Intake Total 120 ml Output Total 300 ml Balance -180 ml Intake Oral 120 ml Output Urine Total 300 ml # Voids 3 Laboratory Tests Test 02/22/19 19:30 02/23/19 04:13 02/23/19 08:28 02/23/19 09:30 White Blood Count 10.0 K/UL (4.8-10.8) 8.4 K/UL (4.8-10.8) Red Blood Count 4.79 M/UL (4.70-6.10) 4.65 M/UL (4.70-6.10) L Hemoglobin 14.7 G/DL (14.2-18.0) 14.3 G/DL (14.2-18.0) Hematocrit 44.0 % (42.0-52.0) 43.0 % (42.0-52.0) Mean Corpuscular Volume 92 FL (80-99) 92 FL (80-99) Mean Corpuscular Hemoglobin 30.6 PG (27.0-31.0) 30.8 PG (27.0-31.0) Mean Corpuscular Hemoglobin Concent 33.4 G/DL (32.0-36.0) 33.3 G/DL (32.0-36.0) Red Cell Distribution Width 13.4 % (11.6-14.8) 13.0 % (11.6-14.8) Platelet Count 246 K/UL (150-450) 240 K/UL (150-450) Mean Platelet Volume 8.1 FL (6.5-10.1) 7.4 FL (6.5-10.1) Neutrophils (%) (Auto) 71.4 % (45.0-75.0) 71.7 % (45.0-75.0) Lymphocytes (%) (Auto) 17.8 % (20.0-45.0) L 18.9 % (20.0-45.0) L Monocytes (%) (Auto) 6.7 % (1.0-10.0) 7.1 % (1.0-10.0) Eosinophils (%) (Auto) 2.7 % (0.0-3.0) 1.3 % (0.0-3.0) Basophils (%) (Auto) 1.4 % (0.0-2.0) 1.1 % (0.0-2.0) Sodium Level 140 MMOL/L (136-145) Potassium Level 4.6 MMOL/L (3.5-5.1) Chloride Level 105 MMOL/L (98-107) Carbon Dioxide Level 23 MMOL/L (21-32) Anion Gap 12 mmol/L (5-15) Blood Urea Nitrogen 12 mg/dL (7-18) Creatinine 1.7 MG/DL (0.55-1.30) H Estimat Glomerular Filtration Rate 51.5 mL/min (>60) Glucose Level 101 MG/DL (74-106) Calcium Level 9.8 MG/DL (8.5-10.1) Total Bilirubin 0.9 MG/DL (0.2-1.0) Aspartate Amino Transf (AST/SGOT) 24 U/L (15-37) Alanine Aminotransferase (ALT/SGPT) 20 U/L (12-78) Alkaline Phosphatase 46 U/L (46-116) Total Creatine Kinase 422 U/L (26-308) H Creatine Kinase MB 1.8 NG/ML (0.0-3.6) Creatine Kinase MB Relative Index 0.4 Troponin I 0.000 ng/mL (0.000-0.056) 2.560 ng/mL (0.000-0.056) 4.438 ng/mL (0.000-0.056) Pro-B-Type Natriuretic Peptide 213 pg/mL (0-125) H Total Protein 7.9 G/DL (6.4-8.2) Albumin 4.5 G/DL (3.4-5.0) Globulin 3.4 g/dL Albumin/Globulin Ratio 1.3 (1.0-2.7) Prothrombin Time 11.0 SEC (9.30-11.50) Prothromb Time International Ratio 1.0 (0.9-1.1) Activated Partial Thromboplast Time 27 SEC (23-33) Test 02/23/19 11:45 Troponin I 4.900 ng/mL (0.000-0.056) Dani Gould MD Feb 23, 2019 14:23
[2019-02-23 16:28] LABS: ANION GAP 6 mmol/L (5-15); BLOOD UREA NITROGEN 17 mg/dL (7-18); CALCIUM 9.1 MG/DL (8.5-10.1); CARBON DIOXIDE 28 MMOL/L (21-32); CHLORIDE 105 MMOL/L (98-107); CREATININE 2.1 MG/DL (0.55-1.30); POTASSIUM 3.9 MMOL/L (3.5-5.1); SODIUM 139 MMOL/L (136-145)
[2019-02-23 16:33] LABS: ALANINE AMINOTRANSFERASE 19 U/L (12-78); ALBUMIN/GLOBULIN RATIO 1.1 (1.0-2.7); ALKALINE PHOSPHATASE 44 U/L (46-116); ASPARTATE AMINO TRANSFERASE 33 U/L (15-37); BILIRUBIN,TOTAL 0.8 MG/DL (0.2-1.0)
--- NOTE | 2019-02-23 17:10 | NUR ---
NURSE NOTES: Heparin gtt turned off, will resume at 8unit/kg/hr in 60min.
--- NOTE | 2019-02-23 17:30 | NUR ---
NURSE NOTES: Patient seen by Dr. Lucas. Patient made aware of transfer to [facility] for cardiac cath by PMD. Patient agreed with transfer.
[2019-02-23] MEDS: Cyclobenzaprine 10mg Tab ORAL SCH (17:40)
--- NOTE | 2019-02-23 18:10 | NUR ---
NURSE NOTES: Heparin drip started at 8unit/kg/hr. No s/sx of bleeding noted.
--- NOTE | 2019-02-23 19:30 | NUR ---
HAND-OFF: Report given to HOLLY Currie.
--- NOTE | 2019-02-23 19:35 | NUR ---
NURSE NOTES: Received the patient from HOLLY Mondragon. Patient is awake, alert and orientedx4. Watching TV. On 2L O2 via NC satting 96%No acute distress noted. Patient SR HR 81 on detective sergeant. Patient denies any chest pain or SOB. Skin intact. Right hand 22G intact, asymptomatic, running heparin gtt at 8unit/kg/min. No active bleeding noted. Instructed patient to use call light for assistance. Ice water given per patient request. Bed in lowest position, locked, side rails upx3. Call light within reach. Will continue to monitor plan of care.
--- NOTE | 2019-02-23 20:09 | NUR ---
NURSE NOTES: Called Dr. Lucas regarding patient requesting sleeping pills, offered warm milk,talk therapy, quiet and dim light room not effective. spoke with Eric, will follow up.
[2019-02-23] MEDS ORDERED: Atorvastatin 80mg tab ORAL SCH ×2 (21:00)
--- NOTE | 2019-02-23 21:30 | NUR ---
NURSE NOTES: Called Dr Lucas again regrading patient requesting to have sleeping pills Dr Lucas ordered Pito LEACH noted nad carried out. Patient made aware
[2019-02-23] MEDS ORDERED: Zolpidem 5mg tab ORAL PRN (21:38)
--- NOTE | 2019-02-23 21:45 | Consultation ---
DATE OF CONSULTATION: 02/23/2019 CARDIOLOGY CONSULTATION CONSULTING PHYSICIAN: Dani Gould M.D. REFERRING PHYSICIAN: Matheus Lucas M.D. REASON FOR CONSULTATION: [id number] myocardial infarction. HISTORY OF PRESENT ILLNESS: The patient is a 54-year-old gentleman with history of hypertension and history of CVA with left hemiplegia as well as history of craniotomy at [facility] for intracranial hemorrhage, who also had cardiac catheterization in 2017 at [facility] that showed no critical disease. The patient presented to the emergency room complaining of chest pain and shortness of breath of one-day duration. The pain was nonradiating. The patient still has been compliant with his medication. Blood pressure in the ER was also 183/115 with a pulse of 93. The patient did not have any ST elevation. Initial troponin was negative; however, three followup troponins were rising at 2, 4.3, and 4.7. Cardiology consultation was obtained for further evaluation and management. REVIEW OF SYSTEMS: Negative other than what was mentioned in the history of present illness. PAST MEDICAL HISTORY: As mentioned above. FAMILY HISTORY: Noncontributory. SOCIAL HISTORY: He lives at home. Does not smoke or drink alcohol. PHYSICAL EXAMINATION: VITAL SIGNS: Blood pressure of 126/87, pulse is 101, respirations 18, and temperature 98.6. HEAD AND NECK: Showed no JVD or carotid bruits. LUNGS: Clear. CARDIOVASCULAR: Shows regular S1 and S2 with no gallop or murmur. ABDOMEN: Soft. EXTREMITIES: No pitting edema. LABORATORY AND DIAGNOSTIC DATA: His labs show white count of 8.4, hematocrit of 14.2, hematocrit of 43, and platelet count is 240,000. Sodium 140, potassium 4.6, BUN of 12, creatinine 1.7, and glucose of 101. Troponin initially was negative and then 2.5, 4.4, and 4.9. His EKG shows sinus rhythm with nonspecific ST-T wave abnormalities with no ST elevation. ASSESSMENT AND PLAN: 1. [id number] myocardial infarction with rising troponin from negative to 4.9. He however does not have any chest pain at this time. The patient currently is on heparin drip in intensive care unit and aspirin, Isordil, and metoprolol. The patient was started also on a statin as well. The patient would need cardiac catheterization for further evaluation of his coronaries. We will try to get the patient transferred to [facility] where he had previous cardiac catheterization at. 2. Hypertension. Blood pressure is better now on metoprolol 25 mg b.i.d. as well as lisinopril 5 mg daily. The patient is also on Isordil 5 mg daily and Norvasc 2.5 mg daily. I will discontinue Norvasc and beta-ac. 3. History of CVA and left hemiplegia. 4. History of cardiac catheterization in September 2016 that showed no critical coronary artery disease. 5. Chronic kidney disease with creatinine of 1.7. The case was discussed with the ICU nurse as well. Thank you very much for allowing me to participate in the care of this patient. Please do not hesitate to contact me for any questions regarding my evaluation. Dani Gould M.D. DR: OLIVIER JOB#: [id number] CC:
[2019-02-23] MEDS: Metoprolol 25mg tab ORAL SCH (21:49)
--- NOTE | 2019-02-23 22:00 | NUR ---
NURSE NOTES: Patient in bed sleeping comfortably. no s/s of acute distress noted. Skin warm and dry to touch. Ambien ordered PRN insomnia, patient sleeping comfortably. Ambien not given. will continue to monitor patient.
--- NOTE | 2019-02-23 22:35 | NUR ---
NURSE NOTES: Dynamic Etching Processor Bia called and instructions were given on transfer process. Will call nursing water supervisor at [facility] for instructions.
--- NOTE | 2019-02-23 22:37 | NUR ---
NURSE NOTES: called nursing monomer recovery supervisor at [facility] in regards to transfer. She stated that insurance clearance is need first and vocational case manager needs to get insurance approval first
--- NOTE | 2019-02-23 22:40 | NUR ---
NURSE NOTES: Called and spoke with Bia , branch store manager, told her about the conversation with Nursing Relationship Mgr at [facility] and she said she will take care of it in the morning.
--- NOTE | 2019-02-23 22:43 | NUR ---
NURSE NOTES: Face sheet faxed to nursing floatlight loading supervisor at [facility] at this time.
--- NOTE | 2019-02-23 23:00 | NUR ---
NURSE NOTES: Patient in bed sleeping comfortably, patient HR SB 58 and BP 77/64 when patient asleep. wake up patient BP 104/68 HR 72. patient denies any pain or discomfort. informed patient that BP and HR went down while he's sleeping. no s/s of cardiac distress noted. frequent visual checks continued. will continue plan of care.
[2019-02-24] VITALS (21 sets, daily range): BP systolic 96–136; BP diastolic 62–89
--- NOTE | 2019-02-24 | NUR ---
NURSE NOTES: Producer Assistant came and draw Timed PTT. will follow up result
--- NOTE | 2019-02-24 01:01 | NUR ---
NURSE NOTES: Timed PTT >150 will follow protocol. Message send to Kaesu.
[2019-02-24] MEDS ORDERED: Heparin 25,000u/D5W 500ml 500 ML IV SCH (02:00)
--- NOTE | 2019-02-24 03:00 | NUR ---
NURSE NOTES: Patient in bed sleeping comfortably. denies any pain or discomfort. call light within easy reach. No bleeding.
--- NOTE | 2019-02-24 05:00 | NUR ---
NURSE NOTES: Patient in bed ate crackers. patient teaching provided regarding checking blood pressure and HR before taking blood pressure medication at home. patient with good understanding. Patient on Heparin 4units/kg/hr. Call light within easy reach.
--- NOTE | 2019-02-24 06:55 | NUR ---
NURSE NOTES: Dr. Gould called and asked why the patient not transfer to [facility].made aware of patient BP and HR low when sleep only, also the troponin level per Dr. Gould D/C Heparin drip. Charge nurse aware.
--- NOTE | 2019-02-24 07:17 | NUR ---
HAND-OFF: Report given to Syeda BARRERA.NURSE NOTES:
--- NOTE | 2019-02-24 07:18 | NUR ---
NURSE NOTES: Received the patient from HOLLY Currie. Patient is awake, alert and oriented x4. currently sleeping, opens eyes spontaneously, follows commands. On room air, SpO2 96%. No respiratory distress noted. B/P:100/62. Patient SR HR 78 on electronic device monitor. Patient denies any chest pain or SOB. Skin intact. Right hand 22G intact, patent and asymptomatic. Instructed patient to use call light for assistance. Bed in lowest position, locked, side rails up x2. Call light within reach. Will resume plan of care.
[2019-02-24 08:27] LABS: BASOPHILS % (AUTO) 1.8 % (0.0-2.0); EOSINOPHILS % (AUTO) 5.9 % (0.0-3.0); HEMATOCRIT 43.4 % (42.0-52.0); HEMOGLOBIN 14.2 G/DL (14.2-18.0); LYMPHOCYTES % (AUTO) 23.4 % (20.0-45.0); MEAN CORPUSCULAR VOLUME 93 FL (80-99); PLATELET COUNT 212 K/UL (150-450); RED BLOOD COUNT 4.66 M/UL (4.70-6.10); RED CELL DISTRIBUTION WIDTH 12.9 % (11.6-14.8)
[2019-02-24 08:52] LABS: ALANINE AMINOTRANSFERASE 20 U/L (12-78); ALBUMIN 3.9 G/DL (3.4-5.0); ALBUMIN/GLOBULIN RATIO 1.3 (1.0-2.7); ALKALINE PHOSPHATASE 40 U/L (46-116); ANION GAP 10 mmol/L (5-15); ASPARTATE AMINO TRANSFERASE 24 U/L (15-37); BILIRUBIN,TOTAL 0.6 MG/DL (0.2-1.0); BLOOD UREA NITROGEN 20 mg/dL (7-18); CARBON DIOXIDE 27 MMOL/L (21-32); CHLORIDE 107 MMOL/L (98-107); CREATININE 2.1 MG/DL (0.55-1.30); POTASSIUM 4.1 MMOL/L (3.5-5.1); SODIUM 143 MMOL/L (136-145)
[2019-02-24] MEDS ORDERED: Allopurinol 100mg Tab ORAL SCH (09:00)
[2019-02-24] MEDS ORDERED: Aspirin EC 81mg tab ORAL SCH (09:00)
[2019-02-24] MEDS ORDERED: Lisinopril 2.5mg tab ORAL SCH (09:00)
[2019-02-24] MEDS: Cyclobenzaprine 10mg Tab ORAL SCH ×2 (09:09→17:45)
[2019-02-24] MEDS: Metoprolol 25mg tab ORAL SCH ×2 (09:10→20:09)
--- NOTE | 2019-02-24 09:33 | NUR ---
Social Service Note ABILIO spoke with Kelin at [facility] regarding patient transfer for heart cath [phone]. Patient is pending financial clearance. Currently insurance indicates Medicare Part A only. Kelin will contact ABILIO once chart is reviewed. Additional information faxed to [phone]. Addendum: 02/24/19 at 1001 by CHA BAUGH Follow up call placed to Kelin regarding unable to send fax. Per Kelin patient information can be sent with patient. At this time there is no available time to add patient to the Cath schedule until Sunday. Kelin will continue to look at schedule for possible times. Will continue to monitor. Addendum: 02/24/19 at 1536 by CHA BAUGH Transfer to [facility] placed on hold. ABILIO informed Kelin to release bed assignment [facility]. Will follow up as needed.
--- NOTE | 2019-02-24 11:00 | NUR ---
NURSE NOTES: Pt observed to be asleep in bed. Still awaiting update from ABILIO about transfer to [facility]. Will continue to monitor.
--- NOTE | 2019-02-24 11:31 | Cardiology Report ---
APPROVED REPORT EXAM: Two-dimensional and M-mode echocardiogram with Doppler and color Doppler. INDICATION LV FUNCTION M-Mode DIMENSIONS IVSd1.4 (0.7-1.1cm)Left Atrium (MM)3.1 (1.6-4.0cm) LVDd4.6 (3.5-5.6cm)Aortic Root3.5 (2.0-3.7cm) PWd1.3 (0.7-1.1cm)Aortic Cusp Exc.1.8 (1.5-2.0cm) IVSs1.4 cm LVDs3.0 (2.5-4.0cm) PWs1.2 cm Normal left ventricular chamber size, systolic function and wall motion. Left ventricular ejection fraction estimated to be 60-65 %. Mild left ventricular hypertrophy . No evidence of pericardial effusion. All other cardiac chamber sizes are within normal limits. Focal aortic valve sclerosis with adequate cusp excursion. Thickened mitral valve leaflets with normal excursion. Mitral annulus and aortic root calcification. Normal pulmonic valve structure. Normal tricuspid valve structure. IVC at normal size with physiologic collapse. A color flow and spectral Doppler study was performed and revealed: No aortic regurgitation.. Trace mitral regurgitation. Mitral inflow indicates normal left ventricular diastolic function. Trace tricuspid regurgitation. Tricuspid systolic velocities suggests peak right ventricular systolic pressure of 8 mmHg.
--- NOTE | 2019-02-24 11:57 | NUR ---
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 98.2 HR 93 RR 18 B/P 183/115 CR 1.7 TCK 422 TROP 4.438 CXR= NEGATIVE 2D ECHO=EF 60-65% IS: MORPHINE IV ASA PO HYDRALAZINE IV ADMITTED TO ICU IS: HEPARIN GTT ICU STATUS DCP PENDING HOSPITAL STAY
--- NOTE | 2019-02-24 13:55 | Cardiology Report ---
APPROVED REPORT EKG Measurement Heart [id number] NJ [id number] Suspect arm lead reversal, interpretation assumes no reversal Unusual P axis, possible ectopic atrial rhythm Right ventricular hypertrophy Anterolateral infarct, age undetermined Abnormal ECG
--- NOTE | 2019-02-24 13:57 | Cardiology Report ---
APPROVED REPORT EKG Measurement Heart [id number] LA [id number] Normal sinus rhythm Nonspecific T wave abnormality Abnormal ECG
--- NOTE | 2019-02-24 14:47 | Cardiac Electrophysiology PN ---
Assessment/Plan Assessment/Plan 1. Deh-UJ-raxdbjhpd myocardial infarction with peak troponin of 4.9. Levels are coming down and patient does not have any chest pain and echo Nl EF DC heparin drip and continue aspirin, Isordil, Lipitor and metoprolol. Awaiting insurance authorization for cardiac catheterization. Cardiac catheterization at [facility] in September 2016 showed no critical coronary artery disease. Troponin elevation at least partially due to renal failure 2. Hypertension. On metoprolol 25 bid, Lisinopril 5 daily and Isordil 5 mg daily 3. History of CVA and left hemiplegia. 4. Chronic kidney disease with creatinine of 2.0 Transfer out of [facility]. ASHLEY RN and Dr Lucas and case operator Subjective Subjective No CP or SOB.Awaiting transfer to higher level of care for cardiac cath but has insurance issues. Objective Last 24 Hour Vital Signs Date Time Temp Pulse Resp B/P (MAP) Pulse Ox O2 Delivery O2 Flow Rate FiO2 02/24/19 13:00 69 16 119/85 (96) 98 02/24/19 12:19 66 02/24/19 12:00 98.3 63 13 103/64 (77) 98 02/24/19 11:00 68 10 114/73 (87) 97 02/24/19 10:00 72 14 114/79 (91) 99 02/24/19 09:11 131/89 02/24/19 09:10 72 131/89 02/24/19 09:09 131/89 02/24/19 09:00 74 17 131/89 (103) 99 02/24/19 08:00 98.1 65 14 120/86 (97) 99 02/24/19 08:00 Room Air 02/24/19 07:33 72 02/24/19 07:00 74 16 100/62 (75) 02/24/19 06:00 65 14 109/67 (81) 02/24/19 05:00 70 16 96/72 (80) 02/24/19 04:30 59 13 124/77 (93) 96 02/24/19 04:00 Nasal Cannula 2.0 02/24/19 04:00 98.5 70 19 107/82 (90) 98 02/24/19 04:00 80 02/24/19 03:00 67 19 111/88 (96) 98 02/24/19 02:00 66 18 121/87 (98) 99 02/24/19 01:00 71 18 109/65 (80) 99 02/24/19 00:00 Nasal Cannula 2.0 02/24/19 00:00 64 02/24/19 00:00 68 18 105/76 (86) 100 02/23/19 23:30 73 21 113/68 (83) 99 02/23/19 23:15 75 19 112/74 (87) 96 02/23/19 22:30 72 15 89/50 (63) 97 02/23/19 22:15 74 9 99/50 (66) 97 02/23/19 22:00 80 15 84/55 (65) 96 02/23/19 21:49 77 106/56 02/23/19 21:45 82 15 91/46 (61) 97 02/23/19 21:15 77 16 106/56 (73) 99 02/23/19 21:00 74 14 119/66 (83) 100 02/23/19 20:45 77 20 109/68 (82) 98 02/23/19 20:30 98.7 73 16 99/85 (90) 99 02/23/19 20:00 73 02/23/19 20:00 Nasal Cannula 2.0 02/23/19 19:00 80 12 125/76 (92) 100 02/23/19 18:00 73 12 110/65 (80) 100 02/23/19 17:41 127/78 02/23/19 17:00 76 15 113/86 (95) 99 02/23/19 16:00 79 02/23/19 16:00 98.6 75 15 121/89 (100) 100 02/23/19 16:00 Nasal Cannula 2.0 02/23/19 15:00 70 16 130/89 (103) 100 Intake and Output 02/23/19 02/24/19 19:00 07:00 Intake Total 255.14 ml 475.362 ml Output Total 110 ml Balance 145.14 ml 475.362 ml Intake Oral 150 ml 350 ml IV Total 105.14 ml 125.362 ml Output Urine Total 110 ml # Voids 2 1 # Bowel Movements 1 Laboratory Tests Test 02/23/19 16:05 02/23/19 20:00 02/24/19 00:10 02/24/19 08:00 Activated Partial Thromboplast Time > 150 SEC (23-33) *H > 150 SEC (23-33) *H Sodium Level 139 MMOL/L (136-145) 143 MMOL/L (136-145) Potassium Level 3.9 MMOL/L (3.5-5.1) 4.1 MMOL/L (3.5-5.1) Chloride Level 105 MMOL/L (98-107) 107 MMOL/L (98-107) Carbon Dioxide Level 28 MMOL/L (21-32) 27 MMOL/L (21-32) Anion Gap 6 mmol/L (5-15) 10 mmol/L (5-15) Blood Urea Nitrogen 17 mg/dL (7-18) 20 mg/dL (7-18) H Creatinine 2.1 MG/DL (0.55-1.30) H 2.1 MG/DL (0.55-1.30) H Estimat Glomerular Filtration Rate 40.4 mL/min (>60) 40.4 mL/min (>60) Glucose Level 121 MG/DL (74-106) H 99 MG/DL (74-106) Calcium Level 9.1 MG/DL (8.5-10.1) 9.0 MG/DL (8.5-10.1) Total Bilirubin 0.8 MG/DL (0.2-1.0) 0.6 MG/DL (0.2-1.0) Aspartate Amino Transf (AST/SGOT) 33 U/L (15-37) 24 U/L (15-37) Alanine Aminotransferase (ALT/SGPT) 19 U/L (12-78) 20 U/L (12-78) Alkaline Phosphatase 44 U/L (46-116) L 40 U/L (46-116) L Total Protein 7.6 G/DL (6.4-8.2) 7.0 G/DL (6.4-8.2) Albumin 4.0 G/DL (3.4-5.0) 3.9 G/DL (3.4-5.0) Globulin 3.6 g/dL 3.1 g/dL Albumin/Globulin Ratio 1.1 (1.0-2.7) 1.3 (1.0-2.7) Troponin I 4.078 ng/mL (0.000-0.056) White Blood Count 7.0 K/UL (4.8-10.8) Red Blood Count 4.66 M/UL (4.70-6.10) L Hemoglobin 14.2 G/DL (14.2-18.0) Hematocrit 43.4 % (42.0-52.0) Mean Corpuscular Volume 93 FL (80-99) Mean Corpuscular Hemoglobin 30.5 PG (27.0-31.0) Mean Corpuscular Hemoglobin Concent 32.8 G/DL (32.0-36.0) Red Cell Distribution Width 12.9 % (11.6-14.8) Platelet Count 212 K/UL (150-450) Mean Platelet Volume 8.1 FL (6.5-10.1) Neutrophils (%) (Auto) 61.0 % (45.0-75.0) Lymphocytes (%) (Auto) 23.4 % (20.0-45.0) Monocytes (%) (Auto) 8.0 % (1.0-10.0) Eosinophils (%) (Auto) 5.9 % (0.0-3.0) H Basophils (%) (Auto) 1.8 % (0.0-2.0) Pro-B-Type Natriuretic Peptide 180 pg/mL (0-125) H Objective HEAD AND NECK: Showed no JVD or carotid bruits. LUNGS: Clear. CARDIOVASCULAR: Shows regular S1 and S2 with no gallop or murmur. ABDOMEN: Soft. EXTREMITIES: No pitting edema. Dani Gould MD Feb 24, 2019 14:47
--- NOTE | 2019-02-24 15:00 | NUR ---
NURSE NOTES: Dr. Borja at bedside assessing pt. updated him on pt's current condition. Pt received bed at [facility] ([facility]) [phone], however, transfer is on hold at this time, per Dr. Borja. ABILIO Cavazos aware. Pt resting comfortably, denies pain or SOB.
[2019-02-24] MEDS ORDERED: HYDROcodone/Acetamin 10/325 tab ORAL PRN (18:18)
[2019-02-24] MEDS ORDERED: HYDROcodone/Acetamin 5/325 tab ORAL PRN (18:18)
[2019-02-24] MEDS ORDERED: Zolpidem 5mg tab ORAL PRN (18:18)
--- NOTE | 2019-02-24 18:25 | NUR ---
TRANSFER TO FLOOR: Patient transferred to Tele 220-2, per Dr. Gould. Report given to HOLLY Gibson. Belongings kept with patient, at bedside. Patient reported that he will notify family of transfer himself.
--- NOTE | 2019-02-24 18:53 | NUR ---
NURSE NOTES: Pt transfered to the unit, Ox4 calm and cooperative and is aware of what is going on with his transfer, Medicare part B not valid?
--- NOTE | 2019-02-24 19:31 | NUR ---
HAND-OFF: Report given to Yuriy Ontiveros.
--- NOTE | 2019-02-24 19:49 | NUR ---
NURSE NOTES: Received report form Arthur BARRERA, pt. in bed awake, A/O x's4- able to make needs known, no signs or symptoms of acute cardiac or respiratory distress noted, bed alarm on, side rails up x's 3 and safety brakes engaged- pt. aware to ask for assist when ambulating, pt. appears to be resting comfortably in bed watching television- no distress noted, Pt. appears to be clean and dry, RT. wrist 22G IV intact and patent, safety measures continued, will continue with plan of care.
--- NOTE | 2019-02-24 20:00 | Progress Note ---
DATE: 02/24/2019 SUBJECTIVE: The patient is a 54-year-old male who came with possible acute PA and is currently doing better. No chest pain. No palpitation. He is in bed. OBJECTIVE: VITAL SIGNS: Blood pressure is 130/70, pulse 60, respirations 18, no fever. HEENT: NAD. CHEST: Bilaterally clear. CARDIOVASCULAR: Regular rhythm. ABDOMEN: Soft. EXTREMITIES: CCE. NEUROLOGICAL: No focal deficit. ASSESSMENT: 1. Acute coronary syndrome. 2. Renal failure. 3. Hypertension. 4. CVA. PLAN: 1. Continue current treatment. 2. Discussed with , we will transfer him to telemetry. 3. Maximize medical treatment and discharge plan. Wan Lucas M.D. DR: Fanny JOB#: [id number] CC:
[2019-02-24] MEDS ORDERED: cloNIDine 0.2mg Tab ORAL PRN (20:45)
[2019-02-24] MEDS ORDERED: Atorvastatin 80mg tab ORAL SCH (21:00)
[2019-02-25] VITALS: BP 126/82
[2019-02-25 03:56] VITALS: BP 117/79
--- NOTE | 2019-02-25 07:08 | NUR ---
HAND-OFF: Report given to rosalinda RN, pt. remains stable and no sigsn of distress noted.
[2019-02-25 08:00] VITALS: BP 112/72
--- NOTE | 2019-02-25 08:54 | NUR ---
NURSE NOTES:Received report from HOLLY Aviles. Ptient vss with no sign of cardiac or respiratory distress. AOX4 with calm, cooperative affect. Bed in lowest, locked position and patient agreed to call for help oob to toilet. No anticoag orders with recent heparin drip in ICU. Message left for Dr Lucas and Dr Gould at 850am regarding need for anticoag orders.
--- NOTE | 2019-02-25 08:57 | NUR ---
NURSE NOTES: Patient oob with steady gait and denies chest pain / denies any pain. Up to toilet and had formed BM and voided with no discomfort. NSR 73 on tele.
[2019-02-25] MEDS ORDERED: Lisinopril 2.5mg tab ORAL SCH (09:00)
[2019-02-25] MEDS: Metoprolol 25mg tab ORAL SCH (09:00)
[2019-02-25] MEDS ORDERED: Allopurinol 100mg Tab ORAL SCH (09:00)
[2019-02-25] MEDS ORDERED: Cyclobenzaprine 10mg Tab ORAL SCH (09:00)
[2019-02-25] MEDS ORDERED: Aspirin EC 81mg tab ORAL SCH (09:00)
--- NOTE | 2019-02-25 11:17 | Cardiac Electrophysiology PN ---
Assessment/Plan Assessment/Plan 1. Eoq-AQ-snesoprzk myocardial infarction with peak troponin of 4.9. Levels are coming down and patient does not have any chest pain and Echo Nl EF Continue aspirin, Isordil, Lipitor and metoprolol. Cardiac catheterization at [facility] in September 2016 showed no critical coronary artery disease. Troponin elevation at least partially due to renal failure 2. Hypertension. On metoprolol 25 bid, Lisinopril 5 daily and Isordil 5 mg daily 3. History of CVA and left hemiplegia. 4. Chronic kidney disease with creatinine of 2.[address] Lucas and case liner Subjective Subjective No CP or SOB. Awaiting insurance issues. Transferred to tele Objective Last 24 Hour Vital Signs Date Time Temp Pulse Resp B/P (MAP) Pulse Ox O2 Delivery O2 Flow Rate FiO2 02/25/19 09:00 84 130/79 02/25/19 09:00 130/79 02/25/19 09:00 130/79 02/25/19 03:56 97.5 66 16 117/79 (92) 98 02/25/19 03:29 74 02/25/19 00:00 97.5 78 16 126/82 (97) 99 02/24/19 23:29 76 02/24/19 21:00 Room Air 02/24/19 20:09 78 125/75 02/24/19 20:00 86 02/24/19 20:00 98.2 78 16 125/75 (92) 98 02/24/19 18:00 79 13 136/80 (98) 99 79 02/24/19 17:45 120/79 02/24/19 17:00 69 14 120/79 (93) 100 69 02/24/19 16:00 98.4 72 15 120/78 (92) 97 02/24/19 16:00 Room Air 02/24/19 15:35 67 02/24/19 15:00 67 12 119/71 (87) 97 02/24/19 14:00 71 15 97/72 (80) 98 02/24/19 13:00 69 16 119/85 (96) 98 02/24/19 12:19 66 02/24/19 12:00 Room Air 02/24/19 12:00 98.3 63 13 103/64 (77) 98 Intake and Output 02/24/19 02/25/19 19:00 07:00 Intake Total 900 ml Output Total 300 ml Balance 600 ml Intake Oral 900 ml Output Urine Total 300 ml # Voids 3 1 Objective HEAD AND NECK: Showed no JVD or carotid bruits. LUNGS: Clear. CARDIOVASCULAR: Shows regular S1 and S2 with no gallop or murmur. ABDOMEN: Soft. EXTREMITIES: No pitting edema. Dani Gould MD Feb 25, 2019 11:17
[2019-02-25 12:00] VITALS: BP 138/85
--- NOTE | 2019-02-25 13:12 | NUR ---
NURSE NOTE: Spoke with Dr Gould about anticoag therapy--ordered SCD , placed on patient. Spoke with Linda from about possible transfer to a label printer facility--no transfer orders as of now. Still no co chest pain. patient aox4 with calm, cooperative affect. No sign of respiratory or cardiac distress. Call pozo and urinal in reach.
[2019-02-25] MEDS ORDERED: ASPIRIN325 MG ORAL (15:22)
--- NOTE | 2019-02-25 15:26 | NUR ---
NURSE NOTES: patient returned from IR PICC placement to Right arm Addendum: 02/25/19 at 1708 by Greyson Soto RN Above note entered in error--disregard. patient is dced
--- NOTE | 2019-02-25 17:09 | NUR ---
NURSE NOTES: patient discharged per Dr Lucas per telephone order. Reviewed dc forms with patient who had no further questions at time of dc. patient signed belongings chart--verified all belongings with patient at time of dc. Patient ride arrived at 410pm. Removed IV and telemetry. Reviewd meds and f/u appointment with patient. Patient going home without services.
--- NOTE | 2019-02-26 11:43 | Discharge Summary ---
Discharge Summary Discharge Summary _ DATE OF ADMISSION: 02/22/2019 DATE OF DISCHARGE: 02/25/2019 DISCHARGED BY: Dr. Lucas REASON FOR ADMISSION: 54 years old male with past medical history of hypertension, CVA/TIA, spinal fusion, presented with complaint of chest pain with associated shortness of breath for 1 day. Chest pain described as left-sided, pressure-like, nonradiating, 7 out of 10 on a scale 1-10. Patient denied leg swelling. Patient denied alcohol or drug use. Patient reported compliance with his medications. Upon evaluation blood pressure elevated 183/115. Laboratory work-up revealed no leukocytosis, stable hemoglobin and hematocrit. Stable electrolytes. Glucose 101. BUN 12, creatinine 1.7. Stable LFT. EKG revealed normal sinus rhythm, no acute ischemic changes. Troponin negative. pro BNP 213. Chest x-ray revealed no acute cardiopulmonary pathology. Patient subsequently admitted to telemetry floor for further management. CONSULTANTS: floorperson Dr. Pfeiffer [facility]SE: Patient admitted to telemetry floor. Second troponin elevated 2.56 , third troponin 4.44. Echocardiogram revealed preserved ejection fraction 60 to 65% with no evidence of wall motion abnormality. Mild left ventricular hypertrophy. No evidence of pericardial effusion. Right ventricular systolic pressure of 8. Per floorperson patient had NSTEMI with rising troponin from negative to 4.9. Patient started on heparin drip along with antiplatelet therapy with aspirin, Isordil and metoprolol. Patient also started on statin. Patient will require cardiac catheterization for further evaluation of the coronaries, floorperson. Blood pressure was managed with beta-ac , lisinopril. and Isordil . Patient had a prior catheterization in September 2016 that showed no critical coronary artery disease. Chest pain was addressed, and pain was controlled. Patient subsequent denied any chest pain. Troponin level started to come down. Patient wanted to go home and follow-up with floorperson as outpatient. Last troponin 4.07. Per floorperson elevated troponin at least partially was due to renal failure. Patient was advised to follow-up with cardiology as an outpatient for outpatient ischemia evaluation. Renal parameters and electrolytes were closely monitored, electrolytes corrected as needed and nephrotoxins were avoided. Creatinine trended up from 1.7 up to 2.1. Patient remained chest pain-free, no shortness of breath. Pulse oximetry stable on room air prior to the Patient was discharged home. FINAL DIAGNOSES: NSTEMI Hypertension History of CVA with left hemiplegia Chronic kidney disease DISCHARGE MEDICATIONS: See Medication Reconciliation list. DISCHARGE INSTRUCTIONS: Patient was discharged home . Follow up with primary care provider in one week. I have been assigned to dictate discharge summary for this account. I was not involved in the patient's management. Padmaja Wolff NP Feb 26, 2019 11:43
== END 2019-02-25 16:15 | disposition home or self-care (01) | DRG 281 ==
LOC: EMR 19:33 → EDBEDREQ 20:35 → 2E 20:51 → ICU 02-23 09:00 → 2E 02-24 18:26
DX: I21.4 Non-ST elevation (NSTEMI) myocardial infarction (principal); I69.354 Hemiplegia and hemiparesis following cerebral infarction affecting left non-dominant side; N18.9 Chronic kidney disease, unspecified; Z88.8 Allergy status to other drugs, medicaments and biological substances; Z98.1 Arthrodesis status; I12.9 Hypertensive chronic kidney disease with stage 1 through stage 4 chronic kidney disease, or unspecified chronic kidney disease
CPT/HCPCS: 36415; 71045; 80053; 82550; 82553; 83880; 84484; 85025; 85610; 85730; 93005; 93306; 96374; 96375; 96376; 99291

== ENCOUNTER 2019-06-04 18:10 | Emergency (ER) | payer SELFPAY ==
[~2019-06-04] VITALS: Ht 167.6 cm; Wt 83.9 kg
[~2019-06-04 18:10] MED LIST changes: +ASPIRIN325 MG ORAL
--- NOTE | 2019-06-04 18:25 | NUR ---
ED Nurse Note: Patient walked into ED from home c/o substernal chest pain that started all of a sudden 3 hours ago, radiating to his entire back, and left chest. patient is alert awake x4 ambulatory, breathing unlabored and even, speaking in full sentences. patient on a hospital gown, on a quality assurance monitor body.
--- NOTE | 2019-06-04 19:00 | NUR ---
HAND-OFF: Report given to Abdon Caldwell RN.
--- NOTE | 2019-06-04 19:03 | NUR ---
HAND-OFF: Report given to Abdon Caldwell RN.
[2019-06-04 19:05] LABS: BASOPHILS % (AUTO) 1.3 % (0.0-2.0); HEMATOCRIT 40.9 % (42.0-52.0); HEMOGLOBIN 13.6 G/DL (14.2-18.0); LYMPHOCYTES % (AUTO) 25.3 % (20.0-45.0); MEAN CORPUSCULAR VOLUME 94 FL (80-99); MONOCYTES % (AUTO) 6.3 % (1.0-10.0); NEUTROPHILS % (AUTO) 57.1 % (45.0-75.0); PLATELET COUNT 178 K/UL (150-450); RED BLOOD COUNT 4.37 M/UL (4.70-6.10); RED CELL DISTRIBUTION WIDTH 13.3 % (11.6-14.8); WHITE BLOOD COUNT 7.8 K/UL (4.8-10.8)
--- NOTE | 2019-06-04 19:05 | NUR ---
ED Nurse Note: received report from Denise BARRERA. Pt chasiyt, DEE. will continue to monitor patient.
--- NOTE | 2019-06-04 19:05 | Emergency Room Report ---
History of Present Illness General Chief Complaint: Chest Pain Source: Patient Present Illness HPI Patient presents with complaints of right upper lateral chest pain Patient reports that earlier this afternoon while he was reaching across his body with his right arm felt a sharp pain in the right upper chest area there is some radiation towards the back and presents to the ER Denies any vomiting or diarrhea denies any fall or trauma denies any heaviness denies any dyspnea Allergies: Coded Allergies: KETOROLAC (Unverified Adverse Reaction, Intermediate, n/v, 08/11/18) Uncoded Allergies: TORODOL (Allergy, Unknown, 02/25/16) Patient History Past Medical History: see triage record Reviewed Nursing Documentation: PMH: Agreed; PSxH: Agreed Nursing Documentation-PMH Past Medical History: No History, Except For Hx Hypertension: Yes Hx Cancer: No Hx Gastrointestinal Problems: Yes Hx Neurological Problems: Yes - 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) , Neuralgia & neuritis Hx Cerebrovascular Accident: Yes - CVA w/ Lt side weaknedss 2010,2016 Hx Transient Ischemic Attacks: Yes Hx Peripheral Neuropathy: Yes Hx Neurologic Surgery: Yes - Craniotomy at [facility]/ Intracranial hemorrage Review of Systems All Other Systems: negative except mentioned in HPI Physical Exam Vital Signs Date Time Temp Pulse Resp B/P (MAP) Pulse Ox O2 Delivery O2 Flow Rate FiO2 06/04/19 18:17 98.2 102 16 130/72 (91) 95 Room Air Sp02 EP Interpretation: reviewed, normal General Appearance: well appearing, no apparent distress Head: normocephalic, atraumatic Eyes: bilateral eye PERRL, bilateral eye EOMI ENT: hearing grossly normal, normal pharynx, TMs + canals normal, uvula midline Neck: full range of motion, supple, no meningismus, no bony tend Respiratory: lungs clear, normal breath sounds, no rhonchi, no respiratory distress, no retraction, no accessory muscle use Cardiovascular #1: normal peripheral pulses, regular rate, rhythm, no edema, no gallop, no JVD, no murmur Gastrointestinal: normal bowel sounds, non tender, soft, no mass, no organomegaly, non-distended, no guarding, no hernia, no pulsatile mass, no rebound Genitourinary: no CVA tenderness Musculoskeletal: normal inspection Neurologic: motor strength/tone normal, tangled yarn spool straightener III-XII nml as tested, oriented x3 , sensory intact, responsive Psychiatric: mood/affect normal Skin: no rash Lymphatic: normal inspection, no adenopathy Medical Decision Making Diagnostic Impression: Primary Impression: Chest pain ER Course Patient is a fairly complex patient with multiple differential to consideration including but not limited to cardiac cardiopulmonary and vascular emergencies Patient's blood work including troponin are negative contact was made to the patient's primary physician who reports patient has had several Visits to other hospitals and emergency rooms with negative cardiac work-up and at this time patient is stable for close outpatient follow-up Labs Test 06/04/19 18:47 06/04/19 19:10 White Blood Count 7.8 K/UL (4.8-10.8) Red Blood Count 4.37 M/UL (4.70-6.10) Hemoglobin 13.6 G/DL (14.2-18.0) Hematocrit 40.9 % (42.0-52.0) Mean Corpuscular Volume 94 FL (80-99) Mean Corpuscular Hemoglobin 31.2 PG (27.0-31.0) Mean Corpuscular Hemoglobin Concent 33.4 G/DL (32.0-36.0) Red Cell Distribution Width 13.3 % (11.6-14.8) Platelet Count 178 K/UL (150-450) Mean Platelet Volume 9.4 FL (6.5-10.1) Neutrophils (%) (Auto) 57.1 % (45.0-75.0) Lymphocytes (%) (Auto) 25.3 % (20.0-45.0) Monocytes (%) (Auto) 6.3 % (1.0-10.0) Eosinophils (%) (Auto) 10.0 % (0.0-3.0) Basophils (%) (Auto) 1.3 % (0.0-2.0) Sodium Level 143 MMOL/L (136-145) Potassium Level 4.6 MMOL/L (3.5-5.1) Chloride Level 107 MMOL/L (98-107) Carbon Dioxide Level 23 MMOL/L (21-32) Anion Gap 13 mmol/L (5-15) Blood Urea Nitrogen 16 mg/dL (7-18) Creatinine 2.1 MG/DL (0.55-1.30) Estimat Glomerular Filtration Rate 40.4 mL/min (>60) Glucose Level 135 MG/DL (74-106) Calcium Level 8.3 MG/DL (8.5-10.1) Total Bilirubin 0.3 MG/DL (0.2-1.0) Aspartate Amino Transf (AST/SGOT) 25 U/L (15-37) Alanine Aminotransferase (ALT/SGPT) 16 U/L (12-78) Alkaline Phosphatase 50 U/L (46-116) Troponin I 0.000 ng/mL (0.000-0.056) Pro-B-Type Natriuretic Peptide 116 pg/mL (0-125) Total Protein 7.4 G/DL (6.4-8.2) Albumin 3.9 G/DL (3.4-5.0) Globulin 3.5 g/dL Albumin/Globulin Ratio 1.1 (1.0-2.7) Lipase 150 U/L (73-393) Urine Opiates Screen Negative (NEGATIVE) Urine Barbiturates Screen Negative (NEGATIVE) Phencyclidine (PCP) Screen Negative (NEGATIVE) Urine Amphetamines Screen Negative (NEGATIVE) Urine Benzodiazepines Screen Negative (NEGATIVE) Urine Cocaine Screen Negative (NEGATIVE) Urine Marijuana (THC) Screen Positive (NEGATIVE) EKG Diagnostic Results Rate: normal Rhythm: NSR ST Segments: other - Specific ST and T wave changes Rhythm Strip Diag. Results EP Interpretation: yes Rate: 78 Rhythm: NSR, no PVC's, no ectopy Chest X-Ray Diagnostic Results Chest X-Ray Diagnostic Results : Chest X-Ray Ordered: Yes # of Views/Limited/Complete: 1 View Indication: Chest Pain EP Interpretation: Yes Interpretation: no consolidation, no effusion, no pneumothorax Impression: No acute disease Electronically Signed by: Klever Krueger DO Last Vital Signs Date Time Temp Pulse Resp B/P (MAP) Pulse Ox O2 Delivery O2 Flow Rate FiO2 06/04/19 18:53 98 19 Room Air 06/04/19 18:17 98.2 130/72 (91) 95 Status: improved Disposition: HOME, SELF-CARE Condition: Improved Scripts Acetaminophen (Tylenol) 325 Mg Tablet 650 MG ORAL Q12HR PRN for Prn Pain/Headache/Temp > 101, #20 TAB 0 Refills Prov: Klever Krueger DO 06/04/19 Additional Instructions: Patient is provided with the discharge instructions notified to follow up with primary doctor in the next 2-3 days otherwise return to the er with any worsening symptoms. Please note that this report is being documented using DRAGON technology. This can lead to erroneous entry secondary to incorrect interpretation by the dictating instrument. Klever Krueger DO Jun 04, 2019 19:04
[2019-06-04] MEDS ORDERED: Morphine Sulfate 4mg/ml Inj (IV USE ONLY) IVP ONE (19:15)
[2019-06-04 19:27] VITALS: BP 109/76
[2019-06-04 19:28] LABS: ANION GAP 13 mmol/L (5-15); BLOOD UREA NITROGEN 16 mg/dL (7-18); CALCIUM 8.3 MG/DL (8.5-10.1); CARBON DIOXIDE 23 MMOL/L (21-32); CHLORIDE 107 MMOL/L (98-107); CREATININE 2.1 MG/DL (0.55-1.30); POTASSIUM 4.6 MMOL/L (3.5-5.1); SODIUM 143 MMOL/L (136-145)
[2019-06-04 19:38] LABS: ALANINE AMINOTRANSFERASE 16 U/L (12-78); ALBUMIN 3.9 G/DL (3.4-5.0); ALBUMIN/GLOBULIN RATIO 1.1 (1.0-2.7); ALKALINE PHOSPHATASE 50 U/L (46-116); ASPARTATE AMINO TRANSFERASE 25 U/L (15-37); BILIRUBIN,TOTAL 0.3 MG/DL (0.2-1.0)
[2019-06-04] MEDS ORDERED: TYLENOL325 MG ORAL (20:49)
[2019-06-04 20:55] VITALS: BP 131/68
--- NOTE | 2019-06-05 09:52 | Diagnostic Imaging Report ---
Indication: Chest pain Technique: One view of the chest Comparison: 02/22/2019 Findings: Low lung volumes. Lungs pleural spaces are clear. Heart size is normal. There is cervical spine fusion hardware incidentally noted No significant interim change Impression: No acute process
== END 2019-06-04 20:55 | disposition home or self-care (01) ==
LOC: EMR 20:55
DX: R07.9 Chest pain, unspecified (principal); Z88.8 Allergy status to other drugs, medicaments and biological substances; I10 Essential (primary) hypertension; Z98.1 Arthrodesis status; G81.94 Hemiplegia, unspecified affecting left nondominant side; G62.9 Polyneuropathy, unspecified
CPT/HCPCS: 36415; 71045; 80053; 80307; 83690; 83880; 84484; 85025; 96374; 96375; 99284; J2270; J2405

== ENCOUNTER 2019-07-07 21:06 | Inpatient (IN) | payer MEDICARE ==
[~2019-07-07] VITALS: Ht 167.6 cm; Wt 86.7 kg
[~2019-07-07 21:06] MED LIST changes: +TYLENOL325 MG ORAL
--- NOTE | 2019-07-07 21:20 | Emergency Room Report ---
History of Present Illness General Chief Complaint: Chest pain Source: Patient Present Illness HPI 54-year-old male history of stroke history of spinal fusion history of hypertension history of craniotomy history of tracheostomy presents with chest pain that started at 5 PM aggravated with exertion alleviated with rest severity is moderate, constant, feels a sharp pain patient also endorses some shortness of breath patient presents for evaluation Allergies: Coded Allergies: KETOROLAC (Unverified Adverse Reaction, Intermediate, n/v, 08/11/18) Uncoded Allergies: TORODOL (Allergy, Unknown, 02/25/16) Patient History Past Medical History: see triage record Reviewed Nursing Documentation: PMH: Agreed; PSxH: Agreed Nursing Documentation-PMH Hx Hypertension: Yes Hx Cancer: No Hx Gastrointestinal Problems: Yes Hx Neurological Problems: Yes - 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) , Neuralgia & neuritis Hx Cerebrovascular Accident: Yes - CVA w/ Lt side weaknedss 2010,2016 Hx Transient Ischemic Attacks: Yes Hx Peripheral Neuropathy: Yes Hx Neurologic Surgery: Yes - Craniotomy at [facility]/ Intracranial hemorrage Review of Systems All Other Systems: negative except mentioned in HPI Physical Exam Sp02 EP Interpretation: reviewed, normal General Appearance: well appearing, no apparent distress, alert Head: normocephalic, atraumatic Eyes: bilateral eye PERRL, bilateral eye EOMI ENT: uvula midline, moist mucus membranes Neck: supple, thyroid normal, supple/symm/no masses Respiratory: lungs clear, no respiratory distress, no retraction, no accessory muscle use Cardiovascular #1: normal peripheral pulses, regular rate, rhythm, no edema, no gallop, no murmur Gastrointestinal: non tender, soft, no guarding, no rebound Musculoskeletal: normal inspection Neurologic: alert, oriented x3 Psychiatric: mood/affect normal Skin: no rash, warm/dry Medical Decision Making Diagnostic Impression: Primary Impression: Chest pain Qualified Codes: R07.9 - Chest pain, unspecified ER Course 54-year-old male presents with chest pain concerning for possible ACS differential diagnosis includes pneumonia, dissection Patient most likely with ACS will provide patient with aspirin, nitro Patient admitted to [facility]. Laboratory Tests Test 07/07/19 21:25 White Blood Count 8.0 K/UL (4.8-10.8) Red Blood Count 4.84 M/UL (4.70-6.10) Hemoglobin 14.4 G/DL (14.2-18.0) Hematocrit 45.9 % (42.0-52.0) Mean Corpuscular Volume 95 FL (80-99) Mean Corpuscular Hemoglobin 29.8 PG (27.0-31.0) Mean Corpuscular Hemoglobin Concent 31.4 G/DL (32.0-36.0) L Red Cell Distribution Width 14.6 % (11.6-14.8) Platelet Count 200 K/UL (150-450) Mean Platelet Volume 9.6 FL (6.5-10.1) Neutrophils (%) (Auto) 56.0 % (45.0-75.0) Lymphocytes (%) (Auto) 25.3 % (20.0-45.0) Monocytes (%) (Auto) 7.0 % (1.0-10.0) Eosinophils (%) (Auto) 9.5 % (0.0-3.0) H Basophils (%) (Auto) 2.2 % (0.0-2.0) H Prothrombin Time 10.7 SEC (9.30-11.50) Prothrombin Time INR 1.0 (0.9-1.1) Activated Partial Thromboplast Time 28 SEC (23-33) Sodium Level 144 MMOL/L (136-145) Potassium Level 4.0 MMOL/L (3.5-5.1) Chloride Level 106 MMOL/L (98-107) Carbon Dioxide Level 21 MMOL/L (21-32) Anion Gap 17 mmol/L (5-15) H Blood Urea Nitrogen 12 mg/dL (7-18) Creatinine 1.7 MG/DL (0.55-1.30) H Estimate Glomerular Filtration Rate 51.5 mL/min (>60) Glucose Level 89 MG/DL (74-106) Calcium Level 9.4 MG/DL (8.5-10.1) Total Bilirubin 0.5 MG/DL (0.2-1.0) Aspartate Amino Transferase (AST) 15 U/L (15-37) Alanine Aminotransferase (ALT) 20 U/L (12-78) Alkaline Phosphatase 48 U/L (46-116) Troponin I 0.012 ng/mL (0.000-0.056) Pro-B-Type Natriuretic Peptide 143 pg/mL (0-125) H Total Protein 7.6 G/DL (6.4-8.2) Albumin 4.4 G/DL (3.4-5.0) Globulin 3.2 g/dL Albumin/Globulin Ratio 1.4 (1.0-2.7) Lipase 223 U/L (73-393) EKG Diagnostic Results EKG Time: 21:16 EP Interpretation: NSR, rate 66, QTc 438, no acute ST elevations, left axis deviation Rhythm Strip Diag. Results Rhythm Strip Time: 21:19 EP Interpretation: yes Rate: 85 Rhythm: NSR, no PVC's, no ectopy Chest X-Ray Diagnostic Results Chest X-Ray Diagnostic Results : Chest X-Ray Ordered: Yes # of Views/Limited/Complete: 1 View Indication: Chest Pain EP Interpretation: Yes Interpretation: no consolidation, no effusion, no pneumothorax, no acute cardiopulmonary disease Impression: No acute disease Electronically Signed by: Patrick Ott MD Disposition: ADMITTED INPATIENT Condition: Stable Patrick Ott MD Jul 07, 2019 21:20
[2019-07-07 21:25] VITALS: BP 163/106
[2019-07-07] MEDS ORDERED: Nitroglycerin 2% oint pkt TOPIC ONE (21:30)
[2019-07-07] MEDS ORDERED: Omnipaque 350 100ml vial INJ PRN ×2 (21:30)
[2019-07-07] MEDS ORDERED: fentaNYL 100 mcg/2 mL IV ONE ×2 (21:45→23:45)
[2019-07-07 21:49] LABS: BASOPHILS % (AUTO) 2.2 % (0.0-2.0); EOSINOPHILS % (AUTO) 9.5 % (0.0-3.0); HEMATOCRIT 45.9 % (42.0-52.0); HEMOGLOBIN 14.4 G/DL (14.2-18.0); LYMPHOCYTES % (AUTO) 25.3 % (20.0-45.0); MEAN CORPUSCULAR VOLUME 95 FL (80-99); PLATELET COUNT 200 K/UL (150-450); RED BLOOD COUNT 4.84 M/UL (4.70-6.10); RED CELL DISTRIBUTION WIDTH 14.6 % (11.6-14.8)
[2019-07-07 22:02] LABS: ANION GAP 17 mmol/L (5-15); BLOOD UREA NITROGEN 12 mg/dL (7-18); CALCIUM 9.4 MG/DL (8.5-10.1); CARBON DIOXIDE 21 MMOL/L (21-32); CHLORIDE 106 MMOL/L (98-107); CREATININE 1.7 MG/DL (0.55-1.30); SODIUM 144 MMOL/L (136-145)
[2019-07-07 22:10] VITALS: BP 155/96
[2019-07-07 22:13] LABS: ALANINE AMINOTRANSFERASE 20 U/L (12-78); ALBUMIN 4.4 G/DL (3.4-5.0); ALBUMIN/GLOBULIN RATIO 1.4 (1.0-2.7); ALKALINE PHOSPHATASE 48 U/L (46-116); ASPARTATE AMINO TRANSFERASE 15 U/L (15-37); BILIRUBIN,TOTAL 0.5 MG/DL (0.2-1.0)
[2019-07-07] MEDS ORDERED: LORazepam Inj 2mg/ml 1ml IV PRN (22:30)
[2019-07-07] MEDS ORDERED: Nitroglycerin Subl 0.4mg tab SL PRN (22:30)
[2019-07-07] MEDS ORDERED: DiphenhydrAMINE 25mg Tab ORAL PRN (22:30)
[2019-07-07] MEDS ORDERED: Hydromorphone 0.5mg/0.5ml inj IVP PRN (22:30)
[2019-07-07] MEDS ORDERED: Mylanta II UD 30ml ORAL PRN (22:30)
[2019-07-07 23:45] VITALS: BP 160/92
[2019-07-08] VITALS: BP 141/93
[2019-07-08] MEDS: HYDROmorphone 1mg/ml Carpuject IVP PRN ×5 (01:00→20:21)
[2019-07-08 04:00] VITALS: BP 144/91
[2019-07-08 05:34] LABS: BASOPHILS % (AUTO) 1.1 % (0.0-2.0); EOSINOPHILS % (AUTO) 11.1 % (0.0-3.0); HEMATOCRIT 42.1 % (42.0-52.0); HEMOGLOBIN 14.1 G/DL (14.2-18.0); LYMPHOCYTES % (AUTO) 32.1 % (20.0-45.0); MEAN CORPUSCULAR VOLUME 93 FL (80-99); MONOCYTES % (AUTO) 7.1 % (1.0-10.0); NEUTROPHILS % (AUTO) 48.6 % (45.0-75.0); PLATELET COUNT 176 K/UL (150-450); RED BLOOD COUNT 4.51 M/UL (4.70-6.10); RED CELL DISTRIBUTION WIDTH 13.8 % (11.6-14.8); WHITE BLOOD COUNT 6.7 K/UL (4.8-10.8)
[2019-07-08 05:54] LABS: ANION GAP 14 mmol/L (5-15); BLOOD UREA NITROGEN 9 mg/dL (7-18); CALCIUM 8.6 MG/DL (8.5-10.1); CARBON DIOXIDE 22 MMOL/L (21-32); CHLORIDE 107 MMOL/L (98-107); CREATININE 1.6 MG/DL (0.55-1.30); POTASSIUM 3.4 MMOL/L (3.5-5.1); SODIUM 142 MMOL/L (136-145)
[2019-07-08 08:00] VITALS: BP 147/84
--- NOTE | 2019-07-08 08:38 | Consultation ---
History of Present Illness General Chief Complaint: Chest Pain Reason for Consultation: Mera Present Illness HPI This is a 54 year old male with hx of recurrent chest pain (no CAD on cath in 2017), HTN, gout, presenting with chest pain that started yesterday. He reports resting at home around 5:30PM when he suddenly felt chest pain that self resolved after 2 minutes. radiated to the back and left arm. Reports similar pain previously, but this time "it was much worse." denies any fever, chills, SOB, n/v. He says he tried nitroglycerin previously but did not help with his "chest pain" episodes. Currently resting in bed, no issues. Had a chest pain around 3AM, that also lasted ~2 minutes Allergies: Coded Allergies: KETOROLAC (Unverified Adverse Reaction, Intermediate, n/v, 08/11/18) Uncoded Allergies: TORODOL (Allergy, Unknown, 02/25/16) Medication History Scheduled Allopurinol* (Allopurinol*), 100 MG ORAL DAILY, (Reported) Amlodipine Besylate* (Amlodipine Besylate*), 2.5 MG ORAL DAILY, (Reported) Aspirin* (Aspirin*), 325 MG ORAL DAILY, (Reported) Gabapentin* (Gabapentin*), 800 MG ORAL THREE TIMES A DAY, (Reported) Isosorbide Dinitrate (Isosorbide Dinitrate*), 5 MG ORAL DAILY Lisinopril (Lisinopril*), Unknown Dose ORAL DAILY, (Reported) Omeprazole (Omeprazole), 20 MG PO DAILY, (Reported) Scheduled PRN Acetaminophen (Tylenol), 650 MG ORAL Q12HR PRN for Prn Pain/Headache/Temp > 101 Clonidine Hcl* (Catapres*), 0.1 MG ORAL DAILY PRN for For High Blood Pressure, ( Reported) Patient History Healthcare decision maker Resuscitation status Advanced Directive on File Review of Systems Eye: Reports: no symptoms Respiratory: Reports: shortness of breath Cardiovascular: Reports: chest pain Gastrointestinal: Reports: no symptoms Genitourinary: Reports: no symptoms Skin: Reports: no symptoms Psychiatric: Reports: no symptoms Neurological: Reports: no symptoms Endocrine: Reports: no symptoms Physical Exam Last 24 Hour Vital Signs Date Time Temp Pulse Resp B/P (MAP) Pulse Ox O2 Delivery O2 Flow Rate FiO2 07/08/19 08:00 97.5 64 18 147/84 (105) 98 07/08/19 06:41 97.2 07/08/19 04:00 70 07/08/19 04:00 97.2 66 18 144/91 (108) 97 07/08/19 01:54 Room Air 07/08/19 01:14 Room Air 07/08/19 00:00 80 07/08/19 00:00 97.0 75 16 141/93 (109) 98 07/07/19 23:45 97.2 82 17 160/92 100 Room Air 07/07/19 23:45 97.2 82 17 160/92 100 Room Air 07/07/19 23:43 180/100 07/07/19 22:31 97.2 07/07/19 22:10 97.2 78 16 155/96 100 Room Air 07/07/19 21:30 160/95 07/07/19 21:25 97.2 80 17 163/106 100 Room Air 07/07/19 21:25 66 17 Room Air 07/07/19 21:15 97.2 66 17 163/106 (125) 100 Room Air Intake and Output 07/07/19 07/08/19 19:00 07:00 Intake Total 1000 ml Balance 1000 ml Intake IV Total 1000 ml # Voids 1 # Bowel Movements 2 Laboratory Tests Test 07/07/19 21:25 07/07/19 23:30 07/08/19 04:00 White Blood Count 8.0 K/UL (4.8-10.8) 6.7 K/UL (4.8-10.8) Red Blood Count 4.84 M/UL (4.70-6.10) 4.51 M/UL (4.70-6.10) L Hemoglobin 14.4 G/DL (14.2-18.0) 14.1 G/DL (14.2-18.0) L Hematocrit 45.9 % (42.0-52.0) 42.1 % (42.0-52.0) Mean Corpuscular Volume 95 FL (80-99) 93 FL (80-99) Mean Corpuscular Hemoglobin 29.8 PG (27.0-31.0) 31.2 PG (27.0-31.0) H Mean Corpuscular Hemoglobin Concent 31.4 G/DL (32.0-36.0) L 33.4 G/DL (32.0-36.0) Red Cell Distribution Width 14.6 % (11.6-14.8) 13.8 % (11.6-14.8) Platelet Count 200 K/UL (150-450) 176 K/UL (150-450) Mean Platelet Volume 9.6 FL (6.5-10.1) 8.6 FL (6.5-10.1) Neutrophils (%) (Auto) 56.0 % (45.0-75.0) 48.6 % (45.0-75.0) Lymphocytes (%) (Auto) 25.3 % (20.0-45.0) 32.1 % (20.0-45.0) Monocytes (%) (Auto) 7.0 % (1.0-10.0) 7.1 % (1.0-10.0) Eosinophils (%) (Auto) 9.5 % (0.0-3.0) H 11.1 % (0.0-3.0) H Basophils (%) (Auto) 2.2 % (0.0-2.0) H 1.1 % (0.0-2.0) Prothrombin Time 10.7 SEC (9.30-11.50) Prothromb Time International Ratio 1.0 (0.9-1.1) Activated Partial Thromboplast Time 28 SEC (23-33) Sodium Level 144 MMOL/L (136-145) 142 MMOL/L (136-145) Potassium Level 4.0 MMOL/L (3.5-5.1) 3.4 MMOL/L (3.5-5.1) L Chloride Level 106 MMOL/L (98-107) 107 MMOL/L (98-107) Carbon Dioxide Level 21 MMOL/L (21-32) 22 MMOL/L (21-32) Anion Gap 17 mmol/L (5-15) H 14 mmol/L (5-15) Blood Urea Nitrogen 12 mg/dL (7-18) 9 mg/dL (7-18) Creatinine 1.7 MG/DL (0.55-1.30) H 1.6 MG/DL (0.55-1.30) H Estimat Glomerular Filtration Rate 51.5 mL/min (>60) 55.3 mL/min (>60) Glucose Level 89 MG/DL (74-106) 115 MG/DL (74-106) H Calcium Level 9.4 MG/DL (8.5-10.1) 8.6 MG/DL (8.5-10.1) Total Bilirubin 0.5 MG/DL (0.2-1.0) Aspartate Amino Transf (AST/SGOT) 15 U/L (15-37) Alanine Aminotransferase (ALT/SGPT) 20 U/L (12-78) Alkaline Phosphatase 48 U/L (46-116) Troponin I 0.012 ng/mL (0.000-0.056) 0.012 ng/mL (0.000-0.056) Pro-B-Type Natriuretic Peptide 143 pg/mL (0-125) H Total Protein 7.6 G/DL (6.4-8.2) Albumin 4.4 G/DL (3.4-5.0) Globulin 3.2 g/dL Albumin/Globulin Ratio 1.4 (1.0-2.7) Lipase 223 U/L (73-393) Urine Opiates Screen Negative (NEGATIVE) Urine Barbiturates Screen Negative (NEGATIVE) Phencyclidine (PCP) Screen Negative (NEGATIVE) Urine Amphetamines Screen Negative (NEGATIVE) Urine Benzodiazepines Screen Negative (NEGATIVE) Urine Cocaine Screen Negative (NEGATIVE) Urine Marijuana (THC) Screen Positive (NEGATIVE) H Height (Feet): 5 Height (Inches): 6.00 Weight (Pounds): 187 Medications Current Medications Medications (Trade) Dose Ordered Sig/Mahsa Route PRN Reason Start Time Stop Time Status Last Admin Dose Admin Acetaminophen (Tylenol) 650 mg Q4H PRN ORAL Mild Pain (Pain Scale 1-3) 07/07/19 22:30 08/06/19 22:29 Al Hydroxide/Mg Hydroxide (Mylanta II) 30 ml Q6H PRN ORAL dyspepsia 07/07/19 22:30 08/06/19 22:29 Allopurinol (Zyloprim) 100 mg DAILY ORAL 07/08/19 09:00 08/07/19 08:59 Amlodipine Besylate (Norvasc) 2.5 mg DAILY ORAL 07/08/19 09:00 08/07/19 08:59 Aspirin (ASA) 81 mg DAILY ORAL 07/08/19 09:00 08/07/19 08:59 Dextrose (Dextrose 50%) 25 ml Q30M PRN IV Hypoglycemia 07/07/19 22:30 08/06/19 22:29 Dextrose (Dextrose 50%) 50 ml Q30M PRN IV Hypoglycemia 07/07/19 22:30 08/06/19 22:29 Diphenhydramine HCl (Benadryl) 25 mg Q6H PRN ORAL Itching/Pruritis 07/07/19 22:30 08/06/19 22:29 Docusate Sodium (Colace) 100 mg EVERY 12 HOURS ORAL 07/08/19 09:00 08/07/19 08:59 Gabapentin (Neurontin) 800 mg TID ORAL 07/08/19 09:00 08/07/19 08:59 Heparin Sodium (Porcine) (Heparin 5000 units/ml) 5,000 units EVERY 12 HOURS SUBQ 07/08/19 09:00 08/07/19 08:59 Hydromorphone HCl (Dilaudid) 0.5 mg Q4H PRN IVP Moderate Pain (Pain Scale 4-6) 07/07/19 22:30 07/14/19 22:29 Hydromorphone HCl (Dilaudid) 1 mg Q4H PRN IVP Severe Pain (Pain Scale 7-10) 07/07/19 22:30 07/14/19 22:29 07/08/19 06:11 Iohexol (Omnipaque 350 100ml) 100 ml NOW PRN INJ Radiology Procedure 07/07/19 21:30 07/09/19 21:20 Iohexol (Omnipaque 350 100ml) 100 ml NOW PRN INJ Radiology Procedure 07/07/19 21:30 07/09/19 21:20 Isosorbide Mononitrate (Imdur) 30 mg DAILY ORAL 07/08/19 09:00 08/07/19 08:59 Lorazepam (Ativan 2mg/ml 1ml) 0.5 mg Q4H PRN IV For Anxiety 07/07/19 22:30 07/14/19 22:29 Nitroglycerin (Ntg) 0.4 mg Q5M PRN SL Prn Chest Pain 07/07/19 22:30 08/06/19 22:29 Ondansetron HCl (Zofran) 4 mg Q6H PRN IVP Nausea & Vomiting 07/07/19 22:30 08/06/19 22:29 Pantoprazole (Protonix) 40 mg DAILY ORAL 07/08/19 09:00 08/07/19 08:59 Objective Narrative General Appearance: no apparent distress, alert HEENT: normocephalic, atraumatic Neck: supple Respiratory/Chest: lungs clear, normal breath sounds, no respiratory distress Cardiovascular/Chest: normal rate, regular rhythm Abdomen: non tender, soft Neurologic: alert, oriented x 3 Assessment/Plan Diagnosis [place] I: #MERA on CKD #hypokalemia #Chest pain r/o ACS #HTN # gout #h/o spinal fusion # history of craniotomy #history of tracheostomy -s/p 1L NS on presentation - replete k - Check uA - UTp/cr - hold lisinopril - renal US - check uric acid level in am - monitor BP - monitor BMP - 2d echo - stress test per cardiology Jonathan Sanchez M.D. Jul 08, 2019 08:38
[2019-07-08] MEDS: Allopurinol 100mg Tab ORAL SCH (08:49)
[2019-07-08] MEDS: Docusate 100mg cap ORAL SCH ×2 (08:49→20:21)
[2019-07-08] MEDS: Imdur 30mg tab ORAL SCH (08:49)
[2019-07-08] MEDS: Aspirin Baby 81mg ORAL SCH (08:50)
[2019-07-08] MEDS: Heparin 5000 units/ml inj SUBQ SCH ×2 (08:51→20:23)
[2019-07-08] MEDS ORDERED: Lisinopril 2.5mg tab ORAL SCH (09:00)
--- NOTE | 2019-07-08 10:32 | Cardiac Electrophysiology PN ---
Subjective Subjective CP. No CO. Cardiac cath at [facility] no CAD in 2017 Will get stat Echo and stress test [id number] Objective Last 24 Hour Vital Signs Date Time Temp Pulse Resp B/P (MAP) Pulse Ox O2 Delivery O2 Flow Rate FiO2 07/08/19 09:00 Room Air 07/08/19 08:50 64 147/84 07/08/19 08:49 147/84 07/08/19 08:00 75 07/08/19 08:00 97.5 64 18 147/84 (105) 98 07/08/19 06:41 97.2 07/08/19 04:00 70 07/08/19 04:00 97.2 66 18 144/91 (108) 97 07/08/19 01:54 Room Air 07/08/19 01:14 Room Air 07/08/19 00:00 80 07/08/19 00:00 97.0 75 16 141/93 (109) 98 07/07/19 23:45 97.2 82 17 160/92 100 Room Air 07/07/19 23:45 97.2 82 17 160/92 100 Room Air 07/07/19 23:43 180/100 07/07/19 22:31 97.2 07/07/19 22:10 97.2 78 16 155/96 100 Room Air 07/07/19 21:30 160/95 07/07/19 21:25 97.2 80 17 163/106 100 Room Air 07/07/19 21:25 66 17 Room Air 07/07/19 21:15 97.2 66 17 163/106 (125) 100 Room Air Intake and Output 07/07/19 07/08/19 19:00 07:00 Intake Total 1000 ml Balance 1000 ml Intake IV Total 1000 ml # Voids 1 # Bowel Movements 2 Laboratory Tests Test 07/07/19 21:25 07/07/19 23:30 07/08/19 04:00 White Blood Count 8.0 K/UL (4.8-10.8) 6.7 K/UL (4.8-10.8) Red Blood Count 4.84 M/UL (4.70-6.10) 4.51 M/UL (4.70-6.10) L Hemoglobin 14.4 G/DL (14.2-18.0) 14.1 G/DL (14.2-18.0) L Hematocrit 45.9 % (42.0-52.0) 42.1 % (42.0-52.0) Mean Corpuscular Volume 95 FL (80-99) 93 FL (80-99) Mean Corpuscular Hemoglobin 29.8 PG (27.0-31.0) 31.2 PG (27.0-31.0) H Mean Corpuscular Hemoglobin Concent 31.4 G/DL (32.0-36.0) L 33.4 G/DL (32.0-36.0) Red Cell Distribution Width 14.6 % (11.6-14.8) 13.8 % (11.6-14.8) Platelet Count 200 K/UL (150-450) 176 K/UL (150-450) Mean Platelet Volume 9.6 FL (6.5-10.1) 8.6 FL (6.5-10.1) Neutrophils (%) (Auto) 56.0 % (45.0-75.0) 48.6 % (45.0-75.0) Lymphocytes (%) (Auto) 25.3 % (20.0-45.0) 32.1 % (20.0-45.0) Monocytes (%) (Auto) 7.0 % (1.0-10.0) 7.1 % (1.0-10.0) Eosinophils (%) (Auto) 9.5 % (0.0-3.0) H 11.1 % (0.0-3.0) H Basophils (%) (Auto) 2.2 % (0.0-2.0) H 1.1 % (0.0-2.0) Prothrombin Time 10.7 SEC (9.30-11.50) Prothromb Time International Ratio 1.0 (0.9-1.1) Activated Partial Thromboplast Time 28 SEC (23-33) Sodium Level 144 MMOL/L (136-145) 142 MMOL/L (136-145) Potassium Level 4.0 MMOL/L (3.5-5.1) 3.4 MMOL/L (3.5-5.1) L Chloride Level 106 MMOL/L (98-107) 107 MMOL/L (98-107) Carbon Dioxide Level 21 MMOL/L (21-32) 22 MMOL/L (21-32) Anion Gap 17 mmol/L (5-15) H 14 mmol/L (5-15) Blood Urea Nitrogen 12 mg/dL (7-18) 9 mg/dL (7-18) Creatinine 1.7 MG/DL (0.55-1.30) H 1.6 MG/DL (0.55-1.30) H Estimat Glomerular Filtration Rate 51.5 mL/min (>60) 55.3 mL/min (>60) Glucose Level 89 MG/DL (74-106) 115 MG/DL (74-106) H Calcium Level 9.4 MG/DL (8.5-10.1) 8.6 MG/DL (8.5-10.1) Total Bilirubin 0.5 MG/DL (0.2-1.0) Aspartate Amino Transf (AST/SGOT) 15 U/L (15-37) Alanine Aminotransferase (ALT/SGPT) 20 U/L (12-78) Alkaline Phosphatase 48 U/L (46-116) Troponin I 0.012 ng/mL (0.000-0.056) 0.012 ng/mL (0.000-0.056) Pro-B-Type Natriuretic Peptide 143 pg/mL (0-125) H Total Protein 7.6 G/DL (6.4-8.2) Albumin 4.4 G/DL (3.4-5.0) Globulin 3.2 g/dL Albumin/Globulin Ratio 1.4 (1.0-2.7) Lipase 223 U/L (73-393) Urine Opiates Screen Negative (NEGATIVE) Urine Barbiturates Screen Negative (NEGATIVE) Phencyclidine (PCP) Screen Negative (NEGATIVE) Urine Amphetamines Screen Negative (NEGATIVE) Urine Benzodiazepines Screen Negative (NEGATIVE) Urine Cocaine Screen Negative (NEGATIVE) Urine Marijuana (THC) Screen Positive (NEGATIVE) Dani Jo MD Jul 08, 2019 10:32
[2019-07-08] MEDS ORDERED: Lexiscan 0.4mg/5ml syringe IV PRN (10:45)
--- NOTE | 2019-07-08 11:50 | History and Physical ---
History of Present Illness General Date patient seen: Jul 08, 2019 Time patient seen: 08:30 Reason for Hospitalization: Chest Pain Present Illness HPI Mr. Hoffmann is a 54 year old male with hx of recurrent chest pain (no CAD on cath in 2017), HTN, gout, presenting with chest pain that started yesterday. He reports resting at home around 5:30PM when he suddenly felt chest pain that self resolved after 2 minutes. radiated to the back and left arm. Reports similar pain previously, but this time "it was much worse." denies any fever, chills, SOB, n/v. He says he tried nitroglycerin previously but did not help with his "chest pain" episodes. Currently resting in bed, no issues. Had a chest pain around 3AM, that also lasted ~2 minutes Allergies: Coded Allergies: KETOROLAC (Unverified Adverse Reaction, Intermediate, n/v, 08/11/18) Uncoded Allergies: TORODOL (Allergy, Unknown, 02/25/16) Medication History Scheduled Allopurinol* (Allopurinol*), 100 MG ORAL DAILY, (Reported) Amlodipine Besylate* (Amlodipine Besylate*), 2.5 MG ORAL DAILY, (Reported) Aspirin* (Aspirin*), 325 MG ORAL DAILY, (Reported) Gabapentin* (Gabapentin*), 800 MG ORAL THREE TIMES A DAY, (Reported) Isosorbide Dinitrate (Isosorbide Dinitrate*), 5 MG ORAL DAILY Lisinopril (Lisinopril*), Unknown Dose ORAL DAILY, (Reported) Omeprazole (Omeprazole), 20 MG PO DAILY, (Reported) Scheduled PRN Acetaminophen (Tylenol), 650 MG ORAL Q12HR PRN for Prn Pain/Headache/Temp > 101 Clonidine Hcl* (Catapres*), 0.1 MG ORAL DAILY PRN for For High Blood Pressure, ( Reported) Patient History Healthcare decision maker Resuscitation status Advanced Directive on File Review of Systems Constitutional: Denies: no symptoms, see HPI, chills, sweats, fever, malaise, weakness, other Eye: Denies: no symptoms, see HPI, eye pain, blurred vision, tearing, double vision, nose pain, nose congestion, acuity changes, discharge, other ENT: Denies: no symptoms, see HPI, ear pain, ear discharge, nose pain, nose congestion, throat pain, throat swelling, mouth pain, hearing loss, nasal discharge, other Respiratory: Denies: no symptoms, see HPI, cough, orthopnea, shortness of breath, stridor, wheezing, [place], sputum, other Cardiovascular: Reports: chest pain Gastrointestinal: Denies: no symptoms, see HPI, abdominal pain, constipation, diarrhea, nausea, vomiting, melena, hematemesis, other Genitourinary: Denies: no symptoms, see HPI, discharge, dysuria, frequency, hematuria, pain, retention, incontinence, urgency, vag bleed/dc, other Musculoskeletal: Denies: no symptoms, see HPI, back pain, gout, joint pain, joint swelling, muscle pain, muscle stiffness, other Skin: Denies: no symptoms, see HPI, rash, change in color, change in hair/nails , dryness, lesions, other Psychiatric: Denies: no symptoms, see HPI, prior hx, anxiety, depressed feelings, emotional problems, SI, HI, hallucinations, other Neurological: Denies: no symptoms, see HPI, headache, numbness, paresthesia, seizure, tingling, tremors, focal weakness, syncope, dizziness, other Endocrine: Denies: no symptoms, see HPI, excessive sweating, flushing, intolerance to temperature, increased thirst, increased urine, unexplained weight loss, other Hematologic/Lymphatic: Denies: no symptoms, see HPI, anemia, blood clots, easy bleeding, easy bruising, swollen glands, diathesis, other All Other Systems: negative except mentioned in HPI Physical Exam General Appearance: no apparent distress, alert HEENT: normocephalic, atraumatic Neck: supple Respiratory/Chest: lungs clear, normal breath sounds, no respiratory distress Cardiovascular/Chest: normal rate, regular rhythm Abdomen: non tender, soft Neurologic: alert, oriented x 3 Last 24 Hour Vital Signs Date Time Temp Pulse Resp B/P (MAP) Pulse Ox O2 Delivery O2 Flow Rate FiO2 07/08/19 09:00 Room Air 07/08/19 08:50 64 147/84 07/08/19 08:49 147/84 07/08/19 08:00 75 07/08/19 08:00 97.5 64 18 147/84 (105) 98 07/08/19 06:41 97.2 07/08/19 04:00 70 07/08/19 04:00 97.2 66 18 144/91 (108) 97 07/08/19 01:54 Room Air 07/08/19 01:14 Room Air 07/08/19 00:00 80 07/08/19 00:00 97.0 75 16 141/93 (109) 98 07/07/19 23:45 97.2 82 17 160/92 100 Room Air 07/07/19 23:45 97.2 82 17 160/92 100 Room Air 07/07/19 23:43 180/100 07/07/19 22:31 97.2 07/07/19 22:10 97.2 78 16 155/96 100 Room Air 07/07/19 21:30 160/95 07/07/19 21:25 97.2 80 17 163/106 100 Room Air 07/07/19 21:25 66 17 Room Air 07/07/19 21:15 97.2 66 17 163/106 (125) 100 Room Air Intake and Output 07/07/19 07/08/19 19:00 07:00 Intake Total 1000 ml Balance 1000 ml Intake IV Total 1000 ml # Voids 1 # Bowel Movements 2 Laboratory Tests Test 07/07/19 21:25 07/07/19 23:30 07/08/19 04:00 White Blood Count 8.0 K/UL (4.8-10.8) 6.7 K/UL (4.8-10.8) Red Blood Count 4.84 M/UL (4.70-6.10) 4.51 M/UL (4.70-6.10) L Hemoglobin 14.4 G/DL (14.2-18.0) 14.1 G/DL (14.2-18.0) L Hematocrit 45.9 % (42.0-52.0) 42.1 % (42.0-52.0) Mean Corpuscular Volume 95 FL (80-99) 93 FL (80-99) Mean Corpuscular Hemoglobin 29.8 PG (27.0-31.0) 31.2 PG (27.0-31.0) H Mean Corpuscular Hemoglobin Concent 31.4 G/DL (32.0-36.0) L 33.4 G/DL (32.0-36.0) Red Cell Distribution Width 14.6 % (11.6-14.8) 13.8 % (11.6-14.8) Platelet Count 200 K/UL (150-450) 176 K/UL (150-450) Mean Platelet Volume 9.6 FL (6.5-10.1) 8.6 FL (6.5-10.1) Neutrophils (%) (Auto) 56.0 % (45.0-75.0) 48.6 % (45.0-75.0) Lymphocytes (%) (Auto) 25.3 % (20.0-45.0) 32.1 % (20.0-45.0) Monocytes (%) (Auto) 7.0 % (1.0-10.0) 7.1 % (1.0-10.0) Eosinophils (%) (Auto) 9.5 % (0.0-3.0) H 11.1 % (0.0-3.0) H Basophils (%) (Auto) 2.2 % (0.0-2.0) H 1.1 % (0.0-2.0) Prothrombin Time 10.7 SEC (9.30-11.50) Prothromb Time International Ratio 1.0 (0.9-1.1) Activated Partial Thromboplast Time 28 SEC (23-33) Sodium Level 144 MMOL/L (136-145) 142 MMOL/L (136-145) Potassium Level 4.0 MMOL/L (3.5-5.1) 3.4 MMOL/L (3.5-5.1) L Chloride Level 106 MMOL/L (98-107) 107 MMOL/L (98-107) Carbon Dioxide Level 21 MMOL/L (21-32) 22 MMOL/L (21-32) Anion Gap 17 mmol/L (5-15) H 14 mmol/L (5-15) Blood Urea Nitrogen 12 mg/dL (7-18) 9 mg/dL (7-18) Creatinine 1.7 MG/DL (0.55-1.30) H 1.6 MG/DL (0.55-1.30) H Estimat Glomerular Filtration Rate 51.5 mL/min (>60) 55.3 mL/min (>60) Glucose Level 89 MG/DL (74-106) 115 MG/DL (74-106) H Calcium Level 9.4 MG/DL (8.5-10.1) 8.6 MG/DL (8.5-10.1) Total Bilirubin 0.5 MG/DL (0.2-1.0) Aspartate Amino Transf (AST/SGOT) 15 U/L (15-37) Alanine Aminotransferase (ALT/SGPT) 20 U/L (12-78) Alkaline Phosphatase 48 U/L (46-116) Troponin I 0.012 ng/mL (0.000-0.056) 0.012 ng/mL (0.000-0.056) Pro-B-Type Natriuretic Peptide 143 pg/mL (0-125) H Total Protein 7.6 G/DL (6.4-8.2) Albumin 4.4 G/DL (3.4-5.0) Globulin 3.2 g/dL Albumin/Globulin Ratio 1.4 (1.0-2.7) Lipase 223 U/L (73-393) Urine Opiates Screen Negative (NEGATIVE) Urine Barbiturates Screen Negative (NEGATIVE) Phencyclidine (PCP) Screen Negative (NEGATIVE) Urine Amphetamines Screen Negative (NEGATIVE) Urine Benzodiazepines Screen Negative (NEGATIVE) Urine Cocaine Screen Negative (NEGATIVE) Urine Marijuana (THC) Screen Positive (NEGATIVE) H Height (Feet): 5 Height (Inches): 6.00 Weight (Pounds): 187 Medications Current Medications Medications (Trade) Dose Ordered Sig/Mahsa Route PRN Reason Start Time Stop Time Status Last Admin Dose Admin Acetaminophen (Tylenol) 650 mg Q4H PRN ORAL Mild Pain (Pain Scale 1-3) 07/07/19 22:30 08/06/19 22:29 Al Hydroxide/Mg Hydroxide (Mylanta II) 30 ml Q6H PRN ORAL dyspepsia 07/07/19 22:30 08/06/19 22:29 Allopurinol (Zyloprim) 100 mg DAILY ORAL 07/08/19 09:00 08/07/19 08:59 07/08/19 08:49 Amlodipine Besylate (Norvasc) 2.5 mg DAILY ORAL 07/08/19 09:00 08/07/19 08:59 07/08/19 08:50 Aspirin (ASA) 81 mg DAILY ORAL 07/08/19 09:00 08/07/19 08:59 07/08/19 08:50 Dextrose (Dextrose 50%) 25 ml Q30M PRN IV Hypoglycemia 07/07/19 22:30 08/06/19 22:29 Dextrose (Dextrose 50%) 50 ml Q30M PRN IV Hypoglycemia 07/07/19 22:30 08/06/19 22:29 Diphenhydramine HCl (Benadryl) 25 mg Q6H PRN ORAL Itching/Pruritis 07/07/19 22:30 08/06/19 22:29 Docusate Sodium (Colace) 100 mg EVERY 12 HOURS ORAL 07/08/19 09:00 08/07/19 08:59 07/08/19 08:49 Gabapentin (Neurontin) 800 mg TID ORAL 07/08/19 09:00 08/07/19 08:59 07/08/19 08:49 Heparin Sodium (Porcine) (Heparin 5000 units/ml) 5,000 units EVERY 12 HOURS SUBQ 07/08/19 09:00 08/07/19 08:59 07/08/19 08:51 Hydromorphone HCl (Dilaudid) 0.5 mg Q4H PRN IVP Moderate Pain (Pain Scale 4-6) 07/07/19 22:30 07/14/19 22:29 Hydromorphone HCl (Dilaudid) 1 mg Q4H PRN IVP Severe Pain (Pain Scale 7-10) 07/07/19 22:30 07/14/19 22:29 07/08/19 10:15 Iohexol (Omnipaque 350 100ml) 100 ml NOW PRN INJ Radiology Procedure 07/07/19 21:30 07/09/19 21:20 Iohexol (Omnipaque 350 100ml) 100 ml NOW PRN INJ Radiology Procedure 07/07/19 21:30 07/09/19 21:20 Isosorbide Mononitrate (Imdur) 30 mg DAILY ORAL 07/08/19 09:00 08/07/19 08:59 07/08/19 08:49 Lorazepam (Ativan 2mg/ml 1ml) 0.5 mg Q4H PRN IV For Anxiety 07/07/19 22:30 07/14/19 22:29 Nitroglycerin (Ntg) 0.4 mg Q5M PRN SL Prn Chest Pain 07/07/19 22:30 08/06/19 22:29 Ondansetron HCl (Zofran) 4 mg Q6H PRN IVP Nausea & Vomiting 07/07/19 22:30 08/06/19 22:29 Pantoprazole (Protonix) 40 mg DAILY ORAL 07/08/19 09:00 08/07/19 08:59 07/08/19 08:50 Regadenoson (Lexiscan) 0.4 mg ONCE PRN IV STRESS TEST 07/08/19 10:45 07/10/19 23:59 Assessment/Plan Problem List: (1) Chest pain ICD Codes: R07.9 - Chest pain, unspecified SNOMED: 94438282 Qualifiers: Qualified Codes: R07.9 - Chest pain, unspecified (2) HTN (hypertension) ICD Codes: I10 - Essential (primary) hypertension SNOMED: 13075241 (3) Renal failure (ARF), acute on chronic ICD Codes: N17.9 - Acute kidney failure, unspecified; N18.9 - Chronic kidney disease, unspecified SNOMED: 548027074 (4) CKD (chronic kidney disease) ICD Codes: N18.9 - Chronic kidney disease, unspecified SNOMED: 526997627 (5) Chest pain ICD Codes: R07.9 - Chest pain, unspecified SNOMED: 02793647 (6) Chest pain ICD Codes: R07.9 - Chest pain, unspecified SNOMED: 07140202 (7) Hypertensive urgency ICD Codes: I16.0 - Hypertensive urgency SNOMED: 983581030 (8) Chest wall pain ICD Codes: R07.89 - Other chest pain SNOMED: 080063233 Status: stable Assessment/Plan: #Recurrent chest pain #?chest wall pain -EKG, troponin so far negative. -Cardiology consult appreciated. -f/u TTE, stress test (ordered) -Continue imdur 30 -continue asa 81 -NTG paste, SL prn for chest pain #JONATHAN on CKD3 #CKD3 unclear baseline. -nephro consult appreciated. -trend BMP #HTN -continue lisinopril #Hx of gout -continue allopurinol. Extra 36 minutes spent on chart review of pertinent information, including labs , medications, imaging, prior physiciani documentation. Time of note does not reflect the time of encounter. Brionna Smith M.D. Jul 08, 2019 11:50
[2019-07-08 12:00] VITALS: BP 122/74
--- NOTE | 2019-07-08 12:18 | Diagnostic Imaging Report ---
Indication: Dyspnea Comparison: 06/04/2019 A single view chest radiograph was obtained. Findings: Cardiomediastinal appearance is within normal limits for age. The lungs are clear. Pulmonary vascularity is appropriate. The diaphragmatic contour is smooth and costophrenic angles are sharp. No pleural effusions are identified. The bones are unremarkable. Impression: No acute findings
[2019-07-08] MEDS ORDERED: Metoprolol Tartrate 5mg/5ml Inj IVP SCH (14:00)
[2019-07-08 16:00] VITALS: BP 138/70
[2019-07-08 20:00] VITALS: BP 140/86
[2019-07-08 22:38] LABS: APPEARANCE,URINE CLEAR; BILIRUBIN, URINE NEGATIVE (NEGATIVE); GLUCOSE, URINE (UA) NEGATIVE (NEGATIVE); KETONES,URINE NEGATIVE (NEGATIVE); LEUKOCYTE ESTERASE ,URINE NEGATIVE (NEGATIVE); NITRITE,URINE NEGATIVE (NEGATIVE); PH,URINE 6 (4.5-8.0); PROTEIN,URINE NEGATIVE (NEGATIVE); UROBILINOGEN,URINE NORMAL MG/DL (0.0-1.0)
[2019-07-08 22:39] LABS: COLOR,URINE YELLOW
[2019-07-09] VITALS: BP 131/84
[2019-07-09 04:00] VITALS: BP 137/76
[2019-07-09] MEDS: HYDROmorphone 1mg/ml Carpuject IVP PRN ×5 (04:06→23:12)
[2019-07-09 08:00] VITALS: BP 140/92
[2019-07-09] MEDS ORDERED: DOBUTamine 250mg/250ml Premix IV ONE (08:18)
[2019-07-09] MEDS ORDERED: Metoprolol Tartrate 5mg/5ml Inj ONE (08:18)
[2019-07-09] MEDS: Imdur 30mg tab ORAL SCH (08:52)
[2019-07-09] MEDS: Allopurinol 100mg Tab ORAL SCH (08:53)
[2019-07-09] MEDS: Docusate 100mg cap ORAL SCH ×2 (08:53→21:54)
[2019-07-09] MEDS: Aspirin Baby 81mg ORAL SCH (08:54)
[2019-07-09] MEDS: Heparin 5000 units/ml inj SUBQ SCH ×2 (08:56→21:55)
--- NOTE | 2019-07-09 10:00 | Consultation ---
DATE OF CONSULTATION: 07/08/2019 CARDIOLOGY CONSULTATION CONSULTING PHYSICIAN: Dani Gould M.D. REFERRING PHYSICIAN: Sumeet Omer M.D. REASON FOR CONSULTATION: Chest pain. HISTORY OF PRESENT ILLNESS: The patient is a 54-year-old gentleman with history of hypertension, chronic kidney disease, and history of CVA with right hemiparesis as well as history of craniotomy at [facility] for intracranial bleed. His stroke was in 2010 and 2016. The patient also has history of spinal fusion. The patient has history of recurrent chest pain and underwent cardiac catheterization in 2017 at [facility] that showed no evidence of coronary artery disease. The patient's previous admission was at [place] in February 2019 when he had troponin elevation 00:48 to renal failure. The patient presented to the emergency room with chest pain that started at 5 o'clock in the afternoon, was aggravated with exertion and alleviated with rest. The patient had some shortness of breath and came to the emergency room for further evaluation. His troponins have been negative, however. REVIEW OF SYSTEMS: Negative other than what was mentioned in history of present illness. PAST MEDICAL HISTORY: As mentioned above. FAMILY HISTORY: Noncontributory. SOCIAL HISTORY: Denies smoking or drinking alcohol. PHYSICAL EXAMINATION: VITAL SIGNS: Blood pressure 147/84, pulse 64, respirations 18, and he is afebrile. HEAD AND NECK: Showed no JVD, has scar of prior tracheostomy that is closed. LUNGS: Clear. CARDIOVASCULAR: Shows regular S1 and S2 with no gallop or murmur. ABDOMEN: Soft. EXTREMITIES: No pitting edema. LABORATORY DATA: Sodium 142, potassium 3.4, BUN 9, creatinine 1.6, and glucose 115. Troponin negative x2. BNP is 143. White count is 6.7, hemoglobin 14.5, hematocrit 42.1, and platelet count 176,000. ASSESSMENT AND PLAN: 1. Chest pain, rule out for myocardial infarction. Cardiac catheterization in 2017 showed no evidence of coronary artery disease. We will proceed with nuclear stress as well as echocardiogram for further evaluation. His EKG also does not show any acute ischemic changes. 2. Hypertension. Continue amlodipine 2.5 mg daily and Imdur 30 mg daily. I will add p.r.n. hydralazine to his medical regimen. 3. Chronic kidney disease creatinine 02:48 1.6 to 1.7. Further evaluation by Nephrology. 4. Urine tox screen positive for only marijuana. 5. History of craniotomy, on Neurontin. 6. History of CVA with hemiparesis. Thank you very much for allowing me to participate in the care of this patient. Please do not hesitate to contact me for any questions regarding my evaluation. Dani Gould M.D. DR: ANN JOB#: [id number] CC:
[2019-07-09 12:00] VITALS: BP 159/97
--- NOTE | 2019-07-09 12:33 | Nephrology Progress Note ---
Assessment/Plan Plan #JONATHAN on CKD? chronic compenent likely due to hypertensive nephropathy #hypokalemia #Chest pain r/o ACS #HTN # gout #h/o spinal fusion # history of craniotomy #history of tracheostomy - BMP pending today - UTp/cr - hold lisinopril - continue amlodipine 2.5mg daily - continue imdur 30mg daily - hydralazine prn - renal US pending - continue allopurinol 100mg daily - monitor BP - monitor BMP - 2d echo--> pending - stress test per cardiology- > pending Subjective ROS Limited/Unobtainable: No Constitutional: Denies: no symptoms, chills, diaphoresis, fever, malaise, weakness, other HEENT: Denies: no symptoms, eye pain, blurred vision, tearing, double vision, ear pain, ear discharge, nose pain, nose congestion, throat pain, throat swelling, mouth pain, mouth swelling, other Genitourinary: Denies: no symptoms, burning, discharge, frequency, flank pain, hematuria, incontinence, pain, urgency, other Neurologic/Psychiatric: Denies: no symptoms, anxiety, depressed, emotional problems, headache, numbness, paresthesia, pre-existing deficit, seizure, tingling, tremors, weakness, other Subjective No further chest pain BMP pending BP mostly stable renal US pending Objective Objective Last 24 Hour Vital Signs Date Time Temp Pulse Resp B/P (MAP) Pulse Ox O2 Delivery O2 Flow Rate FiO2 07/09/19 12:00 97.9 84 18 159/97 (117) 97 07/09/19 09:00 Room Air 07/09/19 08:54 66 140/92 07/09/19 08:52 140/92 07/09/19 08:00 97.7 74 18 140/92 (108) 99 07/09/19 08:00 74 07/09/19 04:00 74 07/09/19 04:00 97.2 69 16 137/76 (96) 98 07/09/19 00:00 97.9 82 16 131/84 (100) 98 07/09/19 00:00 86 07/08/19 21:00 Room Air 07/08/19 20:00 60 07/08/19 20:00 99.1 72 16 140/86 (104) 98 07/08/19 16:00 89 3/3/20 16:00 98.2 86 18 138/70 (92) 96 07/08/19 13:59 124 143/94 Intake and Output 07/08/19 07/09/19 19:00 07:00 Intake Total 240 ml Output Total 350 ml 500 ml Balance -350 ml -260 ml Intake Oral 240 ml Output Urine Total 350 ml 500 ml # Voids 4 # Bowel Movements 1 Laboratory Tests 07/08/19 22:00: Urine Color Yellow, Urine Appearance Clear, Urine pH 6, Urine Specific [place] 1.020, Urine Protein Negative, Urine Glucose (UA) Negative, Urine Ketones Negative, Urine Blood Negative, Urine Nitrite Negative, Urine Bilirubin Negative , Urine Urobilinogen Normal, Urine Leukocyte Esterase Negative, Urine RBC 0-2H, Urine WBC 0-2, Urine Squamous Epithelial Cells Occasional, Urine Bacteria Occasional, Urine Mucus FewH, Urine Random Total Protein 17H, Urine Creatinine 266.1H 07/09/19 05:45: Uric Acid 7.3H Height (Feet): 5 Height (Inches): 6.00 Weight (Pounds): 191 General Appearance: WD/WN, no apparent distress EENT: PERRL/EOMI, normal ENT inspection Neck: non-tender Cardiovascular: normal peripheral pulses, normal rate, regular rhythm Respiratory/Chest: lungs clear Abdomen: normal bowel sounds, soft Extremities: normal range of motion, non-tender, normal inspection Neurologic: alert, oriented x 3, responsive, normal mood/affect Jonathan Sanchez M.D. Jul 09, 2019 12:33
[2019-07-09 13:07] LABS: ANION GAP 12 mmol/L (5-15); BLOOD UREA NITROGEN 10 mg/dL (7-18); CALCIUM 9.1 MG/DL (8.5-10.1); CARBON DIOXIDE 26 MMOL/L (21-32); CHLORIDE 104 MMOL/L (98-107); CREATININE 1.9 MG/DL (0.55-1.30); POTASSIUM 4.3 MMOL/L (3.5-5.1); SODIUM 142 MMOL/L (136-145)
--- NOTE | 2019-07-09 13:18 | Diagnostic Imaging Report ---
Indication:Elevated Bun and Creatinine. Technique: Grayscale and duplex Doppler imaging of the kidneys performed. Comparison: None Findings: The size, contour, and echogenicity of both kidneys are within normal limits. There is no hydronephrosis.. There is a 1 cm hypodensity in the right kidney probably cyst. This is not optimally imaged. The right kidney measures 9.5 cm. in length. The left kidney measures 9.3 cm. in length. The IVC is patent. Urinary bladder is unremarkable. Bilateral ureteral jets noted. IMPRESSION: Negative ultrasound the kidneys. Probable small right renal cyst
--- NOTE | 2019-07-09 14:06 | Cardiac Electrophysiology PN ---
Assessment/Plan Assessment/Plan 1. Chest pain, ruled out for myocardial infarction. Cardiac catheterization in 2017 showed no evidence of coronary artery disease. His EKG also does not show any acute ischemic changes. Dobutamine Echo yesterday was nonischemic 2. Hypertension. Continue amlodipine 2.5 mg daily, Imdur 30 mg daily and p.r.n. hydralazine 3. Chronic kidney disease 1.6 to 1.7. 4. Urine tox screen positive for only marijuana. 5. History of craniotomy, on Neurontin. 6. History of CVA with hemiparesis. Subjective Subjective CP. No [place]. Cardiac cath at [facility] no CAD in 2017 Had Echo and stress test yesterday Persistently asking for Dilaudid Objective Last 24 Hour Vital Signs Date Time Temp Pulse Resp B/P (MAP) Pulse Ox O2 Delivery O2 Flow Rate FiO2 07/09/19 12:00 75 07/09/19 12:00 97.9 84 18 159/97 (117) 97 07/09/19 09:00 Room Air 07/09/19 08:54 66 140/92 07/09/19 08:52 140/92 07/09/19 08:00 97.7 74 18 140/92 (108) 99 07/09/19 08:00 74 07/09/19 04:00 74 07/09/19 04:00 97.2 69 16 137/76 (96) 98 07/09/19 00:00 97.9 82 16 131/84 (100) 98 07/09/19 00:00 86 07/08/19 21:00 Room Air 07/08/19 20:00 60 07/08/19 20:00 99.1 72 16 140/86 (104) 98 07/08/19 16:00 89 07/08/19 16:00 98.2 86 18 138/70 (92) 96 Intake and Output 07/08/19 07/09/19 19:00 07:00 Intake Total 240 ml Output Total 350 ml 500 ml Balance -350 ml -260 ml Intake Oral 240 ml Output Urine Total 350 ml 500 ml # Voids 4 # Bowel Movements 1 Laboratory Tests Test 07/08/19 22:00 07/09/19 05:45 Urine Color Yellow Urine Appearance Clear Urine pH 6 (4.5-8.0) Urine Specific [place] 1.020 (1.005-1.035) Urine Protein Negative (NEGATIVE) Urine Glucose (UA) Negative (NEGATIVE) Urine Ketones Negative (NEGATIVE) Urine Blood Negative (NEGATIVE) Urine Nitrite Negative (NEGATIVE) Urine Bilirubin Negative (NEGATIVE) Urine Urobilinogen Normal MG/DL (0.0-1.0) Urine Leukocyte Esterase Negative (NEGATIVE) Urine RBC 0-2 /HPF (0 - 0) H Urine WBC 0-2 /HPF (0 - 0) Urine Squamous Epithelial Cells Occasional /LPF Urine Bacteria Occasional /HPF (NONE) Urine Mucus Few /LPF (NONE/OCC) H Urine Random Total Protein 17 MG/DL (< 11.9) H Urine Creatinine 266.1 MG/DL (30.0-125.0) H Sodium Level 142 MMOL/L (136-145) Potassium Level 4.3 MMOL/L (3.5-5.1) Chloride Level 104 MMOL/L (98-107) Carbon Dioxide Level 26 MMOL/L (21-32) Anion Gap 12 mmol/L (5-15) Blood Urea Nitrogen 10 mg/dL (7-18) Creatinine 1.9 MG/DL (0.55-1.30) H Estimat Glomerular Filtration Rate 45.3 mL/min (>60) Glucose Level 103 MG/DL (74-106) Uric Acid 7.3 MG/DL (2.6-7.2) H Calcium Level 9.1 MG/DL (8.5-10.1) Objective HEAD AND NECK: Showed no JVD, has scar of prior tracheostomy that is closed. LUNGS: Clear. CARDIOVASCULAR: Shows regular S1 and S2 with no gallop or murmur. ABDOMEN: Soft. EXTREMITIES: No pitting edema. Dani Gould MD Jul 09, 2019 14:06
--- NOTE | 2019-07-09 14:37 | CDS Physician Query ---
Clarification is required for compliance, coding accuracy, and to reflect severity of illness for this patient Dear Dr. Dani Gould Date 07/09/2019 Chiropractic Physician/CDS' Name Ana Nascimento Clinical Documentation states: HNP: 54 year old male with hx of recurrent chest pain (no CAD on cath in 2017), HTN, gout, presenting with chest pain that started yesterday. He reports resting at home around 5:30PM when he suddenly felt chest pain that self resolved after 2 minutes 07/08 Cardio note: hest pain, ruled out for myocardial infarction. Cardiac catheterization in 2017 showed no evidence of coronary artery disease. His EKG also does not show any acute ischemic changes. Dobutamine Echo yesterday was nonischemic Please document the suspected etiology of Chest Pain: [] Aortic dissection [] Acute myocardial infarction [] Acute Coronary Syndrome [] Pericarditis [] Anxiety [] Cancer [] Pneumonia [] Costochondritis [] Pneumothorax [] GERD/Esophagitis [] Pulmonary embolism [] Other: [] Unable to determine Present on Admission: [] Yes [] No [] Clinically Undetermined Physician signature Date Please also document in your Progress Notes and/or Discharge Summary and indicate if the condition was present on admission. MTDD
[2019-07-09 16:00] VITALS: BP 141/88
--- NOTE | 2019-07-09 16:03 | General Progress Note ---
Assessment/Plan Problem List: (1) Chest pain ICD Codes: R07.9 - Chest pain, unspecified SNOMED: 32506778 Qualifiers: Qualified Codes: R07.9 - Chest pain, unspecified (2) HTN (hypertension) ICD Codes: I10 - Essential (primary) hypertension SNOMED: 18877102 (3) Renal failure (ARF), acute on chronic ICD Codes: N17.9 - Acute kidney failure, unspecified; N18.9 - Chronic kidney disease, unspecified SNOMED: 734787098 (4) CKD (chronic kidney disease) ICD Codes: N18.9 - Chronic kidney disease, unspecified SNOMED: 898177407 (5) Chest pain ICD Codes: R07.9 - Chest pain, unspecified SNOMED: 34334646 (6) Chest pain ICD Codes: R07.9 - Chest pain, unspecified SNOMED: 72226737 (7) Hypertensive urgency ICD Codes: I16.0 - Hypertensive urgency SNOMED: 556274923 (8) Chest wall pain ICD Codes: R07.89 - Other chest pain SNOMED: 973626969 Status: stable, unchanged Assessment/Plan: #Recurrent chest pain #?chest wall pain -EKG, troponin so far negative. -Cardiology consult appreciated. -stress test negative. -Continue imdur 30 -continue asa 81 -NTG paste, SL prn for chest pain #JONATHAN on CKD3 #CKD3 unclear baseline. -nephro consult appreciated. -trend BMP #HTN -continue lisinopril #Hx of gout -continue allopurinol. Time spent on encounter: 35 mins, >50% on counseling, coordination of care. Time of note does not reflect the time of encounter. Subjective Date patient seen: Jul 09, 2019 Time patient seen: 11:30 Constitutional: Denies: no symptoms, chills, diaphoresis, fever, malaise, weakness, other HEENT: Denies: no symptoms, eye pain, blurred vision, tearing, double vision, ear pain, ear discharge, nose pain, nose congestion, throat pain, throat swelling, mouth pain, mouth swelling, other Cardiovascular: Reports: no symptoms, chest pain, edema, irregular heart rate, lightheadedness, palpitations, syncope, other Respiratory: Denies: no symptoms, cough, orthopnea, shortness of breath, SOB with excertion, SOB at rest, sputum, stridor, wheezing, other Gastrointestinal/Abdominal: Denies: no symptoms, abdomen distended, abdominal pain, black stools, tarry stools, blood in stool, constipated, diarrhea, difficulty swallowing, nausea, poor appetite, poor fluid intake, rectal bleeding , vomiting, other Genitourinary: Denies: no symptoms, burning, discharge, frequency, flank pain, hematuria, incontinence, pain, urgency, other Neurologic/Psychiatric: Denies: no symptoms, anxiety, depressed, emotional problems, headache, numbness, paresthesia, pre-existing deficit, seizure, tingling, tremors, weakness, other Endocrine: Denies: no symptoms, excessive sweating, flushing, intolerance to cold, intolerance to heat, increased hunger, increased thirst, increased urine, unexplained weight gain, unexplained weight loss, other Hematologic/Lymphatic: Denies: no symptoms, anemia, easy bleeding, easy bruising, other Allergies: Coded Allergies: KETOROLAC (Unverified Adverse Reaction, Intermediate, n/v, 08/11/18) Uncoded Allergies: TORODOL (Allergy, Unknown, 02/25/16) Subjective still having intermittent chest pain, lasting 2-3 minutes, last one this AM. Objective Last 24 Hour Vital Signs Date Time Temp Pulse Resp B/P (MAP) Pulse Ox O2 Delivery O2 Flow Rate FiO2 07/09/19 12:00 75 07/09/19 12:00 97.9 84 18 159/97 (117) 97 07/09/19 09:00 Room Air 07/09/19 08:54 66 140/92 07/09/19 08:52 140/92 07/09/19 08:00 97.7 74 18 140/92 (108) 99 07/09/19 08:00 74 07/09/19 04:00 74 07/09/19 04:00 97.2 69 16 137/76 (96) 98 07/09/19 00:00 97.9 82 16 131/84 (100) 98 07/09/19 00:00 86 07/08/19 21:00 Room Air 07/08/19 20:00 60 07/08/19 20:00 99.1 72 16 140/86 (104) 98 Intake and Output 07/08/19 07/09/19 19:00 07:00 Intake Total 240 ml Output Total 350 ml 500 ml Balance -350 ml -260 ml Intake Oral 240 ml Output Urine Total 350 ml 500 ml # Voids 4 # Bowel Movements 1 Laboratory Tests 07/08/19 22:00: Urine Color Yellow, Urine Appearance Clear, Urine pH 6, Urine Specific [place] 1.020, Urine Protein Negative, Urine Glucose (UA) Negative, Urine Ketones Negative, Urine Blood Negative, Urine Nitrite Negative, Urine Bilirubin Negative , Urine Urobilinogen Normal, Urine Leukocyte Esterase Negative, Urine RBC 0-2H, Urine WBC 0-2, Urine Squamous Epithelial Cells Occasional, Urine Bacteria Occasional, Urine Mucus FewH, Urine Random Total Protein 17H, Urine Creatinine 266.1H 07/09/19 05:45: Sodium Level 142, Potassium Level 4.3, Chloride Level 104, Carbon Dioxide Level 26, Anion Gap 12, Blood Urea Nitrogen 10, Creatinine 1.9H, Estimat Glomerular Filtration Rate 45.3, Glucose Level 103, Uric Acid 7.3H, Calcium Level 9.1 Height (Feet): 5 Height (Inches): 6.00 Weight (Pounds): 191 General Appearance: no apparent distress, alert Neck: supple Cardiovascular: normal rate, regular rhythm Respiratory/Chest: lungs clear, normal breath sounds Abdomen: non tender, soft Neurologic: alert, oriented x 3 Brionna Smith M.D. Jul 09, 2019 16:03
[2019-07-09 20:00] VITALS: BP 150/90
[2019-07-10] VITALS: BP 133/91
[2019-07-10 04:00] VITALS: BP 140/89
[2019-07-10] MEDS: HYDROmorphone 1mg/ml Carpuject IVP PRN ×3 (05:23→14:13)
[2019-07-10 08:00] VITALS: BP 159/100
[2019-07-10] MEDS: Heparin 5000 units/ml inj SUBQ SCH (08:07)
[2019-07-10] MEDS: Aspirin Baby 81mg ORAL SCH (08:07)
[2019-07-10] MEDS: Allopurinol 100mg Tab ORAL SCH (08:08)
[2019-07-10] MEDS: Imdur 30mg tab ORAL SCH (08:08)
[2019-07-10] MEDS: Docusate 100mg cap ORAL SCH (08:08)
--- NOTE | 2019-07-10 09:39 | Nephrology Progress Note ---
Assessment/Plan Plan #JONATHAN on CKD? chronic compenent likely due to hypertensive nephropathy - likely with superimposed pre-renal component #hypokalemia #Chest pain r/o ACS #HTN # gout #h/o spinal fusion # history of craniotomy #history of tracheostomy - start 1/2 ns at 75cc/hr0- for 24 hours - hold lisinopril - increase amlodipine to 5mg daily - continue imdur 30mg daily - hydralazine prn - renal US-> Negative ultrasound the kidneys. Probable small right renal cyst - continue allopurinol 100mg daily - monitor BP - monitor BMP - 2d echo--> pending - stress test per cardiology- > pending Subjective ROS Limited/Unobtainable: No Subjective No further chest pain Cr up to 1.9 BP elevated will increase amlodipine 5mg daily renal US: Negative ultrasound the kidneys. Probable small right renal cyst Objective Objective Last 24 Hour Vital Signs Date Time Temp Pulse Resp B/P (MAP) Pulse Ox O2 Delivery O2 Flow Rate FiO2 07/10/19 08:08 159/100 07/10/19 08:07 84 159/100 07/10/19 08:00 97.5 84 18 159/100 (119) 98 07/10/19 05:53 97.0 07/10/19 04:00 97.0 80 18 140/89 (106) 96 07/10/19 04:00 79 07/10/19 00:00 97.2 66 18 133/91 (105) 97 07/10/19 00:00 89 07/09/19 21:00 Room Air 07/09/19 20:00 76 07/09/19 20:00 97.7 79 18 150/90 (110) 95 07/09/19 16:00 89 07/09/19 16:00 98.2 77 19 141/88 (105) 96 07/09/19 12:00 75 07/09/19 12:00 97.9 84 18 159/97 (117) 97 Intake and Output 07/09/19 07/10/19 19:00 07:00 Intake Total 1200 ml Output Total 1300 ml Balance -100 ml Intake Oral 1200 ml Output Urine Total 1300 ml # Voids 3 Height (Feet): 5 Height (Inches): 6.00 Weight (Pounds): 191 Jonathan Sanchez M.D. Jul 10, 2019 09:39
--- NOTE | 2019-07-10 10:18 | Cardiac Electrophysiology PN ---
Assessment/Plan Assessment/Plan 1. Chest pain, ruled out for myocardial infarction. Cardiac catheterization in 2017 showed no evidence of coronary artery disease. His EKG also does not show any acute ischemic changes. Dobutamine Echo was nonischemic 2. Hypertension. Continue amlodipine 2.5 mg daily, Imdur 30 mg daily and p.r.n. hydralazine 3. Chronic kidney disease 1.6 to 1.7. 4. Urine tox screen positive for only marijuana. 5. History of craniotomy, on Neurontin. 6. History of CVA with hemiparesis. OK to DC Subjective Subjective CP. No [place]. Cardiac cath at [facility] no CAD in 2017 Had Echo and stress test. DC planning in progress Objective Last 24 Hour Vital Signs Date Time Temp Pulse Resp B/P (MAP) Pulse Ox O2 Delivery O2 Flow Rate FiO2 07/10/19 09:00 Room Air 07/10/19 08:08 159/100 07/10/19 08:07 84 159/100 07/10/19 08:00 97.5 84 18 159/100 (119) 98 07/10/19 08:00 79 07/10/19 05:53 97.0 07/10/19 04:00 97.0 80 18 140/89 (106) 96 07/10/19 04:00 79 07/10/19 00:00 97.2 66 18 133/91 (105) 97 07/10/19 00:00 89 07/09/19 21:00 Room Air 07/09/19 20:00 76 07/09/19 20:00 97.7 79 18 150/90 (110) 95 07/09/19 16:00 89 07/09/19 16:00 98.2 77 19 141/88 (105) 96 07/09/19 12:00 75 07/09/19 12:00 97.9 84 18 159/97 (117) 97 Intake and Output 07/09/19 07/10/19 19:00 07:00 Intake Total 1200 ml Output Total 1300 ml Balance -100 ml Intake Oral 1200 ml Output Urine Total 1300 ml # Voids 3 Objective HEAD AND NECK: Showed no JVD, has scar of prior tracheostomy that is closed. LUNGS: Clear. CARDIOVASCULAR: Shows regular S1 and S2 with no gallop or murmur. ABDOMEN: Soft. EXTREMITIES: No pitting edema. Dani Gould MD Jul 10, 2019 10:18
[2019-07-10 11:15] LABS: ANION GAP 9 mmol/L (5-15); BLOOD UREA NITROGEN 10 mg/dL (7-18); CALCIUM 9.2 MG/DL (8.5-10.1); CARBON DIOXIDE 26 MMOL/L (21-32); CHLORIDE 106 MMOL/L (98-107); CREATININE 1.6 MG/DL (0.55-1.30); POTASSIUM 3.8 MMOL/L (3.5-5.1); SODIUM 141 MMOL/L (136-145)
[2019-07-10 12:00] VITALS: BP 170/111
[2019-07-10 12:19] VITALS: BP 162/102
[2019-07-10] MEDS ORDERED: ISOSORBIDE DINI20 M2 PO (13:04)
[2019-07-10 13:24] VITALS: BP 136/101
== END 2019-07-10 15:02 | disposition home or self-care (01) | DRG 313 ==
LOC: EMR 21:19 → 2E 22:13 → EDBEDREQ 22:50
DX: R07.9 Chest pain, unspecified (principal); N17.9 Acute kidney failure, unspecified; I69.359 Hemiplegia and hemiparesis following cerebral infarction affecting unspecified side; I16.0 Hypertensive urgency; I12.9 Hypertensive chronic kidney disease with stage 1 through stage 4 chronic kidney disease, or unspecified chronic kidney disease; N18.3 Chronic kidney disease, stage 3 (moderate); Z88.8 Allergy status to other drugs, medicaments and biological substances; M10.9 Gout, unspecified; Z98.1 Arthrodesis status; Z79.82 Long term (current) use of aspirin; N28.1 Cyst of kidney, acquired
CPT/HCPCS: 36415; 71045; 76770; 80048; 80053; 80307; 81001; 82044; 82570; 83690; 83880; 84484; 84550; 85025; 85610; 85730; 93005; 93017; 93306; 93350; 96361; 96374; 99285; J7030; J8499

== ENCOUNTER 2019-07-12 12:13 | Emergency (ER) | payer SELFPAY ==
[~2019-07-12] VITALS: Ht 167.6 cm; Wt 84.8 kg
[~2019-07-12 12:13] MED LIST changes: +ISOSORBIDE DINI20 M2 PO
--- NOTE | 2019-07-12 12:35 | NUR ---
ED Nurse Note: Pt walked into ED w/ chest pain since 1999 last night. Pt states pain is sharp in L chest radiating to L arm. Pt was in hospital for chest pain 2 days ago which subsided then came back again. Pt denies nausea,vomiting. Pt has history of 2 strokes. EKG taken.
[2019-07-12 12:45] VITALS: BP 143/92
--- NOTE | 2019-07-12 13:01 | Emergency Room Report ---
History of Present Illness General Chief Complaint: Chest Pain Source: Patient Present Illness HPI Disclaimer: Please note that this report is being documented using DRAGON technology. This can lead to erroneous entry secondary to incorrect interpretation by the dictating instrument. HPI: 54-year-old male history of CKD, CVA, hemiparesis, presents for evaluation of chest pain. He was discharged from this facility 2 days ago after admission with similar complaints. He has been complaining of a left-sided sharp pain that is worse with bending and twisting motion without associated shortness of breath for some time. He was admitted and ruled out for MO. Review of chart show cardiac catheterization 2016 without any evidence of CAD. Scheduled to see his PMD in 2 days to schedule outpatient cardiology and further testing as needed. He was also complaining that he pulled something in his upper back. He turned his neck shoulder to the right and felt a "pop" in the left side of his neck. Notes worsening pain that radiates from the top of the neck down the left arm that sometimes down the left leg as well. States he has a history of cervical fusion from C3-C4 and C4-C5. Denies any numbness, tingling, weakness in the upper extremities or lower extremities at this time. Denies any urinary retention or fecal incontinence. PMH: Hypertension, CKD, CVA PSH: Cervical fusion, craniectomy Allergies: Toradol Social Hx: Denies Allergies: Coded Allergies: KETOROLAC (Unverified Adverse Reaction, Intermediate, n/v, 08/11/18) Uncoded Allergies: TORODOL (Allergy, Unknown, 02/25/16) Nursing Documentation-PMH Hx Hypertension: Yes Hx Cancer: No Hx Gastrointestinal Problems: Yes Hx Neurological Problems: Yes - 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) , Neuralgia & neuritis Hx Cerebrovascular Accident: Yes - CVA w/ Lt side weaknedss 2010,2016 Hx Transient Ischemic Attacks: Yes Hx Peripheral Neuropathy: Yes Hx Neurologic Surgery: Yes - Craniotomy at [facility]/ Intracranial hemorrage Review of Systems All Other Systems: negative except mentioned in HPI Physical Exam Vital Signs Date Time Temp Pulse Resp B/P (MAP) Pulse Ox O2 Delivery O2 Flow Rate FiO2 07/12/19 12:21 98.1 98 18 153/94 (113) 97 Room Air General: Awake and alert, no acute distress HEENT: NC/AT. EOMI. Neck: Supple, trachea midline Chest Wall: Tenderness over the sternum, right upper chest wall, left upper chest wall without deformity or crepitus Cardiovascular: RRR. S1 and S2 normal. No murmur appreciated Resp: Normal work of breathing. No cough, wheezing or crackles appreciated Abdomen: Abdomen is soft, nondistended. Nontender Skin: Intact. No abrasions, laceration or rash over the exposed skin MSK: Normal tone and bulk. Moving all extremities. No obvious deformity. Neuro: Awake and alert. Mentating appropriately. Back/Spine: No midline tenderness in the cervical, thoracic or lumbosacral spine. Tenderness palpation of the lower cervical spine and upper thoracic paraspinal region. No midline cervical tenderness. Medical Decision Making Diagnostic Impression: Primary Impression: Chronic pain Additional Impression: Cervical radiculopathy ER Course This is a 54-year-old male presenting for evaluation of chest and neck pain. Patient recently admitted and discharged 2 days ago for a chest discomfort. Last cardiac angiogram was 2016 showed no coronary artery disease. He is currently resting comfortably in his chest pain is reproducible. Will repeat EKG, cardiac enzymes and chest x-ray and will also obtain a x-ray of the cervical spine to check his hardware placement. He appears to have suffered a cervical strain though may also have muscle spasm, hardware dysfunction, occult fracture, dislocation that needs further work-up. Laboratory Tests Test 07/12/19 12:41 White Blood Count 6.9 K/UL (4.8-10.8) Red Blood Count 4.68 M/UL (4.70-6.10) L Hemoglobin 14.4 G/DL (14.2-18.0) Hematocrit 43.4 % (42.0-52.0) Mean Corpuscular Volume 93 FL (80-99) Mean Corpuscular Hemoglobin 30.9 PG (27.0-31.0) Mean Corpuscular Hemoglobin Concent 33.2 G/DL (32.0-36.0) Red Cell Distribution Width 13.1 % (11.6-14.8) Platelet Count 198 K/UL (150-450) Mean Platelet Volume 8.7 FL (6.5-10.1) Neutrophils (%) (Auto) 66.0 % (45.0-75.0) Lymphocytes (%) (Auto) 16.1 % (20.0-45.0) L Monocytes (%) (Auto) 6.6 % (1.0-10.0) Eosinophils (%) (Auto) 10.2 % (0.0-3.0) H Basophils (%) (Auto) 1.1 % (0.0-2.0) Sodium Level 143 MMOL/L (136-145) Potassium Level 3.9 MMOL/L (3.5-5.1) Chloride Level 107 MMOL/L (98-107) Carbon Dioxide Level 25 MMOL/L (21-32) Anion Gap 12 mmol/L (5-15) Blood Urea Nitrogen 18 mg/dL (7-18) Creatinine 1.8 MG/DL (0.55-1.30) H Estimate Glomerular Filtration Rate 48.2 mL/min (>60) Glucose Level 132 MG/DL (74-106) H Calcium Level 9.4 MG/DL (8.5-10.1) Total Bilirubin 0.4 MG/DL (0.2-1.0) Aspartate Amino Transferase (AST) 21 U/L (15-37) Alanine Aminotransferase (ALT) 15 U/L (12-78) Alkaline Phosphatase 44 U/L (46-116) L Troponin I 0.000 ng/mL (0.000-0.056) Total Protein 7.8 G/DL (6.4-8.2) Albumin 4.1 G/DL (3.4-5.0) Globulin 3.7 g/dL Albumin/Globulin Ratio 1.1 (1.0-2.7) EKG Diagnostic Results EKG Time: 12:37 Rate: normal Rhythm: NSR ST Segments: no acute changes Other Impression Sinus rhythm, mild left axis deviation. No ST segment changes. Rhythm Strip Diag. Results Rhythm Strip Time: 12:37 EP Interpretation: yes Rate: 80s Rhythm: NSR, no PVC's, no ectopy Chest X-Ray Diagnostic Results Chest X-Ray Diagnostic Results : Chest X-Ray Ordered: Yes # of Views/Limited/Complete: 1 View Indication: Chest Pain Interpretation: no consolidation, no effusion, no pneumothorax, no acute cardiopulmonary disease Impression: No acute disease Electronically Signed by: Electronically signed by Dr. Peter Mario Reevaluation Time: 14:51 Last Vital Signs Date Time Temp Pulse Resp B/P (MAP) Pulse Ox O2 Delivery O2 Flow Rate FiO2 07/12/19 12:21 98.1 98 18 153/94 (113) 97 Room Air Reevaluation Impression Cardiac enzymes are unremarkable. Chest x-ray unremarkable. EKG shows left axis deviation and mild criteria for LVH consistent with his last EKG on 2019. This is unchanged from his previous EKG. Patient is treated with Robaxin , lidocaine patch and pain medication with mild improvement in his symptoms. He also has a history of cervical radiculopathy I believe this is the cause of his neck strain today. He will be treated with a Medrol Dosepak, continued Robaxin, NSAIDs and lidocaine patch. Discussed with his PMD, Dr. Lucas, who recommends with outpatient follow-up for this patient given his recent admission. He will follow-up in his office later this week. Discussed reasons to return to the emergency department. He understands and agrees with the treatment plan. Disposition: HOME, SELF-CARE Condition: Stable Scripts Methylprednisolone (Methylprednisolone*) 4MG Dspk 4 MG ORAL DIRECTED for 6 Days, #21 EA 0 Refills Day 1: Two tablets before breakfast, one after lunch, one after dinner, and two at bedtime. If started late in the day, take all six tablets at once or divide into two or three doses, unless otherwise directed by prescriber. Day 2: One tablet before breakfast, one after lunch, one after dinner, and two at bedtime Day 3: One tablet before breakfast, one after lunch, one after dinner, and one at bedtime Day 4: One tablet before breakfast, one after lunch, and one at bedtime Day 5: One tablet before breakfast and one at bedtime Day 6: One tablet before breakfast Prov: Peter Mario MD 07/12/19 Lidocaine Patch* (Lidoderm Patch*) 1 Each Adh..patch 1 PATCH TOPIC DAILY, #10 PATCH 0 Refills Patch(es) may remain in place for up to 12 hours in any 24-hour period. Prov: Peter Mario MD 07/12/19 Ibuprofen* (MOTRIN*) 600 Mg Tablet 600 MG ORAL Q8H PRN for For Pain, #30 TAB 0 Refills Prov: Peter Mario MD 07/12/19 Methocarbamol* (ROBAXIN-750*) 750 Mg Tablet 750 MG PO QID, #28 TAB 0 Refills Prov: Peter Mario MD 07/12/19 Referrals: Matheus Lucas MD (PCP) Peter Mario MD Jul 12, 2019 13:01
[2019-07-12 13:04] LABS: BASOPHILS % (AUTO) 1.1 % (0.0-2.0); EOSINOPHILS % (AUTO) 10.2 % (0.0-3.0); HEMATOCRIT 43.4 % (42.0-52.0); HEMOGLOBIN 14.4 G/DL (14.2-18.0); LYMPHOCYTES % (AUTO) 16.1 % (20.0-45.0); MEAN CORPUSCULAR VOLUME 93 FL (80-99); MONOCYTES % (AUTO) 6.6 % (1.0-10.0); PLATELET COUNT 198 K/UL (150-450); RED BLOOD COUNT 4.68 M/UL (4.70-6.10); RED CELL DISTRIBUTION WIDTH 13.1 % (11.6-14.8); WHITE BLOOD COUNT 6.9 K/UL (4.8-10.8)
[2019-07-12] MEDS ORDERED: Methocarbamol 750mg tab ORAL ONE (13:15)
[2019-07-12] MEDS ORDERED: Morphine Sulfate 2mg/ml Inj(IV/IM USE ONLY) IVP ONE (13:15)
[2019-07-12 13:20] LABS: ANION GAP 12 mmol/L (5-15); BLOOD UREA NITROGEN 18 mg/dL (7-18); CALCIUM 9.4 MG/DL (8.5-10.1); CARBON DIOXIDE 25 MMOL/L (21-32); CHLORIDE 107 MMOL/L (98-107); CREATININE 1.8 MG/DL (0.55-1.30); POTASSIUM 3.9 MMOL/L (3.5-5.1); SODIUM 143 MMOL/L (136-145)
--- NOTE | 2019-07-12 13:22 | Diagnostic Imaging Report ---
EXAM: XR Chest, 1 View CLINICAL HISTORY: CP TECHNIQUE: Frontal view of the chest. COMPARISON: No relevant prior studies available. FINDINGS: Lungs: Reduced lung volumes. No confluent consolidation. Pleural space: Unremarkable. No pneumothorax. Heart: Accentuation of cardiac silhouette. Mediastinum: Unremarkable. Bones/joints: No acute fracture. IMPRESSION: Reduced lung volumes. No confluent consolidation.
[2019-07-12 13:24] LABS: ALANINE AMINOTRANSFERASE 15 U/L (12-78); ALBUMIN 4.1 G/DL (3.4-5.0); ALBUMIN/GLOBULIN RATIO 1.1 (1.0-2.7); ALKALINE PHOSPHATASE 44 U/L (46-116); ASPARTATE AMINO TRANSFERASE 21 U/L (15-37); BILIRUBIN,TOTAL 0.4 MG/DL (0.2-1.0)
--- NOTE | 2019-07-12 13:59 | Diagnostic Imaging Report ---
EXAM: XR Cervical Spine, 2 or 3 Views CLINICAL HISTORY: PAIN TECHNIQUE: Frontal and lateral views of the cervical spine. COMPARISON: No relevant prior studies available. FINDINGS: Limitations: Limited due to overlapping of structures. No apparent fracture or malalignment. Vertebrae: See above. Disc spaces: Degenerative changes. Cervical fusion plate. Soft tissues: No radiodense foreign body. Earrings. IMPRESSION: Limited due to overlapping of structures. No apparent fracture or malalignment. CT can further assess as warranted
[2019-07-12] MEDS ORDERED: ROBAXIN-750750 MG PO (14:15)
[2019-07-12] MEDS ORDERED: MEDROL DOSEPAK4 MG ORAL (14:15)
[2019-07-12] MEDS ORDERED: LIDODERM700 M1 TOPIC (14:15)
[2019-07-12] MEDS ORDERED: IBUPROFEN600 MG ORAL (14:15)
--- NOTE | 2019-07-12 14:29 | NUR ---
ER DISCHARGE NOTE: Patient is cleared to be discharged per ERMD, pt is aox4, on room air, with stable vital signs. pt was given dc and prescription instructions, pt was able to verbalize understanding, pt id band and iv site removed without complications. pt is able to ambulate with steady gait. pt took all belongings. Pt instructed to f/u w/ outpatient doctor.
[2019-07-12 14:30] VITALS: BP 139/90
== END 2019-07-12 14:31 | disposition home or self-care (01) ==
LOC: EMR 12:45
DX: G89.29 Other chronic pain (principal); M54.12 Radiculopathy, cervical region; I12.9 Hypertensive chronic kidney disease with stage 1 through stage 4 chronic kidney disease, or unspecified chronic kidney disease; N18.9 Chronic kidney disease, unspecified; Z98.1 Arthrodesis status; G81.94 Hemiplegia, unspecified affecting left nondominant side; E11.42 Type 2 diabetes mellitus with diabetic polyneuropathy; Z88.8 Allergy status to other drugs, medicaments and biological substances
CPT/HCPCS: 36415; 71045; 72052; 80053; 84484; 85025; 93005; 96374; 99284; J2270

== ENCOUNTER 2019-07-20 21:07 | Emergency (ER) | payer SELFPAY ==
[~2019-07-20] VITALS: Ht 167.6 cm; Wt 81.6 kg
[~2019-07-20 21:07] MED LIST changes: +IBUPROFEN600 MG ORAL; +LIDODERM700 M1 TOPIC; +MEDROL DOSEPAK4 MG ORAL; +ROBAXIN-750750 MG PO
[2019-07-20 21:45] VITALS: BP 170/98
--- NOTE | 2019-07-20 21:45 | NUR ---
ED Nurse Note: ER DISCHARGE NOTE: Patient is cleared to be discharged per ERMD, pt is aox4, on room air, with stable vital signs. pt was given dc and prescription instructions, pt was able to verbalize understanding, pt id band removed without complications. pt is able to ambulate with steady gait. pt took all belongings.
--- NOTE | 2019-07-20 22:57 | Emergency Room Report ---
History of Present Illness General Chief Complaint: Chest Pain Source: Patient Present Illness HPI Patient presents with complaints of chest pain Reports that he had received injection for his neck pain several days ago and feels pain down to the chest on the left upper arm Denies any visual changes denies any shortness of breath denies any pleurisy Denies any vomiting denies any abdominal pain COVID-19 risk:Travel to affect: No Allergies: Coded Allergies: KETOROLAC (Unverified Adverse Reaction, Intermediate, n/v, 08/11/18) Uncoded Allergies: TORODOL (Allergy, Unknown, 02/25/16) Patient History Past Medical History: see triage record Reviewed Nursing Documentation: PMH: Agreed; PSxH: Agreed Nursing Documentation-PMH Hx Hypertension: Yes Hx Cancer: No Hx Gastrointestinal Problems: Yes Hx Neurological Problems: Yes - 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) , Neuralgia & neuritis Hx Cerebrovascular Accident: Yes - CVA w/ Lt side weaknedss 2010,2016 Hx Transient Ischemic Attacks: Yes Hx Peripheral Neuropathy: Yes Hx Neurologic Surgery: Yes - Craniotomy at [facility]/ Intracranial hemorrage Review of Systems All Other Systems: negative except mentioned in HPI Physical Exam Vital Signs Date Time Temp Pulse Resp B/P (MAP) Pulse Ox O2 Delivery O2 Flow Rate FiO2 07/20/19 21:16 98.2 90 14 170/98 (122) 96 Room Air Sp02 EP Interpretation: reviewed, normal General Appearance: well appearing, no apparent distress Head: normocephalic, atraumatic Eyes: bilateral eye PERRL, bilateral eye EOMI ENT: hearing grossly normal, normal pharynx, TMs + canals normal, uvula midline Neck: full range of motion, supple, no meningismus, no bony tend Respiratory: lungs clear, normal breath sounds, no rhonchi, no respiratory distress, no retraction, no accessory muscle use Cardiovascular #1: normal peripheral pulses, regular rate, rhythm, no edema, no gallop, no JVD, no murmur Gastrointestinal: normal bowel sounds, non tender, soft, no mass, no organomegaly, non-distended, no guarding, no hernia, no pulsatile mass, no rebound Musculoskeletal: normal inspection Neurologic: motor strength/tone normal, transportation attendant III-XII nml as tested, oriented x3 , sensory intact, responsive Psychiatric: mood/affect normal Skin: no rash Lymphatic: normal inspection, no adenopathy Medical Decision Making Diagnostic Impression: Primary Impression: Chest pain ER Course Patient is a fairly complex patient with multiple differential to consideration including but not limited to cardiac cardiopulmonary and vascular emergencies Patient's EKG is performed and is identical to his previous EKG patient has had fairly extensive inpatient care recently and repeat visit with further work-up I do not feel patient met criteria for repeating this work-up Is encouraged to follow closely with his primary physician EKG Diagnostic Results Rate: normal Rhythm: NSR ST Segments: no acute changes Rhythm Strip Diag. Results EP Interpretation: yes Rate: 77 Rhythm: NSR, no PVC's, no ectopy Last Vital Signs Date Time Temp Pulse Resp B/P (MAP) Pulse Ox O2 Delivery O2 Flow Rate FiO2 07/20/19 21:45 98.2 14 170/98 96 Room Air 07/20/19 21:30 90 Status: improved Disposition: HOME, SELF-CARE Condition: Stable Patient Instructions: Nonspecific Chest Pain Additional Instructions: Patient is provided with the discharge instructions notified to follow up with primary doctor in the next 2-3 days otherwise return to the er with any worsening symptoms. Please note that this report is being documented using [employer]Ready technology. This can lead to erroneous entry secondary to incorrect interpretation by the dictating instrument. Klever Krueger DO Jul 20, 2019 22:56
== END 2019-07-20 21:45 | disposition home or self-care (01) ==
LOC: EMR 21:40
DX: R07.9 Chest pain, unspecified (principal); Z88.6 Allergy status to analgesic agent; I10 Essential (primary) hypertension; G81.94 Hemiplegia, unspecified affecting left nondominant side; Z98.1 Arthrodesis status; G62.9 Polyneuropathy, unspecified
CPT/HCPCS: 99283